=== PATIENT | male | born 1960 | race Caucasian/White ===

== ENCOUNTER → 2018-04-02 11:35 | Outpatient (CLI) | payer SELFPAY ==
[2018-04-02 14:20] LABS: Anion Gap 9 (5-15); BUN 16 mg/dL (7-18); BUN/Creat Ratio 14.3 RATIO (10-20); Calcium,Total 8.9 mg/dL (8.5-10.1); Chloride 105 mmol/L (98-107); Cholesterol 221 mg/dL (200); Creatinine, Serum 1.12 mg/dL (0.70-1.30); EST Glomerular Filtration Rate 71 mL/min (>60); Est Glom Filt Rate - Afr Amer 86 mL/min (>60); Glucose 76 mg/dL (74-106); High Density Lipoprotein 36 mg/dL; PSA,Total - Annual Screen 2.43 ng/mL (0.00-4.00); Potassium 3.9 mmol/L (3.5-5.1); Sodium Level 137 mmol/L (136-145); Thyroid Stim Hormone (TSH) 1.64 uIU/mL (0.358-3.74); Triglycerides 207 mg/dL; Very Low Density Lipoprotein 41 mg/dL (5-40)
[2018-04-03 09:14] LABS: Vitamin D,25 Hydroxy 16.9 ng/mL (29.95-100.01)
== END ==
PROVIDERS: Family Provider Family Medicine; PCP Family Medicine; Visit Provider Family Medicine
DX: Z00.00 Encounter for general adult medical examination without abnormal findings (principal)
CPT/HCPCS: 36415; 80048; 80061; 82306; 84153; 84443; G0103

== ENCOUNTER → 2018-04-23 06:07 | Outpatient (CLI) | payer BC, SELFPAY ==
--- NOTE | 2018-04-23 20:24 | STRESSREP ---
Stress Test Report Date: 04/23/2018 Procedure: Exercise tolerance test/imaging study Indications: Hyperlipidemia; family history of cardiovascular disease Consent: Per the patient Procedure: The patient exercised on a Fawad protocol for 4 minutes and 30 seconds completing Stage I and 1 minute and 30 seconds of Stage II achieving a peak heart rate of 151 bpm (93 % predicted maximal heart rate) with a peak blood pressure 184/76 mmHg and a peak MET capacity of 6 METs. The baseline ECG demonstrated normal sinus rhythm. The peak exercise ECG demonstrated no obvious ECG changes. There were no cardiac dysrhythmias pretest, during exercise, or recovery. The functional capacity was considered decreased. There was no complaint of chest discomfort during exercise or recovery. The examination was discontinued secondary to dyspnea. Impression: 1. Technically adequate (percent predicted maximal heart rate greater than 85%) exercise tolerance test 2. Peak exercise ECG demonstrated no obvious ECG change 3. There were no cardiac dysrhythmias pretest, during exercise, or recovery. 4. Nuclear images pending Myocardial perfusion imaging study: Technique: The patient was injected with 11.5 mCi of technetium 99m Cardiolite and subsequently rest SPECT Cardiolite nuclear imaging was obtained in the horizontal long, vertical long, and short axis views. The patient exercised on a Fawad protocol for 4 minutes and 30 seconds completing Stage 1 and 1 minute and 30 seconds of Stage II achieving a peak heart rate of 151 bpm (93 % predicted maximal heart rate) with a peak blood pressure 184/76 mmHg and a peak MET capacity of 6 METs. The patient was injected with 33.1 mCi of technetium 99m Cardiolite and subsequently stress SPECT Cardiolite nuclear imaging was obtained in the horizontal long, vertical long, and short axis views. A gated Cardiolite study at peak stress was obtained. Interpretation: Rest and stress SPECT Cardiolite nuclear imaging status post realignment, normalization, and attenuation correction, demonstrates the appearance of a small area of subtle diminished tracer uptake near the apical segments without significant change between rest and stress. There is end systolic thickening and brightening. The gated Cardiolite study demonstrates myocardial thickening and inward wall motion. The reported LVEF is 59 %. Impression: 1. Rest and stress SPECT Cardiolite nuclear imaging demonstrate myocardial perfusion changes appearing compatible with the effects of physiologic apical thinning with no myocardial perfusion changes considered diagnostic for associated stress-induced myocardial ischemia. 2. The gated Cardiolite study reports an LVEF of 59 %. This note was generated with [employer] software. It may contain incorrect words, spelling, and punctuation that were not noted in checking the note before signing.
--- NOTE | 2018-04-23 20:28 | STRESSREP_ITS ---
Stress Test Report Date: 04/23/2018 Procedure: Exercise tolerance test/imaging study Indications: Hyperlipidemia; family history of cardiovascular disease Consent: Per the patient Procedure: The patient exercised on a Fawad protocol for 4 minutes and 30 seconds completing Stage I and 1 minute and 30 seconds of Stage II achieving a peak heart rate of 151 bpm (93 % predicted maximal heart rate) with a peak blood pressure 184/76 mmHg and a peak MET capacity of 6 METs. The baseline ECG demonstrated normal sinus rhythm. The peak exercise ECG demonstrated no obvious ECG changes. There were no cardiac dysrhythmias pretest, during exercise, or recovery. The functional capacity was considered decreased. There was no complaint of chest discomfort during exercise or recovery. The examination was discontinued secondary to dyspnea. Impression: 1. Technically adequate (percent predicted maximal heart rate greater than 85% ) exercise tolerance test 2. Peak exercise ECG demonstrated no obvious ECG change 3. There were no cardiac dysrhythmias pretest, during exercise, or recovery. 4. Nuclear images pending Myocardial perfusion imaging study: Technique: The patient was injected with 11.5 mCi of technetium 99m Cardiolite and subsequently rest SPECT Cardiolite nuclear imaging was obtained in the horizontal long, vertical long, and short axis views. The patient exercised on a Fawad protocol for 4 minutes and 30 seconds completing Stage 1 and 1 minute and 30 seconds of Stage II achieving a peak heart rate of 151 bpm (93 % predicted maximal heart rate) with a peak blood pressure 184/76 mmHg and a peak MET capacity of 6 METs. The patient was injected with 33.1 mCi of technetium 99m Cardiolite and subsequently stress SPECT Cardiolite nuclear imaging was obtained in the horizontal long, vertical long, and short axis views. A gated Cardiolite study at peak stress was obtained. Interpretation: Rest and stress SPECT Cardiolite nuclear imaging status post realignment, normalization, and attenuation correction, demonstrates the appearance of a small area of subtle diminished tracer uptake near the apical segments without significant change between rest and stress. There is end systolic thickening and brightening. The gated Cardiolite study demonstrates myocardial thickening and inward wall motion. The reported LVEF is 59 %. Impression: 1. Rest and stress SPECT Cardiolite nuclear imaging demonstrate myocardial perfusion changes appearing compatible with the effects of physiologic apical thinning with no myocardial perfusion changes considered diagnostic for associated stress-induced myocardial ischemia. 2. The gated Cardiolite study reports an LVEF of 59 %. This note was generated with [employer] software. It may contain incorrect words, spelling, and punctuation that were not noted in checking the note before signing.
== END ==
PROVIDERS: Family Provider Family Medicine; PCP Family Medicine; Visit Provider Family Medicine
DX: Z82.49 Family history of ischemic heart disease and other diseases of the circulatory system (principal)
CPT/HCPCS: 78452; 93017; A9500; A4216

== ENCOUNTER 2019-10-27 23:43 | Emergency (ER) | payer BC, SELFPAY ==
[2019-10-27 23:44] VITALS: BP 143/86; PULSE 81; RESP 18; TEMP 36.7; O2SAT 99; BMI 29.6
--- NOTE | 2019-10-27 23:57 | EKG12_ITS ---
Test Reason : SOB Blood Pressure : / mmHG Vent. Rate : 072 BPM Atrial Rate : 072 BPM P-R Int : 150 ms QRS Dur : 090 ms QT Int : 364 ms P-R-T Axes : 068 004 041 degrees QTc Int : 398 ms Normal sinus rhythm Possible Inferior infarct , age undetermined Abnormal ECG Confirmed by GM FRANCO, SAMMIE ([id number]), field map editor CARLOS SMALL ([id number]) on 10/28/2019 1:41:48 PM Referred By: GEOFFREY Confirmed By:SAMMIE WORRELL MD
--- NOTE | 2019-10-27 23:58 | ED.VIS.GEN ---
History of Present Illness Chief Complaint: Shortness of Breath Informant: Patient Narrative: Presents with dry cough muscle aches sore throat since yesterday. Denies any fevers or chills. No coronavirus exposures. He did not get a flu shot. 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 For the last 3 days after he vomited once he has had some mild chest burning. Denies any cardiac history. Current severity is mild. Worsened by nothing. Relieved by nothing. Denies any medical problems. Also stated he has bilateral red eyes with clear drainage Past Medical History - Allergies and Home Meds Allergies/Adverse Reactions: Allergies No Known Allergies Allergy (Verified 10/27/19 23:47) Primary Care Physician: Saad Whiting MD [Primary Care Provider] - Prior records reviewed: Yes Past Medical History: - - Denies Surgical History: cholecystectomy Lives: With Family Smoking Status: Never smoker Alcohol: None Drugs: None Review of Systems General: Denies: Chills, Fever, Sweats Eyes: Denies: Visual changes - bilaterally, Diplopia ENT: Reports: Sore throat. Denies: Rhinorrhea Cardiovascular: Reports: Chest pain. Denies: Palpitations Respiratory: Reports: Cough. Denies: Dyspnea, Dyspnea on exertion Gastrointestinal: Reports: Vomiting. Denies: Abdominal pain, Nausea, Diarrhea, Melena, Hematochezia Genitourinary: Denies: Dysuria, Hematuria, Frequency Musculoskeletal: Reports: Myalgias. Denies: Back pain, Extremity Pain Skin: Denies: Rash, Wounds Neurological: Denies: Headache, Weakness, Numbness Hematologic: Denies: Easy bruising, Easy bleeding Physical Exam Vital Signs/Narrative: Vital Signs Temp Pulse Resp BP Pulse Ox 10/27/19 23:44 98.1 F 81 18 143/86 H 99 General: Well nourished, Well developed, No Acute Distress Head: Normocephalic, Atraumatic Eyes: Perrl, EOMI ENT: Moist mucous membranes, No rhinorrhea, - - Mild oropharyngeal erythema without any swelling to his tonsils. No exudate Neck: Supple, Nontender Cardiovascular: Regular rate, Regular rhythm, No murmurs Respiratory: No distress, CTA bilaterally, Chest nontender Abdomen: Soft, Nontender, Nondistended, Normal bowel sounds Back: Nontender, Normal Inspection Extremities: Nontender, No edema Skin: Normal color, No rash Neurological: Alert, Oriented x3, Cranial nerves II-XII grossly intact, Normal Strength, Normal Sensation Psychological: Normal affect, Normal Mood Diagnostic/Tx/Re-eval - Medical Decision Making KG shows sinus rhythm at a rate of 72 with no acute ischemia or arrhythmia unchanged from prior. Chest x-ray normal. Lab work normal including CBC BMP troponin and influenza. At this time I feel the patient has an influenza-like syndrome. He may have coronavirus. Patient was educated on this. He will go home and self quarantine for 14 days and return if he worsens. He has a normal pulse ox and temperature. He does have a lot of viral symptoms. This could just be however a flulike illness that is not coronavirus. Given an excuse for 2 weeks off of work. He will use Visine eyedrops for his eye redness. He does feel better after the GI cocktail which I suspect is heartburn from vomiting. We will follow-up as an outpatient and do symptomatic Tylenol ED Disposition - Plan for ED Patient: Disposition: Home or Assisted Living Diagnosis: Influenza-like illness Instructions: ED Viral Syndrome Referrals: Saad Whiting MD [Primary Care Provider] -
--- NOTE | 2019-10-28 | RAD_ITS ---
STUDY: X-RAY CHEST REASON FOR EXAM: Male, 59 years old. Chest pain, shortness breath, cough, sore throat. Leg edema. TECHNIQUE: PA and lateral chest. COMPARISON: None. FINDINGS: The lungs are clear and expanded. There is no demonstrated pleural abnormality. Normal size heart. Normal mediastinum and beatrice. Normal visualized pulmonary arteries. Normal visualized aortic arch and descending thoracic aorta. Normal visualized thoracic spine. Normal visualized ribs, clavicles, and shoulders. There is no demonstrated abnormality of the visualized soft tissue structures of the upper abdomen. RAD/Chest PA and Lateral IMPRESSION: No acute cardiopulmonary disease. Electronically Signed: Nino Street MD at 0:43 EDT , Service support ,
[2019-10-28 00:15] LABS: Absolute Lymphocyte Count 3.01 X10^3/uL (0.83-4.51); Absolute Neutrophil Count 4.5 X10^3/uL (2.0-7.7); Basophil# 0.07 X10^3/uL; Basophil% 0.8 % (0-1); Eosinophil# 0.24 X10^3/uL; Eosinophils% 2.8 % (0-5); Hematocrit 47.2 % (40-54); Hemoglobin 16.4 g/dL (13.0-16.5); Lymphocyte # 3.01 X10^3/ul (4.0); Lymphocyte % 35.2 % (19-41); Mean Corp Hgb Conc 34.7 g/dL (32-36); Mean Corpuscular Hgb 32.2 pg (27.0-32.0); Mean Corpuscular Volume 92.7 fL (80-94); Monocyte# 0.69 X10^3/uL; Monocyte% 8.1 % (0-10); NRBC Flagged by Analyzer 0 % (0-5); Neutrophil # 4.48 X10^3/uL (2.7-7.7); Neutrophil % 52.5 % (47-70); POSITIVE MORPHOLOGY YES; Platelet Count 201 K/mm3 (150-450); RBC Distribution Width CV 11.9 % (11.6-14.6); RBC Distribution Width SD 40.9 fl (35.1-43.9); Red Blood Count 5.09 M/mm3 (4.6-6.2); White Blood Count 8.5 K/mm3 (4.4-11.0)
[2019-10-28 00:16] LABS: Differential Indicated SCAN CRITERIA MET
[2019-10-28] MEDS: Mag Hydrox/Al Hydrox/Simeth 30 ML UDC PO (00:17)
[2019-10-28 00:20] VITALS: BP 144/88; PULSE 78; RESP 14; TEMP 36.7; O2SAT 99
[2019-10-28 00:29] LABS: Differential Comment SCANNED
[2019-10-28 00:31] LABS: Reactive Lymphocyte RARE
[2019-10-28 00:56] LABS: Anion Gap 9 (5-15); BUN 13 mg/dL (7-18); BUN/Creat Ratio 10.3 RATIO (10-20); Calcium,Total 8.7 mg/dL (8.5-10.1); Chloride 106 mmol/L (98-107); Creatinine, Serum 1.26 mg/dL (0.70-1.30); EST Glomerular Filtration Rate 62 mL/min (>60); Est Glom Filt Rate - Afr Amer 75 mL/min (>60); Estimated Creatinine Clearance 58.29 ml/min; Glucose 90 mg/dL (74-106); Potassium 4.1 mmol/L (3.5-5.1); Sodium Level 139 mmol/L (136-145)
[2019-10-28 01:18] VITALS: BP 144/84; PULSE 70; RESP 15; TEMP 36.7; O2SAT 99
== END 2019-10-28 01:26 | disposition home or self-care (01) ==
PROVIDERS: Emergency Provider Emergency Medicine; PCP Family Medicine
DX: J06.9 Acute upper respiratory infection, unspecified (principal)
CPT/HCPCS: 71046; 80048; 84484; 85025; 87804; 93005; 99285; A4216

== ENCOUNTER → 2020-09-25 10:44 | Outpatient (CLI) | payer BC, SELFPAY ==
[2020-09-25 13:35] LABS: Anion Gap 7 (5-15); BUN 14 mg/dL (7-18); BUN/Creat Ratio 12.7 RATIO (10-20); Calcium,Total 8.8 mg/dL (8.5-10.1); Chloride 105 mmol/L (98-107); Cholesterol 220 mg/dL (200); EST Glomerular Filtration Rate 72 mL/min (>60); Est Glom Filt Rate - Afr Amer 87 mL/min (>60); Glucose 77 mg/dL (74-106); High Density Lipoprotein 37 mg/dL; PSA,Total - Annual Screen 4.02 ng/mL (0.00-4.00); Potassium 3.8 mmol/L (3.5-5.1); Sodium Level 137 mmol/L (136-145); Triglycerides 197 mg/dL; Very Low Density Lipoprotein 39 mg/dL (5-40)
== END ==
PROVIDERS: PCP Family Medicine; Referring Provider Family Medicine; Visit Provider Family Medicine
DX: Z00.00 Encounter for general adult medical examination without abnormal findings (principal)
CPT/HCPCS: 36415; 80048; 80061; 84153; G0103

== ENCOUNTER → 2021-05-05 09:44 | Outpatient (CLI) | payer BC, SELFPAY ==
[2021-05-05 10:33] LABS: Anion Gap 5 (5-15); BUN 18 mg/dL (7-18); BUN/Creat Ratio 14.9 RATIO (10-20); Calcium,Total 8.8 mg/dL (8.5-10.1); Chloride 106 mmol/L (98-107); Cholesterol 157 mg/dL (200); Creatinine, Serum 1.21 mg/dL (0.70-1.30); EST Glomerular Filtration Rate 65 mL/min (>60); Est Glom Filt Rate - Afr Amer 78 mL/min (>60); Glucose 112 mg/dL (74-106); High Density Lipoprotein 36 mg/dL; Potassium 4.1 mmol/L (3.5-5.1); Sodium Level 138 mmol/L (136-145); Triglycerides 109 mg/dL; Very Low Density Lipoprotein 22 mg/dL (5-40)
== END ==
PROVIDERS: PCP Family Medicine; Referring Provider Family Medicine; Visit Provider Family Medicine
DX: Z00.00 Encounter for general adult medical examination without abnormal findings (principal); N40.0 Benign prostatic hyperplasia without lower urinary tract symptoms
CPT/HCPCS: 36415; 80048; 80061; 84153

== ENCOUNTER 2021-10-05 10:34 | Outpatient (CLI) | payer BC, SELFPAY ==
[2021-10-05 12:43] LABS: ALB/GLOB Ratio 0.8 RATIO (0.9-2.4); AST(SGOT) 41 U/L (15-37); Alanine Aminotransfer ALT/SGPT 54 U/L (16-61); Albumin, Serum 3.5 g/dL (3.2-5.0); Alkaline Phosphatase 86 U/L (45-117); Anion Gap 3 (5-15); BUN 11 mg/dL (7-18); Calcium,Total 9.3 mg/dL (8.5-10.1); Chloride 107 mmol/L (98-107); Cholesterol 158 mg/dL (200); Creatinine, Serum 1.22 mg/dL (0.70-1.30); EST Glomerular Filtration Rate 64 mL/min (>60); Est Glom Filt Rate - Afr Amer 77 mL/min (>60); Globulin 4.2 g/dL (2.2-4.2); Glucose 87 mg/dL (74-106); High Density Lipoprotein 42 mg/dL; Potassium 4.2 mmol/L (3.5-5.1); Protein, Total 7.7 g/dL (6.4-8.2); Sodium Level 136 mmol/L (136-145); Triglycerides 117 mg/dL; Very Low Density Lipoprotein 23 mg/dL (5-40)
== END 2021-10-05 23:59 | disposition home or self-care (01) ==
LOC: MFPLAB 10:38
PROVIDERS: PCP Family Medicine; Referring Provider Family Medicine; Visit Provider Family Medicine
DX: E78.5 Hyperlipidemia, unspecified (principal)
CPT/HCPCS: 36415; 80053; 80061

== ENCOUNTER → 2023-01-27 | Outpatient (CLI) | payer BC, SELFPAY ==
[2023-01-27 18:52] LABS: AST(SGOT) 41 U/L (15-37); Alanine Aminotransfer ALT/SGPT 62 U/L (16-61); Alkaline Phosphatase 67 U/L (45-117); Anion Gap 7 (5-15); BUN 17 mg/dL (7-18); BUN/Creat Ratio 14.4 RATIO (10-20); Calcium,Total 9.1 mg/dL (8.5-10.1); Chloride 106 mmol/L (98-107); Cholesterol 141 mg/dL (200); Creatinine, Serum 1.18 mg/dL (0.70-1.30); EST Glomerular Filtration Rate 66 mL/min (>60); Est Glom Filt Rate - Afr Amer 80 mL/min (>60); Globulin 3.9 g/dL (2.2-4.2); Glucose 84 mg/dL (74-106); High Density Lipoprotein 45 mg/dL; Potassium 3.9 mmol/L (3.5-5.1); Protein, Total 7.9 g/dL (6.4-8.2); Sodium Level 138 mmol/L (136-145); Triglycerides 156 mg/dL; Very Low Density Lipoprotein 31 mg/dL (5-40)
== END | disposition home or self-care (01) ==
LOC: MFPLAB 16:35
PROVIDERS: PCP Family Medicine; Visit Provider Family Medicine
DX: E78.5 Hyperlipidemia, unspecified (principal)
CPT/HCPCS: 36415; 80053; 80061

== ENCOUNTER → 2023-08-09 | Outpatient (CLI) | payer OTHER, SELFPAY ==
--- OUTSIDE RECORDS SUMMARY | 2023-08-09 10:34 | XMS RPT_ITS | CCD ---
Author Name Unknown Address [address] [place] [id number] Organization [facility] Care Team Providers Care Truck Despatcher Name Role Phone ROSINA QUACH PAUL ROBERT Primary Care Unavailable Problems Problem Classification Problem Date Documented Da te Episodic/Chronic Diseases of mouth; excluding dental (2 sources) Diseases of lips; Translations: [Diseases of lips] Onset: 01-25-2023 Episodic Other skin disorders (2 sources) Disorder of the skin and subcutaneous tissue, unspecified; Translations: [Disorder of the skin and subcutaneous tissue, unspecified] Onset: 01-25-2023 Episodic Encounters Encounter Date Encounter Type Care Provider Facility Start: 01-25-2023 End: 01-25-2023 Emergency department patient visit ROSINA JOSÉ ANTONIO QUACH [facility] Payers Date Payer Category Payer Unknown [id number] 1960 Unknown [id number] [id number]. [id number] Summary Purpose Family History No Family History Records Found Advance Directives No Advanced Directives Records Found Additional Source Comments (unrecognized sect ion and content) No Status Records Found INFORMATION SOURCE (unrecogn ized section and content) FOR RECORDS PERTAINING TO PATIENTS WHO ARE OR HAVE BEEN ENROLLED IN A CHEMICAL DEPENDENCY/SUBSTANCEABUSE PROGRAM, SOME INFORMATION MAY BE OMITTED. This clinical summary was aggregated from multiple sources. Caution should be exercised in using it in the provision of clinical care. This summary normalizes information from multiple sources, and as a consequence, information in this document may materially change the coding, format and clinical context of patient data. In addition, data may be omitted in some cases. CLINICAL DECISIONS SHOULD BE BASED ON THE PRIMARY CLINICAL RECORDS. [facility] [employer] provides no warranty or guarantee of the accuracy or completeness of information in this document.
[2023-08-09 11:49] LABS: ALB/GLOB Ratio 0.9 RATIO (0.9-2.4); AST(SGOT) 27 U/L (15-37); Alanine Aminotransfer ALT/SGPT 47 U/L (16-61); Albumin, Serum 3.7 g/dL (3.2-5.0); Alkaline Phosphatase 67 U/L (45-117); Anion Gap 4 (5-15); BUN 21 mg/dL (7-18); BUN/Creat Ratio 17.4 RATIO (10-20); Calcium,Total 9.2 mg/dL (8.5-10.1); Chloride 107 mmol/L (98-107); Cholesterol 165 mg/dL (200); Creatinine, Serum 1.21 mg/dL (0.70-1.30); EST Glomerular Filtration Rate 64 mL/min (>60); Est Glom Filt Rate - Afr Amer 78 mL/min (>60); Globulin 4.1 g/dL (2.2-4.2); Glucose 119 mg/dL (74-106); High Density Lipoprotein 48 mg/dL; Potassium 4.3 mmol/L (3.5-5.1); Protein, Total 7.8 g/dL (6.4-8.2); Sodium Level 138 mmol/L (136-145); Thyroid Stim Hormone (TSH) 1.84 uIU/mL (0.358-3.74); Triglycerides 103 mg/dL; Very Low Density Lipoprotein 21 mg/dL (5-40)
== END | disposition home or self-care (01) ==
PROVIDERS: PCP Family Medicine; Referring Provider Family Medicine; Visit Provider Family Medicine
DX: E78.5 Hyperlipidemia, unspecified (principal); Z86.59 Personal history of other mental and behavioral disorders
CPT/HCPCS: 36415; 80053; 80061; 84443

== ENCOUNTER → 2023-10-11 | Outpatient (CLI) | payer OTHER, SELFPAY ==
--- OUTSIDE RECORDS SUMMARY | 2023-10-11 10:23 | XMS RPT_ITS | CCD ---
Author Name Unknown Address [address] [place] [address] Organization [facility] Care Team Providers Care Web Site Project Manager Name Role Phone ROSINA QUACH PAUL ROBERT [...] department patient visit ROSINA JOSÉ ANTONIO QUACH [facility] Payers Date Payer Category Payer Unknown [id number] 1960 Unknown [id number] [id number]. [id number] Summary Purpose Family History No Family History [...] BE BASED ON THE PRIMARY CLINICAL RECORDS. [facility] [employer] provides no warranty or guarantee of the accuracy or completeness of information in this document.
[2023-10-11 12:08] LABS: Anion Gap 4 (5-15); BUN 24 mg/dL (7-18); BUN/Creat Ratio 20.9 RATIO (10-20); Calcium,Total 9.3 mg/dL (8.5-10.1); Chloride 108 mmol/L (98-107); Creatinine, Serum 1.15 mg/dL (0.70-1.30); EST Glomerular Filtration Rate 68 mL/min (>60); Est Glom Filt Rate - Afr Amer 82 mL/min (>60); Glucose 109 mg/dL (74-106); Sodium Level 140 mmol/L (136-145)
== END | disposition home or self-care (01) ==
LOC: LAB 10:21
PROVIDERS: PCP Family Medicine; Referring Provider Family Medicine; Visit Provider Family Medicine
DX: Z00.00 Encounter for general adult medical examination without abnormal findings (principal)
CPT/HCPCS: 36415; 80048; 84153; G0103

== ENCOUNTER → 2023-10-21 | Outpatient (CLI) | payer OTHER, SELFPAY ==
--- NOTE | 2023-10-21 17:22 | CT_ITS ---
STUDY: LOW DOSE CT LUNG CANCER SCREENING REASON FOR EXAM: Male, 63 years old. Smoker RADIATION DOSAGE (If Supplied By Facility): CTDIvol = ( 3.02 ) mGy, DLP = ( 108.72 ) mGycm TECHNIQUE: No contrast was administered. Low dose technique was utilized (average mAS-38 and kVp 120). 1.25 mm axial source images with a slice interval of 1.25-mm were reconstructed in lung windows. 2.5 mm axial source images with a slice interval of 2.5-mm were reconstructed in lung windows. 5.0 mm axial source images with a slice interval of 5.0-mm were reconstructed in soft tissue windows. COMPARISON: None. NODULES: No suspicious nodules are seen. Emphysema: Minimal increased markings in the anterior aspect of the left upper lobe suggestive of scarring. Minimal scarring is also seen in the posterior aspect of the lingular segment of the left upper lobe adjacent to the left major fissure. Endobronchial lesion: None Aorta: Atherosclerotic plaque formation of the aortic arch. CORONARY ARTERIES: Coronary artery calcification is seen. Heart: Unremarkable. Pulmonary artery: Unremarkable. Mediastinal nodes: Tiny mediastinal lymph nodes. Other chest and abdominal findings: CT/Low Dose CT Lung Screening IMPRESSION: Lung-RADS category 2 - Continue annual screening with LDCT in 12 months. IMPORTANT NOTES FOR USE: ACR Lung-RADS Version 1.1 Assessment Categories Release Date: 2018 Category: Coded 0-4 bases on nodule(s) with highest degree of suspicion. Negative screen is defined as categories 1 and 2; a positive screen is defined as categories 3 and 4. Category 3 and 4A nodules that are unchanged on interval CT should be coded as category 2, and individuals returned to screening in 12 months. Category 4X: Category 3 or 4 nodules with additional imaging findings that increase the suspicion of lung cancer, such as spiculation, GGN that doubles in size in 1 year, enlarged lymph notes, etc. Category Modifiers: S (significant finding unrelated to lung cancer) Electronically Signed: Garland Larios MD at 9:06 EDT ,
== END | disposition home or self-care (01) ==
LOC: CT 17:13
PROVIDERS: PCP Family Medicine; Referring Provider Family Medicine; Visit Provider Family Medicine
DX: Z00.00 Encounter for general adult medical examination without abnormal findings (principal); F17.200 Nicotine dependence, unspecified, uncomplicated
CPT/HCPCS: 71271

== ENCOUNTER 2023-12-01 12:41 | Day surgery (SDC) | payer OTHER, SELFPAY ==
[2023-12-01 13:08] VITALS: BP 136/79; PULSE 66; RESP 14; TEMP 36.6; O2SAT 97; BMI 29.2
[2023-12-01] MEDS: Lactated Ringers 1,000 ML 15 ML IV (13:13)
--- NOTE | 2023-12-01 13:45 | HP.PCM_ITS ---
History and Physical Date of Admission: 12/01/23 Intake Vital Signs 10/26/2022:44 11/09/2412:24 Height 5 ft 7 in 5 ft 7 in Weight: 195 lb BMI 30.5 BP 130/80 H Blood Pressure Location Rt brachial Position Sitting Respiration 17 Pulse 62 Pulse Source Monitor Pulse Oximetry (%) 98 Oxygen Delivery Method room air Intake Visit Reasons: COLONOSCOPY SCREENING, IBS Chief Complaint: colonoscopy screening Is patient in pain?: No Allergies No Known Allergies Allergy (Verified 11/10/23 13:26) Medications omeprazole 20 mg capsule,delayed release 20 mg PO DAILY 11/10/23 [History Confirmed 11/10/23] rosuvastatin 5 mg tablet (Crestor) 5 mg PO DAILY 11/10/23 [History Confirmed 11/10/23] tamsulosin 0.4 mg capsule (Flomax) 0.4 mg PO DAILY 11/10/23 [History Confirmed 11/10/23] PFSH Medical History (Updated 11/10/23 @ 13:[address] Javi Pérez MD) Acid reflux Surgical History (Updated 11/10/23 @ 13:24 by Candis Fletcher) History of cholecystectomy Family History (Updated 11/10/23 @ 13:24 by Candis Fletcher) Brother Heart disease CVA (cerebral vascular accident) Social History (Updated 11/10/23 @ 13:24 by Candis Fletcher) Smoking Status: Current every day smoker alcohol intake: never substance use type: does not use HPI HPI HPI: Patient is a 63-year-old male here to discuss his constipation and here for colonoscopy. Patient reports his bowels have become worse and he has tried MiraLAX and fiber and several other medications to no avail. He is having large bowel movements when they do happen. The patient does not have any blood in his stool. He reports his last colonoscopy was in 2016 and no polyps were removed. ROS General General: No weight change, appetite, fatigue, colon cancer, breast cancer or weakness HEENT HEENT: No difficulty swallowing, eye injury, eye surgery, swollen glands or hoarseness Endo Endocrine: No thyroid disease, diabetes mellitus, thyroid cancer, Hair loss, heat intolerance or cold intolerance Skin Skin: No rash or changing moles Musc Musculoskeletal: No back problems, arthritis, rheumatoid arthritis, gout or joint pain Cardio Cardiovascular: No murmur, pacemaker, heart disease, atrial fibrillation, high blood pressure, heart attack, heart stent, palpitations, shortness of breat with exertion or chest pain Psych Psychiatric: No depression, anxiety or hearing voices Resp Respiratory: No shortness of breath, No sleep apnea, No cough, No COPD, No asthma, No emphysema and No wheezing Gastro Gastrointestinal: No abdominal pain, No nausea or vomiting, Yes diarrhea, Yes constipation, No blood in stool, Yes acid reflux, No hemorrhoids, No ulcers, No gallbladder problem and No black,tarry stools Dago Hematologic: No blood thinners, No blood disorders, No bleeding, No anemia and No blood clots Neuro Neurologic: No system reviewed and no additional complaints, except as documented, No as per HPI, No abnormal gait, No abnormal hearing, No abnormal movements, No abnormal speech, No behavioral changes, No burning sensations, No confusion, No convulsions, No disequilibrium, No dizziness, No localized weakness, No frequent falls, No headache(s), No lack of coordination, No loss of vision, No memory loss, No numbness, No other visual disturbances, No radicular pain, No restless legs, No sensory deficit, No syncope, No tingling, No tremor(s), No weakness and No other Exam Const General: cooperative Orientation: alert and oriented x3 HENMT Head: normal to inspection Neck Neck: normal visual inspection and full ROM Chest Chest palpation & inspection: normal inspection of the chest Resp Effort & Inspection: normal respiratory effort Auscultation: clear to auscultation bilaterally Cardio Rate: regular rate Rhythm: regular rhythm GI Inspection: non-distended Palpation: soft and nontender Skin General: no rashes or lesions noted Neuro General: patient alert and patient oriented x3 Extrem General: full ROM Psych Appearance: grossly normal Mental Status: mental status grossly normal Assessment and Plan Assessment and Plan (1) Constipation: Status: Acute Qualifiers: Constipation type: unspecified constipation type Qualified Code(s): K59.00 - Constipation, unspecified Plan: I will perform colonoscopy form to evaluate why he is feeling so backed up and constipated to ensure there is no stricture or mass. His last colonoscopy was 8 years ago. I explained endoscopy in detail to the patient. I explained the risks including but not limited to stroke or heart attack with anesthesia, perforation of the GI tract, bleeding, infection. I explained that any of these could necessitate further emergency surgery. The patient understands and all questions were answered sufficiently. The patient wishes to proceed with procedure. Javi Pérez MD Pager: [facility] [address] [place] [address], [address] [place] [address] Office: I have examined the patient and the H&P has been reviewed. There are no clinical changes since date of exam.
[2023-12-01 14:14] VITALS: BP 125/85; BP 136/79; PULSE 70; RESP 16; TEMP 36.1; O2SAT 96
[2023-12-01 14:20] VITALS: BP 122/79; BP 136/79; PULSE 64; RESP 16; O2SAT 96
[2023-12-01 14:25] VITALS: BP 123/92; BP 136/79; PULSE 64; RESP 16; TEMP 36.5; O2SAT 97
--- NOTE | 2023-12-01 14:26 | OP.COLON_ITS ---
Patient Name: Narayan Almeida Procedure Date: 12/01/2023 1:53 PM Date of : 1960 Age: 63 Procedure: Colonoscopy Indications: Constipation Providers: Javi Pérez MD Referring MD: Saad Whiting MD Medicines: Propofol per Anesthesia Patient Profile: This is a 63 year old male. Refer to note in patient chart for documentation of history and physical. Last Colonoscopy: none. The patient's first colonoscopy is today. Complications: No immediate complications. Procedure: Pre-Anesthesia Assessment: - Prior to the procedure, a History and Physical was performed, and patient medications and allergies were reviewed. The patient's tolerance of previous anesthesia was also reviewed. The risks and benefits of the procedure and the sedation options and risks were discussed with the patient. All questions were answered, and informed consent was obtained. Prior Anticoagulants: The patient has taken no anticoagulant or antiplatelet agents. After reviewing the risks and benefits, the patient was deemed in satisfactory condition to undergo the procedure. After I obtained informed consent, the scope was passed under direct vision. Throughout the procedure, the patient's blood pressure, pulse, and oxygen saturations were monitored continuously. The Colonoscope was introduced through the anus and advanced to the cecum, identified by appendiceal orifice and ileocecal valve. The colonoscopy was performed without difficulty. The patient tolerated the procedure well. The quality of the bowel preparation was good. The ileocecal valve, appendiceal orifice, and rectum were photographed. Scope In: 2:01:56 PM Scope Withdrawal Time 0 hours 4 minutes 38 seconds Scope Out: 2:11:14 PM Total Procedure Duration Time 0 hours 9 minutes 18 seconds Findings: The entire examined colon appeared normal on direct and retroflexion views. Impression: - The entire examined colon is normal on direct and retroflexion views. - No specimens collected. Recommendation: - Discharge patient to home. - Resume previous diet. - Continue present medications. - Repeat colonoscopy in 10 years for screening purposes. Procedure Code(s): --- Professional --- 72045, Colonoscopy, flexible; diagnostic, including collection of specimen(s) by brushing or washing, when performed (separate procedure) Diagnosis Code(s): --- Professional --- K59.00, Constipation, unspecified CPT copyright 2021 [employer]. All rights reserved. The codes documented in this report are preliminary and upon lead vulcanizing operator review may be revised to meet current compliance requirements. Javi Pérez MD 12/01/2023 2:26:07 PM This report has been signed electronically. Number of Addenda: 0 Note Initiated On: 12/01/2023 1:53 PM
--- NOTE | 2023-12-01 14:26 | OP.CCLET_ITS ---
12/01/2023 Saad Whiitng MD [address] [place] [address] Re : Colonoscopy procedure for Narayan Almeida Dear Dr. Whiting This procedure was performed on Friday, December 01, 2023. My impressions and recommendations are as follows: Impressions : - The entire examined colon is normal on direct and retroflexion views. - No specimens collected. Recommendations : - Discharge patient to home. - Resume previous diet. - Continue present medications. - Repeat colonoscopy in 10 years for screening purposes. My findings are described in the full procedure note, which is enclosed. If I can be of further assistance, please feel free to contact me at Doctor phone number(s): , Work: . Sincerely, Javi éPrez MD 12/01/2023 2:26:07 PM This report has been signed electronically.
[2023-12-01 14:42] VITALS: BP 136/79
== END 2023-12-01 15:05 | disposition home or self-care (01) ==
LOC: EN 12:47 → AC 12:48
PROVIDERS: PCP Family Medicine; Referring Provider Family Medicine; Visit Provider Surgery
PROC: 0DJD8ZZ Inspection of Lower Intestinal Tract, Via Natural or Artificial Opening Endoscopic (ICD-10-PCS; CPT 45378; principal; 2023-12-01 13:55)
DX: K59.00 Constipation, unspecified (principal); F17.200 Nicotine dependence, unspecified, uncomplicated; Z90.49 Acquired absence of other specified parts of digestive tract; K21.9 Gastro-esophageal reflux disease without esophagitis
CPT/HCPCS: 45378; J7120

== ENCOUNTER → 2024-06-03 | Outpatient (CLI) | payer OTHER, SELFPAY ==
[2024-06-03 18:07] LABS: ALB/GLOB Ratio 1.1 RATIO (0.9-2.4); AST(SGOT) 38 U/L (15-37); Alanine Aminotransfer ALT/SGPT 51 U/L (16-61); Albumin, Serum 3.9 g/dL (3.2-5.0); Alkaline Phosphatase 66 U/L (45-117); Anion Gap 5 (5-15); BUN 25 mg/dL (7-18); BUN/Creat Ratio 18.7 RATIO (10-20); Calcium,Total 9.1 mg/dL (8.5-10.1); Chloride 106 mmol/L (98-107); Cholesterol 109 mg/dL (200); Creatinine, Serum 1.34 mg/dL (0.70-1.30); EST Glomerular Filtration Rate 57 mL/min (>60); Est Glom Filt Rate - Afr Amer 69 mL/min (>60); Globulin 3.7 g/dL (2.2-4.2); Glucose 94 mg/dL (74-106); High Density Lipoprotein 31 mg/dL; Potassium 4.3 mmol/L (3.5-5.1); Protein, Total 7.6 g/dL (6.4-8.2); Sodium Level 139 mmol/L (136-145); Triglycerides 111 mg/dL; Very Low Density Lipoprotein 22 mg/dL (5-40)
== END | disposition home or self-care (01) ==
LOC: MTLAB 16:36
PROVIDERS: PCP Family Medicine; Referring Provider Family Medicine; Visit Provider Family Medicine
DX: E78.5 Hyperlipidemia, unspecified (principal)
CPT/HCPCS: 36415; 80053; 80061

== ENCOUNTER → 2024-10-30 | Outpatient (CLI) | payer MEDICARE, SELFPAY ==
[2024-10-30 13:03] LABS: ALB/GLOB Ratio 1.3 RATIO (0.9-2.4); AST(SGOT) 33 U/L (<=37); Alanine Aminotransfer ALT/SGPT 51 U/L (<=46); Albumin, Serum 4.4 g/dL (3.4-4.8); Alkaline Phosphatase 70 U/L (40-129); Anion Gap 12 (5-15); BUN 16 mg/dL (4-19); BUN/Creat Ratio 11.8 RATIO (10-20); Calcium,Total 9.5 mg/dL (7.6-11.0); Carbon Dioxide 23.4 mmol/L (21.0-32.0); Chloride 102 mmol/L (98-108); Cholesterol 253 mg/dL (<=200); Creatinine, Serum 1.37 mg/dL (0.70-1.20); EST Glomerular Filtration Rate 57 (>60); Globulin 3.3 g/dL (2.2-4.2); Glucose 104 mg/dL (70-99); High Density Lipoprotein 46 mg/dL; Low Density Lipoprotein Calc. 169 mg/dL; Potassium 4.6 mmol/L (3.3-5.1); Protein, Total 7.6 g/dL (5.9-8.4); Sodium Level 138 mmol/L (133-145); Triglycerides 191 mg/dL; Very Low Density Lipoprotein 38 mg/dL (5-40); cholesterol:hdl ratio screen 5.54
== END | disposition home or self-care (01) ==
LOC: LAB 09:42
PROVIDERS: PCP Family Medicine; Referring Provider Family Medicine; Visit Provider Family Medicine
DX: E78.5 Hyperlipidemia, unspecified (principal)
CPT/HCPCS: 36415; 80053; 80061

== ENCOUNTER → 2025-01-01 | Outpatient (CLI) | payer MEDICARE, SELFPAY ==
[2025-01-01 11:02] LABS: ALB/GLOB Ratio 1.4 RATIO (0.9-2.4); AST(SGOT) 32 U/L (<=37); Alanine Aminotransfer ALT/SGPT 40 U/L (<=46); Albumin, Serum 4.3 g/dL (3.4-4.8); Alkaline Phosphatase 78 U/L (40-129); Anion Gap 11 (5-15); BUN 15 mg/dL (4-19); Calcium,Total 9.1 mg/dL (7.6-11.0); Chloride 103 mmol/L (98-108); Cholesterol 158 mg/dL (<=200); Creatinine, Serum 1.22 mg/dL (0.70-1.20); EST Glomerular Filtration Rate 66 (>60); Globulin 3.1 g/dL (2.2-4.2); Glucose 114 mg/dL (70-99); High Density Lipoprotein 42 mg/dL; Low Density Lipoprotein Calc. 83 mg/dL; PSA,Total- Diagnostic 4.45 ng/mL (0.00-4.00); Protein, Total 7.4 g/dL (5.9-8.4); Sodium Level 137 mmol/L (133-145); Total Bilirubin 0.67 mg/dL (0.00-1.30); Triglycerides 169 mg/dL; Very Low Density Lipoprotein 34 mg/dL (5-40); cholesterol:hdl ratio screen 3.79
== END | disposition home or self-care (01) ==
PROVIDERS: PCP Family Medicine; Referring Provider Family Medicine; Visit Provider Family Medicine
DX: E78.5 Hyperlipidemia, unspecified (principal); R97.20 Elevated prostate specific antigen [PSA]
CPT/HCPCS: 36415; 80053; 80061; 84153

== ENCOUNTER 2025-05-04 10:29 | Day surgery (SDC) | payer MEDICARE, SELFPAY ==
--- NOTE | 2025-04-25 13:06 | PAT.ANESEVAL ---
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 When Was Last Pacemaker Check QUESTION #4 FULL TEXT: You/Your Family Experience fever (hyperthermia) with Anesthesia Last Oral Intake Last Oral intake: Last Oral Intake NPO since Meds taken in AM with sips of water? 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 Female No 04/25/25 11:18 HX of Motion Sickness No 04/25/25 11:18 HX of N/V After Surgery No 04/25/25 11:18 Non-Smoker Yes 04/25/25 11:18 Duration of Surgery greater No 04/25/25 11:18 than 60 minutes Number of Risk Factors 1 04/25/25 11:18 PONV Score Low Risk 04/25/25 11:18 Height & Weight Height & Weight: Anesthesia: Height & Weight Height 5 ft 7 in 04/14/25 14:13 Respiratory Assessment Respiratory Assessment - cargo station worker: Respiratory Tract Infection Hx - cargo station worker Hx Respiratory Tract Infection No 04/25/25 11:18 STOP Sleep Apnea STOP Sleep Apnea - cargo station worker: STOP Sleep Apnea - cargo station worker Hx Hypertension No 04/25/25 11:18 Hx Sleep Apnea No 04/25/25 11:18 CPAP No 04/25/25 11:18 BIPAP Do you snore loudly (louder No 04/25/25 11:18 than talking or can be heard Do you often feel tired/ No 04/25/25 11:18 fatigued/ sleepy during daytime? Has anyone observed you stop No 04/25/25 11:18 breathing during sleep? STOP Results Negative 04/25/25 11:18 QUESTION #5 FULL TEXT : Do you snore loudly (louder than talking or can be heard through closed doors)? 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 Specify any problems Hx of Preganancy in last 3 N/A 04/25/25 11:18 Months Nurse Filling Out Transfusion VCHRISTIN 04/25/25 11:18 & Questions: Date: 04/25/25 04/25/25 11:18 Time: 11:19 04/25/25 11:18 Patient unable to answer at this time (ie. confused, unrespo /Reproduction History /Reproductive History - cargo station worker: /Reproductive Hx- cargo station worker Hx Now No 04/25/25 11:18 Gestational Age (in weeks): EDC: Hx Hx Para Hx Section SAB No 04/25/25 11:18 PFSH Medical History (Updated 04/25/25 @ 11:18 by Anat [place]) History of stress test Wears glasses Wears dentures History of IBS History of edema Former smoker Acid reflux Home Medications ?Medication ?Instructions ?Recorded ?Last Taken ?Type omeprazole 20 mg capsule,delayed 20 mg PO DAILY 11/10/23 11/30/23 History release tamsulosin 0.4 mg capsule (Flomax) 0.4 mg PO DAILY 11/10/23 11/30/23 History meloxicam 15 mg tablet 15 mg PO QDAY 04/14/25 Unknown History atorvastatin 20 mg tablet 20 mg PO DAILY 04/25/25 Unknown History Allergy/AdvReac Type Severity Reaction Status Date / Time No Known Allergies Allergy Verified 04/25/25 11:14 Family History Brother Heart disease CVA (cerebral vascular accident) Surgical History (Updated 04/25/25 @ 11:18 by Anat [place]) Hx of colonoscopy History of cardiac catheterization (~2004) History of wisdom tooth extraction History of cholecystectomy (~2013) Social History (Updated 04/14/25 @ 14:12 by Candis Fletcher) Smoking Status: Former smoker alcohol intake: former substance use type: does not use Audit: Pertinent Findings Pertinent Findings EKG Perinent findings: 10/27/2019. Normal sinus rhythm 72 bpm. Possible inferior infarct, age undetermined. Stress test pertinent findings: 05/01/2018. EF 59%. Negative. Recommendation Anesthesia Recommendation Anesthesia recommendation: OPTIMIZED for anesthesia
[2025-05-04] VITALS (9 sets, daily range): BP systolic 107–160; BP diastolic 66–98; PULSE 74–107; RESP 16–20; TEMP 36.2–37.2; O2SAT 92–98; BMI 31.1
[2025-05-04] MEDS: Lactated Ringers 1,000 ML 15 ML IV (11:02)
--- NOTE | 2025-05-04 11:10 | PRE.ANES_ITS ---
ASA Classification* ASA Classification ASA Classification: 2 Assessment & Plan Anesthesia* Anesthesia Assessment Anesthesia Assessment: Discussed sedation and/or anesthesia options, risks, benefits, and alternatives with patient/parents/legal guardian/POA. Questions invited. The patient/parents/legal guardian/POA seems to understand and agrees to proceed with anesthesia plan. Reviewed the physical assessment, medical history, allergy history and patient home medications list prior to surgery/procedure/anesthetic and documented any changes. Performed airway and anesthesia risk assessments. Anesthesia Type Anesthesia Type: General History Source History Obtained from:: Patient and Chart Anesthesia Focused Assessment* Temperature: 99.0 F Pulse Rate: 74 Blood Pressure: 107/66 Respiratory Rate: 16 Pulse Ox: 98 Oxygen Delivery Method: Room Air Airway Assessment Mouth opens: >3 cm Mallampati Score: III Teeth Condition: Dentures Neck Range of motion (ROM): Full ROM Labs Anesthesia Preop lab: CBC WBC, (4.4-11.0) 8.5 K/mm3 10/28/19, 00:10 RBC, (4.6-6.2) 5.09 M/mm3 10/28/19, 00:10 Hgb, (13.0-16.5) 16.4 g/dL 10/28/19, 00:10 Hct, (40-54) 47.2 % 10/28/19, 00:10 Plt Count, (150-450) 201 K/mm3 10/28/19, 00:10 CHEMISTRY Potassium, (3.3-5.1) 4.0 mmol/L 01/01/25, 08:41 Sodium, (133-145) 137 mmol/L 01/01/25, 08:41 BUN, (4-19) 15 mg/dL 01/01/25, 08:41 Creatinine, (0.70-1.20) 1.22 mg/dL H 01/01/25, 08:41 Glucose, (70-99) 114 mg/dL H 01/01/25, 08:41 TSH, (0.358-3.74) 1.84 uIU/mL 08/09/23, 10:49 COAG Pre-Assessment Diagnosis/Proposed Procedure Planned Operative Procedure(s): (R) Excision,Right lower back Lipoma Anesthesia History 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 When Was Last Pacemaker Check QUESTION #4 FULL TEXT: You/Your Family Experience fever (hyperthermia) with Anesthesia Last Oral Intake Last Oral intake: Last Oral Intake NPO since 23:00 05/04/25 10:54 Meds taken in AM with sips of No 05/04/25 10:54 water? 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: PONV - state historical society director Female No 04/25/25 11:18 HX of Motion Sickness No 04/25/25 11:18 HX of N/V After Surgery No 04/25/25 11:18 Non-Smoker Yes 04/25/25 11:18 Duration of Surgery greater No 04/25/25 11:18 than 60 minutes Number of Risk Factors 1 04/25/25 11:18 PONV Score Low Risk 04/25/25 11:18 Height & Weight Height & Weight: Anesthesia: Height & Weight Height 5 ft 7 in 05/04/25 10:54 Weight: 90 kg 05/04/25 10:54 Body Mass Index (BMI) 31.1 05/04/25 10:54 Respiratory Assessment Respiratory Assessment - state historical society director: Respiratory Tract Infection Hx - state historical society director Hx Respiratory Tract Infection No 04/25/25 11:18 STOP Sleep Apnea STOP Sleep Apnea - state historical society director: STOP Sleep Apnea - state historical society director Hx Hypertension No 04/25/25 11:18 Hx Sleep Apnea No 04/25/25 11:18 CPAP No 04/25/25 11:18 BIPAP Do you snore loudly (louder No 04/25/25 11:18 than talking or can be heard Do you often feel tired/ No 04/25/25 11:18 fatigued/ sleepy during daytime? Has anyone observed you stop No 04/25/25 11:18 breathing during sleep? STOP Results Negative 04/25/25 11:18 QUESTION #5 FULL TEXT : Do you snore loudly (louder than talking or can be heard through closed doors)? 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 Specify any problems Hx of Preganancy in last 3 N/A 04/25/25 11:18 Months Nurse Filling Out Transfusion VCHRISTIN 04/25/25 11:18 & Questions: Date: 04/25/25 04/25/25 11:18 Time: 11:19 04/25/25 11:18 Patient unable to answer at this time (ie. confused, unrespo /Reproduction History /Reproductive History - state historical society director: /Reproductive Hx- state historical society director Hx Now No 04/25/25 11:18 Gestational Age (in weeks): EDC: Hx Hx Para Hx Section SAB No 04/25/25 11:18 Active Medications Active Medications: Current Medications Generic Name Dose Route Start Last Admin Trade Name Freq PRN Reason Stop Dose Admin Cefazolin Sodium 2 gm/ Sodium 110 mls @ 200 mls/hr 05/04/25 12:15 Chloride IV 05/04/25 12:47 INTRAOP ONE Lactated Ringer's 1,000 mls @ 15 mls/hr 05/04/25 10:45 05/04/25 11:02 IV 15 mls/hr .Q48H DARLEEN Administration PFSH Medical History History of stress test Wears glasses Wears dentures History of IBS History of edema Former smoker Acid reflux Home Medications ?Medication ?Instructions ?Recorded ?Last Taken ?Type omeprazole 20 mg capsule,delayed 20 mg PO DAILY 11/30/23 History release tamsulosin 0.4 mg capsule (Flomax) 0.4 mg PO DAILY 03/2711/30/23 History meloxicam 15 mg tablet 15 mg PO QDAY 04/14/25 Unkno wn History atorvastatin 20 mg tablet 20 mg PO DAILY 04/25/25 Unkn own History Allergy/AdvReac Type Severity Reaction Status Date / Time No Known Allergies Allergy Verified 05/04/25 10:53 Family History Brother Heart disease CVA (cerebral vascular accident) Surgical History Hx of colonoscopy History of cardiac catheterization (~2004) History of wisdom tooth extraction History of cholecystectomy (~2013) Social History Smoking Status: Former smoker alcohol intake: former substance use type: does not use Addt'l Information Additional Findings: > 4 METS Review of Systems (Anesthesia) ROS Narrative System reviewed and no additional complaints, except as documented. Physical Exam Const alert, oriented x3 and average body habitus Resp normal respiratory effort and normal air movement Auscultation: clear to auscultation bilaterally Cardio regular rate and regular rhythm Back/Spine normal ROM Neuro oriented x3 and moves all extremities
--- NOTE | 2025-05-04 11:24 | HP.PCM_ITS ---
History and Physical Date of Admission: 05/04/25 Intake Vital Signs 11/30/2412:08 04/14/2514:13 Height 5 ft 7 in 5 ft 7 in Weight: 191 lb BMI 29.9 BP 133/81 H Blood Pressure Location Rt brachial Position Sitting Respiration 17 Pulse 68 Pulse Source Monitor Pulse Oximetry (%) 97 Oxygen Delivery Method room air Intake Visit Reasons: LIPOMA LOWER BACK Chief Complaint: lipoma lower back Is patient in pain?: Yes (sciatic nerve pain) Allergies No Known Allergies Allergy (Verified 04/14/25 14:15) Medications ?Medication ?Instructions ?Recorded ?Confirmed ?Type omeprazole 20 mg capsule,delayed 20 mg PO DAILY 11/10/23 04/14/25 History release rosuvastatin 5 mg tablet (Crestor) 5 mg PO DAILY 11/10/23 04/14/25 History tamsulosin 0.4 mg capsule (Flomax) 0.4 mg PO DAILY 11/10/23 04/14/25 Histor y meloxicam 15 mg tablet 15 mg PO QDAY 04/14/25 04/14/25 History Have you fallen in the past year?: No PFSH Medical History (Updated 04/14/25 @ 14:12 by Candis Fletcher) Wears glasses Wears dentures History of IBS History of edema Former smoker Acid reflux Surgical History History of cardiac catheterization (~2004) History of wisdom tooth extraction History of cholecystectomy (~2013) Family History Brother Heart disease CVA (cerebral vascular accident) Social History (Updated 04/14/25 @ 14:12 by Candis Fletcher) Smoking Status: Former smoker alcohol intake: former substance use type: does not use HPI HPI HPI: Patient is a 64-year-old male who is here for a lipoma in his right lower back. 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 He says it is very tender especially when bouncing. ROS General General: No weight change, appetite, fatigue, colon cancer, breast cancer or weakness HEENT HEENT: No difficulty swallowing, eye injury, eye surgery, swollen glands or hoarseness Endo Endocrine: No thyroid disease, diabetes mellitus, thyroid cancer, Hair loss, heat intolerance or cold intolerance Skin Skin: No rash or changing moles Musc Musculoskeletal: No back problems, arthritis, rheumatoid arthritis, gout or joint pain Cardio Cardiovascular: No murmur, pacemaker, heart disease, atrial fibrillation, high blood pressure, heart attack, heart stent, palpitations, shortness of breath with exertion or chest pain Psych Psychiatric: No depression, anxiety or hearing voices Resp Respiratory: No shortness of breath, No sleep apnea, No cough, No COPD, No asthma, No emphysema and No wheezing Gastro Gastrointestinal: No abdominal pain, No nausea or vomiting, Yes diarrhea, Yes constipation, No blood in stool, Yes acid reflux, No hemorrhoids, No ulcers, No gallbladder problem and No black,tarry stools Dago Hematologic: No blood thinners, No blood disorders, No bleeding, No anemia and No blood clots Neuro Neurologic: No system reviewed and no additional complaints, except as documented, No as per HPI, No abnormal gait, No abnormal hearing, No abnormal movements, No abnormal speech, No behavioral changes, No burning sensations, No confusion, No convulsions, No disequilibrium, No dizziness, No localized weakness, No frequent falls, No headache(s), No lack of coordination, No loss of vision, No memory loss, No numbness, No other visual disturbances, No radicular pain, No restless legs, No sensory deficit, No syncope, No tingling, No tremor(s), No weakness and No other Exam Const General: cooperative Orientation: alert and oriented x3 HENMT Head: normal to inspection Neck Neck: normal visual inspection and full ROM Chest Chest palpation & inspection: normal inspection of the chest Resp Effort & Inspection: normal respiratory effort Auscultation: clear to auscultation bilaterally Cardio Rate: regular rate Rhythm: regular rhythm GI Inspection: non-distended Palpation: soft and nontender Musc Other: Soft mobile mass in the right lower back just above the belt line Skin General: no rashes or lesions noted Neuro General: patient alert and patient oriented x3 Extrem General: full ROM Psych Appearance: grossly normal Mental Status: mental status grossly normal Assessment and Plan Assessment and Plan (1) Lipoma of back: Status: Acute Plan: The patient has what feels to be a lipoma in the lower right back. He would like this removed as his doctor believes this could be causing his sciatica. I informed him that he might just have sciatica and it might not have anything to do with a lipoma but I could remove this for him. He understands that he may still have pain after the removal. I discussed excising the lipoma in detail with the patient. It is quite deep so I would do it in the operating room. I discussed excision of lipoma as well as the risks of the procedure such as bleeding, infection, and nerve injury. Patient understands the risks and is willing to proceed. Javi Pérez MD Pager: [facility] [address] [place] [address] [address] [place] [address] Office: I have examined the patient and the H&P has been reviewed. There are no clinical changes since date of exam.
[2025-05-04] MEDS: Lactated Ringers 500 ML IV (11:30)
[2025-05-04] MEDS: Lidocaine 1% (5 ml sdv) 5 ML Vial 10 ML IV (11:37)
[2025-05-04] MEDS: Cefazolin 1 GM/5 ML Vial 2 GM IV (11:40)
[2025-05-04] MEDS: fentaNYL 100 MCG/2 ML Ampul IV (11:43)
[2025-05-04] MEDS: Lidocaine 1% /Epi 1:100 (50ml) 50 ML VIAL (12:06)
--- NOTE | 2025-05-04 12:15 | LIP_PTH ---
PATIENT: YANN OHARA LOC: [facility] U#:[id number] AGE/SX: 64/M ROOM: RE05/04/[address]: Dr. Javi Pérez MD : 1960 BED: DIS: 05/04/2025 SPEC #: [id number] RECD: 05/04/25 13:21 STATUS: JOHNNY RETrini #: [id number] MAICO: 05/04/25 12:[address]: Javi Pérez DEPT: SURGICAL PATHOLOGY RECD BY: Jarek King ENTERED: 05/04/25 15:08 SP TYPE: LIPOMA OTHR DR: Dr. Saad Whiting MD Tissues: A - Soft tissues, NOS Procedures: Surgery Specimen Level III HEADER OPERATION: Excision right lower back lipoma PRE-OP DIAGNOSIS: Right lower back lipoma TISSUE SUBMITTED: A- Right lower back lipoma MICROSCOPIC DIAGNOSIS A. Soft tissue, right lower back, lipoma, excision: * Mature adipose consistent with lipoma. MICROSCOPIC DESCRIPTION Slides are reviewed. GROSS DESCRIPTION A. Received in formalin labeled with the patient's name and date of . Designated as right lower back lipoma is a acevedo-yellow, lobulated, shaggy and disrupted soft tissue mass, collectively measuring 7.8 x 6.7 x 2.8 cm in aggregate. Sectioning reveals focally erythematous but otherwise homogenous cut surfaces with areas of threadlike fibrosis. Dry Starch Operator sections are submitted in 4 cassettes. MD 05/04/2025PT:[id number]
--- NOTE | 2025-05-04 12:16 | OP.PCM_ITS ---
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: Yes Etl Manager: Amy Ryan Tasks completed by registered medical assistant: Retracting Type of Anesthesia: General/Regional RN Documented Start/Stop Times: Operation Date: 05/04/25 12:15 Case Time Into Pre-Op 05/04/25 10:37 Out of Pre-Op 05/04/25 11:30 Anesthesia Start 05/04/25 11:34 Into Room 05/04/25 11:34 Procedure Start 05/04/25 11:54 Procedure End 05/04/25 12:07 Anesthesia End 05/04/25 12:15 Out of Room 05/04/25 12:15 Procedure Start Time: 11:54 Procedure Stop Time: 12:15 Select all DRAINS/GRAFTS/IMPLANTS that apply: None Estimated Blood Loss: 5 Specimen collected: Yes Description of specimen(s) removed: Right lower back lipoma Description of surgery: Patient was brought to the operating room and general anesthesia was induced. The patient was placed in prone jackknife position. The area in the right lower back was ultrasounded and the area was circled. The back was prepped and draped in usual sterile fashion. An incision was marked and made with a scalpel. It was deepened to the subcutaneous tissue. Electrocautery was used to maintain hemostasis. The lipoma was evident and it was dissected free bluntly and with electrocautery until it was removed. The cavity was irrigated and suctioned dry. The skin was then closed with interrupted 3-0 Vicryl sutures and Dermabond. Patient tolerated the procedure well. The specimen was approximately 10 cm in diameter and it was deep Surgical Findings: Right lower back lipoma Complications Complications: No
--- NOTE | 2025-05-04 12:19 | DCINST_ITS ---
Discharge Instructions Diet Discharge Diet: Light diet - advance as tolerated Activity Discharge Activity: May Drive (when off narcotics) and May Shower Dressing / Incision Call your doctor if your incision/area has: Continuous Slow Oozing, Sudden Increased Bleeding, Increased Pain/ Swelling, Increased Redness, Foul Smelling Discharge and Swelling at the incision site Call your doctor if you observe: Fever of 101 or Higher Cleanse incision/area with: Soap & Water Follow Up Care Please Follow Up With: Javi Pérez MD When: Please call to schedule 2 week follow up appointment. [phone] Test Results: Test results from this visit will be discussed in further detail at your follow- up appointment, if applicable. Discharge Plan Admission Attending Provider: Javi Pérez Primary Care Provider: Saad Whiting Instructions Print Language: Polish Discharge Orders/Prescriptions Prescriptions: New oxycodone 5 mg Tablet 5 - 10 mg PO Q4H PRN PRN (Reason: Pain Score 4-10) 5 Days Qty: 10 0RF No Action tamsulosin [Flomax] 0.4 mg capsule 0.4 mg PO DAILY omeprazole 20 mg capsule,delayed release(DR/EC) 20 mg PO DAILY meloxicam 15 mg tablet 15 mg PO QDAY atorvastatin 20 mg tablet 20 mg PO DAILY Referrals / Follow Up: Saad Whiting MD [Primary Care Provider, Family Practice] Disposition Disposition (needs filled in before D/C Order can be placed): Home, Self Care
--- NOTE | 2025-05-04 12:20 | PCM.POST.ANE ---
Anesthesia: Postop Eval I Current Vital Signs Temperature: 97.1 F Pulse Rate: 104 Blood Pressure: 160/84 Respiratory Rate: 20 Pulse Ox: 93 Assessment Airway patent: Yes Spontaneous unlabored respirations: Yes nausea: No Vomiting: No Anesthesia Complication: No Fluid Hydration Crystalloid volume administer (ml): 1,000 Total IV fluid infused: 1,000 Progress Note Anesthesia document: Postop Eval 1 completed: Yes
--- NOTE | 2025-05-04 14:26 | POSTOPAN2_ITS ---
Anesthesia Postop Eval I Sum Postop Eval Completion status Anesthesia document: Postop Eval 1 completed: Yes Anesthesia Postop Eval I Summary Anesthesia Postop Eval I Summary: Anesthesia Postop Eval I: Assessment Summary Airway patent Yes 05/04/25 12:20 [employer]ORER.CSIR Spontaneous unlabored Yes 05/04/25 12:20 [employer] AND G[employer]TER LABORER.CSIR respirations Mental status nausea No 05/04/25 12:20 [employer] AND G[employer]TER LABORER.CSIR Vomiting No 05/04/25 12:20 [employer] AND GUTTER LABORER.CSIR Anesthesia Postop Eval I: Fluid Summary Crystalloid volume administer 1,000 05/04/25 12:20 [employer]B AND GUTTER LABORER.CSIR (ml) Colloids volume administered ( ml) Blood Product volume administered (ml) Total IV fluid infused 1,000 05/04/25 12:20 [employer] AND GUTTER LABORER.CSIR Anesthesia Postop Eval I: Summary Notes Anesthesia Complication No 05/04/25 12:20 [employer] AND GUTTER LABORER.CSIR Anesthesia Complication Comment: Post-operative progress note Anesthesia: Postop Eval II Evaluation Mental status: Awake and Calm Pain Level: 1 nausea: No Vomiting: No Complications Anesthesia Complication: No
--- NOTE | 2025-05-04 14:26 | PCM.POSTANE2 ---
Anesthesia Postop Eval I Sum Postop Eval Completion status Anesthesia document: Postop Eval 1 completed: Yes Anesthesia Postop Eval I Summary Anesthesia Postop Eval I Summary: Anesthesia Postop Eval I: Assessment Summary Airway patent Yes 05/04/25 12:20 JUDO INSTRUCTOR.CSIR Spontaneous unlabored Yes 05/04/25 12:20 JUDO INSTRUCTOR.CSIR respirations Mental status nausea No 05/04/25 12:20 JUDO INSTRUCTOR.CSIR Vomiting No 05/04/25 12:20 JUDO INSTRUCTOR.CSIR Anesthesia Postop Eval I: Fluid Summary Crystalloid volume administer 1,000 05/04/25 12:20 JUDO INSTRUCTOR.CSIR (ml) Colloids volume administered ( ml) Blood Product volume administered (ml) Total IV fluid infused 1,000 05/04/25 12:20 JUDO INSTRUCTOR.CSIR Anesthesia Postop Eval I: Summary Notes Anesthesia Complication No 05/04/25 12:20 JUDO INSTRUCTOR.CSIR Anesthesia Complication Comment: Post-operative progress note Anesthesia: Postop Eval II Evaluation Mental status: Awake and Calm Pain Level: 1 nausea: No Vomiting: No Complications Anesthesia Complication: No
== END 2025-05-04 13:47 | disposition home or self-care (01) ==
LOC: SDC 10:30 → AC 10:31
PROVIDERS: PCP Family Medicine; Referring Provider Surgery; Visit Provider Surgery
PROC: (CPT 21933; principal; 2025-05-04 12:00)
DX: D17.1 Benign lipomatous neoplasm of skin and subcutaneous tissue of trunk (principal); Z87.891 Personal history of nicotine dependence; Z79.899 Other long term (current) drug therapy; K21.9 Gastro-esophageal reflux disease without esophagitis
CPT/HCPCS: 21933; 00300; 88304; J2405

== ENCOUNTER → 2025-05-09 | Outpatient (CLI) | payer MEDICARE, SELFPAY ==
[2025-05-09 13:05] LABS: Mucous, Urine 0 SEEN /hpf (<or=2+); Squamous Epithelial Cells - UA 0 SEEN /hpf (0-5)
[2025-05-09 13:43] LABS: Color, Urine Yellow (Yellow); Glucose, Dipstick Normal (Normal); Ketone-Dipstick Negative (Negative); Leukocyte Esterase-Dipstick Negative /ul (Negative); Nitrite-Dipstick Negative (Negative); Occult Blood-Urine 150 /ul (Negative); Protein-Dipstick 15 mg/dl (Negative); Specific Gravity, Urine 1.015 (1.002-1.030); Urine Bilirubin Dipstick Negative (Negative)
[2025-05-09 13:53] LABS: Red Blood Cells-Urine 0-5 SEEN /hpf (0-5)
== END | disposition home or self-care (01) ==
LOC: LABSPEC 12:13
PROVIDERS: PCP Family Medicine; Referring Provider Physician Assistant; Visit Provider Physician Assistant
DX: R33.9 Retention of urine, unspecified (principal)
CPT/HCPCS: 81001

== ENCOUNTER → 2025-07-09 | Outpatient (CLI) | payer MEDICARE, SELFPAY ==
--- OUTSIDE RECORDS SUMMARY | 2025-07-09 10:04 | XMS RPT_ITS | CCD ---
Author Organization [facility] Care Team Providers Care Hall Porter Name Role Phone ROSINA QUACH Attending Unavail able SAAD DONALDSON Primary Care Unavailable Dr. Saad Donaldson Primary Care Provider Dr. Saad Donaldson Referring Provider Dr. Javi Pérez Attending Provider [phone] Dr. Javi Pérez Other Provider Henok FRANCO, Dr. Nash Primary Care Provider Henok FRANCO, Dr. Nash Attending Provider Henok FRANCO, Dr. Nash Referring Provider Henok FRANCO, Dr. Nash Primary Care Provider Henok FRANCO, Dr. Nash Attending Provider Henok FRANCO, Dr. Nash Referring Provider Elisa FRANCO, Dr. Caldwell Attending Provider Henok FRANCO, Dr. Nash Primary Care Physician Henok FRANCO, Dr. Nash Referring Provider Elisa FRANCO, Dr. Caldwell Attending Physician Elisa FRANCO, Dr. Caldwell Referring Provider Elisa FRANCO, Dr. Caldwell Nurse Practitioner Ayala Jasso PA-C Attending Physician Ayala aJsso PA-C Referring Provider Saad Donaldson Referring Unavailable Saad Donaldson Primary Care Unavailable Ayala Obrien Attending Unavailable Saad Donaldson Primary Care Unavailable Javi Pérez Attending Unavailable Calabretta, Javi Referring Unavailable Donaldson, Saad Attending Unavailable Donaldson, Saad Referring Unavailable Donaldson, Saad Primary Care Unavailable Donaldson, Saad Attending Unavailable Donaldson, Saad Referring Unavailable Donaldson, Saad Primary Care Unavailable Donaldson, Saad Primary Care Unavailable Louisa PA, Ayala Attending Unavailable Jasso PA, Ayala Referring Unavailable Donaldson, Saad Attending Unavailable Donaldson, Saad Referring Unavailable Donaldson, Saad Primary Care Unavailable Donaldson, Saad Attending Unavailable Donaldson, Saad Referring Unavailable Donaldson, Saad Primary Care Unavailable Donaldson, Saad Referring Unavailable Donaldson, Saad Primary Care Unavailable Calabretta, Javi Attending Unavailable Calabretta, Javi Consulting Unavailable Donaldson, Saad Primary Care Unavailable Calabrmatthew, Javi Attending Unavailable Elisa, Javi Referring Unavailable Donaldson, Saad Referring Unavailable Donaldson, Saad Primary Care Unavailable Calabretta, Javi Attending Unavailable Donaldson, Saad Referring Unavailable Donaldson, Saad Primary Care Unavailable Calabretta, Javi Attending Unavailable Medications Current Medications Medication Drug Class(es) Dates Sig (Normalized) Sig (Original) atorvastatin 20 mg oral tablet (4 sources) HMG-CoA Reductase Inhibitor Start: 04-25-2025 take 1 tablet by mouth once daily Atorvastatin 20 mg tablet Active 20 mg PO DAILY April 25, 2025 12:00am Complies with drug therapy meloxicam 15 mg oral tablet (5 sources) Nonsteroidal Anti-inflammatory Drug Start: 04-14-2025 take 1 tablet by mouth once daily Meloxicam 15 mg tablet Active 15 mg PO daily April 14, 2025 12:00am Complies with drug therapy omeprazole 20 mg delayed release oral capsule (8 sources) Proton Pump Inhibitor Start: 11-10-2023 take 1 capsule by mouth once daily Omeprazole 20 mg capsule,delayed release(DR/EC) Active 20 mg PO DAILY November 10, 2023 12:00am Complies with drug therapy tamsulosin hydrochloride 0.4 mg oral capsule (8 sources) alpha-Adrenergic Donavon Start: 11-10-2023 take 1 capsule by mouth once daily Tamsulosin (Flomax) 0.4 mg capsule Active 0.4 mg PO DAILY November 10, 2023 12:00am Complies with drug therapy Completed/Discontinued Medications Medication Drug Class(es) Dates Sig (Normalized) Sig (Original) oxyCODONE hydrochloride 5 mg oral tablet (4 sources) Opioid Agonist Start: 05-04-2025 End: 05-12-2025 take 5-10 mg by mouth every four hours as needed for pain Oxycodone 5 mg Tablet Discontinued 5 - 10 mg PO EVERY 4 HOURS NEEDED as needed for Pain Score 4-10 10 5 0 May 04, 2025 May 12, 2025 3:24pm Lipoma of back Benign lipomatous neoplasm of skin and subcutaneous tissue of trunk rosuvastatin calcium 5 mg oral tablet (8 sources) HMG-CoA Reductase Inhibitor Start: 11-10-2023 End: 04-25-2025 take 1 tablet by mouth once daily Rosuvastatin (Crestor) 5 mg tablet Discontinued 5 mg PO DAILY November 10, 2023 12:00am April 25, 2025 11:15am Problems Active Problems Problem Classification Problem Date Documented Da te Episodic/Chronic Diseases of mouth; excluding dental (2 sources) Diseases of lips; Translations: [Diseases of lips] Onset: 01-25-2023 Episodic Disorders of lipid metabolism (1 source) Hyperlipidemia, unspecified; Translations: [Hyperlipidemia, unspecified] Onset: 01-06-2025 Chronic Genitourinary symptoms and ill-defined conditions (8 sources) Retention of urine; Translations: [Retention of urine, unspecified] Onset: 06-01-2025 05-09-2025 Episodic Influenza (12 sources) Influenza-like illness; Translations: [Influenza due to unidentified influenza virus with other respiratory manifestations] 10-29-2019 Episodic Other and unspecified benign neoplasm (11 sources) Lipoma of back; Translations: [Benign lipomatous neoplasm of skin and subcutaneous tissue of trunk] 04-14-2025 Episodic Other and unspecified benign neoplasm (1 source) Benign lipomatous neoplasm of skin and subcutaneous tissue of trunk; Translations: [Benign lipomatous neoplasm of skin and subcutaneous tissue of trunk] Onset: 05-04-2025 Episodic Other gastrointestinal disorders (8 sources) Constipation; Translations: [Constipation, unspecified] 11-10-2023 Episodic Other gastrointestinal disorders (1 source) Constipation, unspecified; Translations: [Constipation, unspecified] 11-10-2023 Episodic Other screening for suspected conditions (not mental disorders or infectious disease) (8 sources) Patient encounter status; Translations: [Encounter for screening for malignant neoplasm of colon] 11-10-2023 Episodic Other skin disorders (2 sources) Disorder of the skin and subcutaneous tissue, unspecified; Translations: [Disorder of the skin and subcutaneous tissue, unspecified] Onset: 01-25-2023 Episodic Past or Other Problems Problem Classification Problem Date Documented Da te Episodic/Chronic Nonspecific chest pain (1 source) Chest pain, unspecified; Translations: [Chest pain, unspecified] Onset: 06-28-2024 Episodic Results Test Name Value Interpretation Reference Range Facility Surgery Visit Reporton 05-18 Surgery Visit Report [facility] [address] [place] [address] OFFICE VISIT Date of Service: 05/18/25 MR#: [id number] Acct: [id number] Name: NARAYAN OHARA Rep #: [id number] : 1960 Provider: NICOLETTE heart Age/Sex: 64/M Location: [facility] Status: Signed Intake Vital Signs 05/04/25 10:54 Height 5 ft 7 in Intake Visit Reasons: S/P EXCISION OF LIPOMA 05-04 Chief Complaint: excision of lipoma from right lower back Baby Formula Mixer Required: No Is patient in pain?: No Allergies No Known Allergies Allergy (Verified 05/18/25 12:43) Medications ???Medication ???Instructions ???Recorded ???Confirmed ???Type omeprazole 20 mg capsule,delayed 20 mg PO DAILY 11/10/23 05/18/25 H istory release tamsulosin 0.4 mg capsule (Flomax) 0.4 mg PO DAILY 11/10/23 5 History meloxicam 15 mg tablet 15 mg PO QDAY 04/14/25 05/18/25 Hi story atorvastatin 20 mg tablet 20 mg PO DAILY 04/25/25 05/18/25 H istory Have you fallen in the past year?: No Subjective Details: Patient is a 64 y/o M I am following s/p excision of subcutaneous mass right lower back by Dr. Pérez on 05/04/25. Patient tolerated the procedure well. Patient has followed up with our office multiple times due to post-procedure urinary retention. Patient has had 2 Rosario catheters placed. He currently has a Rosario catheter in and is scheduled to see Dr. Kwan tomorrow for evaluation. Patient denies any concerns with the right lower back incision. He denies any drainage or erythema. Pathology demonstrated: MICROSCOPIC DIAGNOSIS A. Soft tissue, right lower back, ???lipoma???, excision: - Mature adipose consistent with lipoma. Objective Details: Lower back, right- incision c/d/i. No erythema or infection noted. Coding Level of Care Code Global Post Op Diagnoses Lipoma of back D17.1 Urinary retention R33.9 [facility] Medical History (Updated 05/12/25 @ 14:28 by Candis Fletcher) History of stress test Wears glasses Wears dentures History of IBS History of edema Former smoker Acid reflux Surgical History (Updated 05/18/25 @ 12:44 by Nina Turner) S/P excision of lipoma Hx of colonoscopy History of cardiac catheterization ( 2004) History of wisdom tooth extraction History of cholecystectomy ( 2013) Family History Brother Heart disease CVA (cerebral vascular accident) Social History Smoking Status: Former smoker alcohol intake: former substance use type: does not use Assessment and Plan (No Qualifiers) Assessment and Plan (1) Lipoma of back: Status: Acute Plan: No restrictions at this time Incision has completely healed (2) Urinary retention: Status: Acute Plan: Follow-up with Dr. Kwan tomorrow for possible Rosario removal 05/18/25 1359 Date Ayala Santa Signature: Date (if applicable) CC: Dr. Saad Donaldson MD [facility] Office Visit Reporton 2024 Office Visit Report [facility] [address] [place] [address] OFFICE VISIT Date of Service: 05/12/25 MR#: [id number] Acct: [id number] Patient: NARAYAN OHARA Rep #: [id number] : 1960 Provider: Dr. Javi thacker MD Age/Sex: 64/M Location: [facility] Status: Signed Intake Vital Signs 05/04/25 10:54 Height 5 ft 7 in Intake Visit Reasons: urine retention/rosario Chief Complaint: urinary retention Is patient in pain?: No Allergies No Known Allergies Allergy (Verified 05/12/25 15:24) Medications ???Medication ???Instructions ???Recorded ???Confirmed ???Type omeprazole 20 mg capsule,delayed 20 mg PO DAILY 11/10/23 05/12/25 H istory release tamsulosin 0.4 mg capsule (Flomax) 0.4 mg PO DAILY 11/10/23 5 History meloxicam 15 mg tablet 15 mg PO QDAY 04/14/25 05/12/25 Hi story atorvastatin 20 mg tablet 20 mg PO DAILY 04/25/25 05/12/25 H istory Have you fallen in the past year?: No Nursing Note Patient arrived to have rosario catheter placed. He said he has only voided small amounts since removal of catheter. No c/o pain or fullness. Patient prepped and 16fr 10cc rosario catheter inserted. Clear yellow urine returned. Catheter bag had 600cc of urine in it when procedure completed. Patient tolerated procedure well. Said he had some burning after catheter placed. Told patient to leave rosario in place. To ask Dr Kwan's office when he makes his appointment if he should leave in until seen by Dr Kwan. Education reviewed on how to take care of rosario. Clinical Quality Measures Falls Risk Screening/Assistive Devices Have you fallen in the past year?: No 05/16/25 0738 Date Javi Pérez MD Cosigner Signature: Date (if applicable) CC: Normal [facility] Bilirubin Test strip Ql (U)O rdered By: Ayala Jasso on 05-09-2025 Bilirubin Ql (U) Negative Negative [facility] Ketones Test strip Ql (U)Ord ered By: Ayala Jasso on 05-09-2025 Ketones Ql (U) Negative Negative [facility] Microscopic analysis of urin e for red blood cells (RBC)Ordered By: Ayala Jasso on 05-09-2025 Microscopic analysis of urine for red blood cells (RBC) 0-5 SEEN /hpf 0-5 [facility] Mucus LM Ql (Urine sed)Order ed By: Ayala Jasso on 05-09-2025 Mucus Ql (Urine sed) 0 SEEN /hpf [facility] Nitrite Test strip Ql (U)Ord ered By: Ayala Jasso on 05-09-2025 Nitrite Ql (U) Negative Negative [facility] Office Visit Reporton 2024 Office Visit Report [facility] [address] [place] [address] OFFICE VISIT Date of Service: 05/09/25 MR#: [id number] Acct: [id number] Patient: NARAYAN OHARA Rep #: [id number] : 1960 Provider: Dr. Javi thacker MD Age/Sex: 64/M Location: [facility] Status: Signed Intake Vital Signs 05/04/25 10:54 Height 5 ft 7 in Intake Visit Reasons: Urinary retention Chief Complaint: urinary retention Is patient in pain?: Yes (lower abdomen area) Pain scale (1-10): 9 Allergies No Known Allergies Allergy (Verified 05/09/25 11:50) Medications ???Medication ???Instructions ???Recorded ???Confirmed ???Type omeprazole 20 mg capsule,delayed 20 mg PO DAILY 11/10/23 05/09/25 H istory release tamsulosin 0.4 mg capsule (Flomax) 0.4 mg PO DAILY 11/10/23 5 History meloxicam 15 mg tablet 15 mg PO QDAY 04/14/25 05/09/25 Hi story atorvastatin 20 mg tablet 20 mg PO DAILY 04/25/25 05/09/25 H istory oxycodone 5 mg tablet 5 - 10 mg (1 - 2 x 5 mg) PO Q4H 05/09/25 Rx PRN PRN Pain Score 4-10 5 days #10 tabs Have you fallen in the past year?: No Nursing Note Patient here to be straight cathed since barely voiding since surgery and c/o abdominal pain. Patient prepped with betadine and 16 turkmen catheter inserted until urine flow. Patient encouraged to breath slowly and not to tense up during this time. 1,000 cc of dark rosio urine obtained. Patient said he felt better and hospice liaison applied catheter bag per Dr Pérez's instructions if more than 600 cc to leave catheter in for 2 days. Patient c/o being hot and cool cloth applied to forehead. Patient c/o still having some crampy pain in abdomen and noted to continue to have urine draining into bag and noted it was draining red colored drainage. CHENCHO Cai came into check on patient. Patient informed it may be red colored d/t being cathed and so much urine draining. Urine collected for a UA. Patient and mother educated on how to empty and how to change to leg bag if desired. Also educated to how to remove the catheter on Wed am and to call office by 2pm if he has not voided. Both stated understanding. Assessment and Plan Assessment and Plan (1) Urine retention: Orders: Orders Urinalysis, Complete 05/09/25 R33.9 - Retention of urine, unspecified Clinical Quality Measures Falls Risk Screening/Assistive Devices Have you fallen in the past year?: No 05/12/25 0700 Date Javi Jc Signature: Date (if applicable) CC: Normal [facility] Protein Test strip Ql (U)Ord ered By: Ayala Jasso on 05-09-2025 Protein Ql (U) 15 mg/dl High Negative [facility] Squamous epithelial cells de tection in urine sediment by light microscopyOrdered By: Ayala Jasso on 05-09-2025 Epithelial cells.squamous LM Ql (Urine sed) 0 SEEN /hpf 0-5 [facility] Urinalysis, Completeon 05-09 RBC 0-5 SEEN Normal 0-5 [facility] Comment on above: Order Comment: GIOVANI TER SPECIMEN Performed By: #### L 500.4100, L500.4050 #### [facility] [address] [place], [address] BACTERIA 0 SEEN Normal None Seen [facility] Comment on above: Order Comment: GIOVANI TER SPECIMEN Performed By: #### L 500.4100, L500.4050 #### [facility] [address] [place], [address] EPI,SQUAMOUS 0 SEEN Normal 0-5 [facility] Comment on above: Order Comment: GIOVANI TER SPECIMEN Performed By: #### L 500.4100, L500.4050 #### [facility] [address] [place], [address] Mucus Ql (Urine sed) 0 SEEN Normal [facility] Comment on above: Order Comment: GIOVANI TER SPECIMEN Performed By: #### L 500.4100, L500.4050 #### [facility] [address] [place], [address] WBC 0 SEEN Normal 0-5 [facility] Comment on above: Order Comment: GIOVANI TER SPECIMEN Performed By: #### L 500.4100, L500.4050 #### [facility] [address] [place], [address] Urine clarityOrdered By: Laina Jasso on 05-09-2025 Clarity (U) Clear Clear [facility] Urine color determinationOrd ered By: Ayala Jasso on 05-09-2025 Color (U) Yellow Yellow [facility] Urine glucose detectionOrder ed By: Ayala Jasso on 10-06-2025 Glucose Ql (U) Normal mg/dl Normal [facility] Urine leukocyte esterase det ection by dipstickOrdered By: Ayala Jasso on 05-09-2025 Leukocyte esterase Test strip Ql (U) Negative Negative [facility] Urine pHOrdered By: Ayala angel on 05-09-2025 pH (U) 6.0 [pH] 5.0 - 8.0 [facility] Urine sediment bacteria coun t by microscopy (number/high power field)Ordered By: Ayala Jasso on 05-09-2025 Bacteria LM.HPF (Urine sed) [#/Area] 0 /[HPF] None Seen [facility] Urine specific gravity measu rementOrdered By: Ayala Jasso on 05-09-2025 Specific gravity (U) [Rel density] 1.015 1.002-1.030 [facility] Urine urobilinogen measureme ntOrdered By: Ayala Jasso on 05-09-2025 Urobilinogen Ql (U) 1 mg/dl High Normal [facility] White blood cell countOrdere d By: Ayala Jasso on 05-09-2025 White blood cell count 0 SEEN /hpf 0-5 [facility] Discharge Instructionon Discharge Instruction [facility] Medical Records Department [address] [place] [address] Instructions for Home/Discharge Instructions 05/04/25 1219 MR#: [id number] Acct: [id number] Name: NARAYAN OHARA Rep #: [id number] : 1960 64 From: Javi Pérez MD PCP: Dr. Saad Donaldson MD Status:REG [facility] Discharge Instructions Diet Discharge Diet: Light diet - advance as tolerated Activity Discharge Activity: May Drive (when off narcotics) and May Shower Dressing / Incision Call your doctor if your incision/area has: Continuous Slow Oozing, Sudden Increased Bleeding, Increased Pain/ Swelling, Increased Redness, Foul Smelling Discharge and Swelling at the incision site Call your doctor if you observe: Fever of 101 or Higher Cleanse incision/area with: Soap Water Follow Up Care Please Follow Up With: Javi Pérez MD When: Please call to schedule 2 week follow up appointment. [phone] Test Results: Test results from this visit will be discussed in further detail at your follow-up appointment, if applicable. Discharge Plan Admission Attending Provider: Javi Pérez Primary Care Provider: Saad Donaldson Instructions Print Language: Guamanian Discharge Orders/Prescription s Prescriptions: New oxycodone 5 mg Tablet 5 - 10 mg PO Q4H PRN PRN (Reason: Pain Score 4-10) 5 Days Qty: 10 0RF No Action tamsulosin [Flomax] 0.4 mg capsule 0.4 mg PO DAILY omeprazole 20 mg capsule,delayed release(DR/EC) 20 mg PO DAILY meloxicam 15 mg tablet 15 mg PO QDAY atorvastatin 20 mg tablet 20 mg PO DAILY Referrals / Follow Up: Saad Donaldson MD [Primary Care Provider, Family Practice] Disposition Disposition (needs filled in before D/C Order can be placed): Home, Self Care 05/04/25 1224 Javi Pérez MD CC: Dr. Saad Donaldson MD Signed [facility] MR/POSTOP.[facility] 05-04-2025 MR/POSTOP.[facility] Medical Records Department [address] [place] [address] Anesthesia Postop Eval I 05/04/25 1220 MR#: [id number] Acct: [id number] Name: NARAYAN OHARA Rep #: [id number] : 1960 64 From: Nilda Rdz CRNA PCP: Dr. Saad Donaldson MD Status:REG [facility] Y Race: C Location: [place] [address] Anesthesia: Postop Eval I Current Vital Signs Temperature: 97.1 F Pulse Rate: 104 Blood Pressure: 160/84 Respiratory Rate: 20 Pulse Ox: 93 Assessment Airway patent: Yes Spontaneous unlabored respirations: Yes nausea: No Vomiting: No Anesthesia Complication: No Fluid Hydration Crystalloid volume administer (ml): 1,000 Total IV fluid infused: 1,000 Progress Note Anesthesia document: Postop Eval 1 completed: Yes 05/04/25 1221 Date Nilda Rdz VETERANS' COORDINATOR Cosigner Signature: Date CC: Signed Normal [facility] MR/[id number] 05-04-2025 MR[facility] Medical Records Department [address] [place] [address] Anesthesia Postop Eval II 05/04/25 1426 MR#: [id number] Acct: [id number] Name: NARAYAN OHARA Rep #: [id number] : 1960 64 From: Narayan Johnson MD PCP: Dr. Saad Donaldson MD Status:[facility] Y Race: C Location: [facility] Anesthesia Postop Eval I Sum Postop Eval Completion status Anesthesia document: Postop Eval 1 completed: Yes Anesthesia Postop Eval I Summary Anesthesia Postop Eval I Summary: Anesthesia Postop Eval I: Assessment Summary Airway patent Yes 05/04/25 12:20 VETERANS' COORDINATOR.CSIR Spontaneous unlabored Yes 05/04/25 12:20 VETERANS' COORDINATOR.CSIR respirations Mental status nausea No 05/04/25 12:20 VETERANS' COORDINATOR.CSIR Vomiting No 05/04/25 12:20 VETERANS' COORDINATOR.CSIR Anesthesia Postop Eval I: Fluid Summary Crystalloid volume administer 1,000 05/04/25 12:20 VETERANS' COORDINATOR.CSIR (ml) Colloids volume administered ( ml) Blood Product volume administered (ml) Total IV fluid infused 1,000 05/04/25 12:20 VETERANS' COORDINATOR.CSIR Anesthesia Postop Eval I: Summary Notes Anesthesia Complication No 05/04/25 12:20 VETERANS' COORDINATOR.CSIR Anesthesia Complication Comment: Post-operative progress note Anesthesia: Postop Eval II Evaluation Mental status: Awake and Calm Pain Level: 1 nausea: No Vomiting: No Complications Anesthesia Complication: No 05/04/25 142 Date Narayan Johnson MD Cosigner Signature: Date CC: Signed Normal [facility] Operative Reporton 5 Operative Report [facility] Medical Records Department [address] [place] [address] Operative Report 05/04/25 1216 MR#: [id number] Acct: [id number] Name: NARAYAN OHARA Rep #: [id number] : 1960 64 From: Javi Pérez MD PCP: Dr. Saad Donaldson MD Status:[facility] Location: [place] [address] Operative Report (Standard) Operative Information Date of Procedure: 05/04/25 Pre-Operative Diagnosis: Right lower back lipoma Post-Operative Diagnosis: Right lower back lipoma Surgery/Procedure Performed: Right lower back lipoma excision compliance attorney: Yes Dialysis Social Worker: Amy Ryan Tasks completed by medical administrative assistant: Retracting Type of Anesthesia: General/Regional RN Documented Start/Stop Times: Operation Date: 05/04/25 12:15 Case Time Into Pre-Op 05/04/25 10:37 Out of Pre-Op 05/04/25 11:30 Anesthesia Start 05/04/25 11:34 Into Room 05/04/25 11:34 Procedure Start 05/04/25 11:54 Procedure End 05/04/25 12:07 Anesthesia End 05/04/25 12:15 Out of Room 05/04/25 12:15 Procedure Start Time: 11:54 Procedure Stop Time: 12:15 Select all DRAINS/GRAFTS/IMPLA NTS that apply: None Estimated Blood Loss: 5 Specimen collected: Yes Description of specimen(s) removed: Right lower back lipoma Description of surgery: Patient was brought to the operating room and general anesthesia was induced. The patient was placed in prone jackknife position. The area in the right lower back was ultrasounded and the area was circled. The back was prepped and draped in usual sterile fashion. An incision was marked and made with a scalpel. It was deepened to the subcutaneous tissue. Electrocautery was used to maintain hemostasis. The lipoma was evident and it was dissected free bluntly and with electrocautery until it was removed. The cavity was irrigated and suctioned dry. The skin was then closed with interrupted 3-0 Vicryl sutures and Dermabond. Patient tolerated the procedure well. The specimen was approximately 10 cm in diameter and it was deep Surgical Findings: Right lower back lipoma Complications Complications: No 05/04/25 1218 Cosigner Signature (if applicable): CC: Dr. Javi Pérez MD; Dr. Saad Donaldson MD Signed Normal [facility] Surgery Specimen Level IIIon 05-04-2025 Surgery Specimen Level III Patient Age/Sex Location Account Attending Physician NARAYAN OHARA 64/M [facility] [id number] Dr. Javi Pérez MD Specimen: [id number] Received: 05/04/25 Status: JOHNNY Sruthi Num: [id number] Spec Type: LIPOMA Subm Dr: Dr. Javi Pérez MD HEADER OPERATION: Excision right lower back lipoma PRE-OP DIAGNOSIS: Right lower back lipoma TISSUE SUBMITTED: A- Right lower back lipoma MICROSCOPIC DIAGNOSIS A. Soft tissue, right lower back, lipoma, excision: * Mature adipose consistent with lipoma. MICROSCOPIC DESCRIPTION Slides are reviewed. GROSS DESCRIPTION A. Received in formalin labeled with the patient's name and date of . Designated as right lower back lipoma is a acevedo-yellow, lobulated, shaggy and disrupted soft tissue mass, collectively measuring 7.8 x 6.7 x 2.8 cm in aggregate. Sectioning reveals focally erythematous but otherwise homogenous cut surfaces with areas of threadlike fibrosis. Third Officer sections are submitted in 4 cassettes. IA 05/04/2025PT:07591 Patient Age/Sex Location Account Attending Physician NARAYAN OHARA 64/M [facility] [place] [id number] Dr. Javi Pérez MD Signed (signatur e on file) Dr. Kaity Brasher MD 05/11/25 1458 Normal [facility] Comment on above: Performed By: #### P SUIII #### [facility] Laboratory [address] [place], [address] MR/PATDeepthi 04-25-2025 MR/PAT.[facility] Medical Records Department [address] [place] [address] PAT - Anesthesia 04/25/25 1306 MR#: [id number] Acct: [id number] Name: NARAYAN OHARA Rep #: [id number] : 1960 64 From: Arslan Schafer MD PCP: Dr. Saad Donaldson MD Status:PRE [facility] [place] Y Race: C Location: [facility] [place] Pre-Assessment Diagnosis/Proposed Procedure Planned Operative Procedure(s): (R) Excision,Right lower back Lipoma Anesthesia History Anesthesia History - edge brusher: Anesthesia History - edge brusher Hx Hospitalization No 04/25/25 11:18 Any Problems With Anesthesia No 04/25/25 11:18 Cholinesterase deficiency No 04/25/25 11:18 You/Your Family Experience No 04/25/25 11:18 fever (hyperthermia) with Relationship Recent Exposure to Contagious No 12/01/23 13:08 Disease Does patient have nerve No 04/25/25 11:18 stimulator Patient instructed to have device shut off --Does patient have Pacemaker or ICD? When Was Last Pacemaker Check QUESTION #4 FULL TEXT: You/Your Family Experience fever (hyperthermia) with Anesthesia Last Oral Intake Last Oral intake: Last Oral Intake NPO since Meds taken in AM with sips of water? Meds patient instructed to take am of surgery PONV PONV - edge brusher: PONV - edge brusher Female No 04/25/25 11:18 HX of Motion Sickness No 04/25/25 11:18 HX of N/V After Surgery No 04/25/25 11:18 Non-Smoker Yes 04/25/25 11:18 Duration of Surgery greater No 04/25/25 11:18 than 60 minutes Number of Risk Factors 1 04/25/25 11:18 PONV Score Low Risk 04/25/25 11:18 Height Weight Height Weight: Anesthesia: Height Weight Height 5 ft 7 in 04/14/25 14:13 Respiratory Assessment Respiratory Assessment - edge brusher: Respiratory Tract Infection Hx - edge brusher Hx Respiratory Tract Infection No 04/25/25 11:18 STOP Sleep Apnea STOP Sleep Apnea - edge brusher: STOP Sleep Apnea - edge brusher Hx Hypertension No 04/25/25 11:18 Hx Sleep Apnea No 04/25/25 11:18 CPAP No 04/25/25 11:18 BIPAP Do you snore loudly (louder No 04/25/25 11:18 than talking or can be heard Do you often feel tired/ No 04/25/25 11:18 fatigued/ sleepy during daytime? Has anyone observed you stop No 04/25/25 11:18 breathing during sleep? STOP Results Negative 04/25/25 11:18 QUESTION #5 FULL TEXT : Do you snore loudly (louder than talking or can be heard through closed doors)? 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 Specify any problems Hx of Preganancy in last 3 N/A 04/25/25 11:18 Months Nurse Filling Out Transfusion VCHRISTIN 04/25/25 11:18 Questions: Date: 04/25/25 04/25/25 11:18 Time: 11:19 04/25/25 11:18 Patient unable to answer at this time (ie. confused, unrespo /Reproduct ion History /Reproduct abram History - edge brusher: /Reproduct abram Hx- edge brusher Hx Now No 04/25/25 11:18 Gestational Age (in weeks): EDC: Hx Hx Para Hx Section SAB No 04/25/25 11:18 [facility] Medical History (Updated 04/25/25 @ 11:18 by Anat [place]) History of stress test Wears glasses Wears dentures History of IBS History of edema Former smoker Acid reflux Home Medications ???Medication ???Instructions ???Recorded ???Last Taken ???Type omeprazole 20 mg capsule,delayed 20 mg PO DAILY 11/10/23 11/30/23 H istory release tamsulosin 0.4 mg capsule (Flomax) 0.4 mg PO DAILY 11/10/23 4 History meloxicam 15 mg tablet 15 mg PO QDAY 04/14/25 Unknown His tory atorvastatin 20 mg tablet 20 mg PO DAILY 04/25/25 Unknown Hi story Allergy/AdvReac Type Severity Reaction Status Date / Time No Known Allergies Allergy Verified 04/25/25 11:14 Family History Brother Heart disease CVA (cerebral vascular accident) Surgical History (Updated 04/25/25 @ (more content not included)... Normal [facility] Surgery Visit Reporton 04-14 Surgery Visit Report [facility] [address] [place] [address] OFFICE VISIT Date of Service: 04/14/25 MR#: [id number] Acct: [id number] Name: NARAYAN OHARA Rep #: [id number] : 1960 Provider: Dr. Javi thacker MD Age/Sex: 64/M Location: [facility] Status: Signed Intake Vital Signs 12/01/23 13:08 04/14/25 14:13 Height 5 ft 7 in 5 ft 7 in Weight: 191 lb BMI 29.9 BP 133/81 H Blood Pressure Location Rt brachial Position Sitting Respiration 17 Pulse 68 Pulse Source Monitor Pulse Oximetry (%) 97 Oxygen Delivery Method room air Intake Visit Reasons: LIPOMA LOWER BACK Chief Complaint: lipoma lower back Is patient in pain?: Yes (sciatic nerve pain) Allergies No Known Allergies Allergy (Verified 04/14/25 14:15) Medications ???Medication ???Instructions ???Recorded ???Confirmed ???Type omeprazole 20 mg capsule,delayed 20 mg PO DAILY 11/10/23 04/14/25 H istory release rosuvastatin 5 mg tablet (Crestor) 5 mg PO DAILY 11/10/23 04/14/25 History tamsulosin 0.4 mg capsule (Flomax) 0.4 mg PO DAILY 11/10/23 5 History meloxicam 15 mg tablet 15 mg PO QDAY 04/14/25 04/14/25 Hi story Have you fallen in the past year?: No PFSH Medical History (Updated 04/14/25 @ 14:12 by Candis Fletcher) Wears glasses Wears dentures History of IBS History of edema Former smoker Acid reflux Surgical History History of cardiac catheterization ( 2004) History of wisdom tooth extraction History of cholecystectomy ( 2013) Family History Brother Heart disease CVA (cerebral vascular accident) Social History (Updated 04/14/25 @ 14:12 by Candis Fletcher) Smoking Status: Former smoker alcohol intake: former substance use type: does not use HPI HPI HPI: Patient is a 64-year-old male who is here for a lipoma in his right lower back. 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 He says it is very tender especially when bouncing. ROS General General: No weight change, appetite, fatigue, colon cancer, breast cancer or weakness HEENT HEENT: No difficulty swallowing, eye injury, eye surgery, swollen glands or hoarseness Endo Endocrine: No thyroid disease, diabetes mellitus, thyroid cancer, Hair loss, heat intolerance or cold intolerance Skin Skin: No rash or changing moles Musc Musculoskeletal: No back problems, arthritis, rheumatoid arthritis, gout or joint pain Cardio Cardiovascular: No murmur, pacemaker, heart disease, atrial fibrillation, high blood pressure, heart attack, heart stent, palpitations, shortness of breath with exertion or chest pain Psych Psychiatric: No depression, anxiety or hearing voices Resp Respiratory: No shortness of breath, No sleep apnea, No cough, No COPD, No asthma, No emphysema and No wheezing Gastro Gastrointestinal: No abdominal pain, No nausea or vomiting, Yes diarrhea, Yes constipation, No blood in stool, Yes acid reflux, No hemorrhoids, No ulcers, No gallbladder problem and No black,tarry stools Dago Hematologic: No blood thinners, No blood disorders, No bleeding, No anemia and No blood clots Neuro Neurologic: No system reviewed and no additional complaints, except as documented, No as per HPI, No abnormal gait, No abnormal hearing, No abnormal movements, No abnormal speech, No behavioral changes, No burning sensations, No confusion, No convulsions, No disequilibrium, No dizziness, No localized weakness, No frequent falls, No headache(s), No lack of coordination, No loss of vision, No memory loss, No numbness, No other visual disturbances, No radicular pain, No restless legs, No sensory deficit, No syncope, No tingling, No tremor(s), No weakness and No other Exam Const General: cooperative Orientation: alert and oriented x3 HENMT Head: normal to inspection Neck Neck: normal visual inspection and full ROM Chest Chest palpation inspection: normal inspection of the chest Resp Effort Inspection: normal respiratory effort Auscultation: clear to auscultation bilaterally Cardio Rate: regular rate Rhythm: regular rhythm GI Inspection: non-distended Palpation: soft and nontender Musc Other: Soft mobile mass in the right lower back just above the belt line Skin General: no rashes or lesions noted Neuro General: patient alert and patient oriented x3 Extrem General: full ROM Psych Appearance: grossly normal Mental Status: mental status grossly normal Assessment and Plan Assessment and Plan (1) Lipoma of back: Status: Acute Plan: The patient has what feels to be a lipoma in the lower right back. He would like this removed as hi (more content not included)... Normal [facility] Anion gap in Serum or Plasma Ordered By: Saad Donaldson on 01-01-2025 Anion gap [Moles/Vol] 11 mmol/L 5-15 [facility] BUN/creatinine ratioOrdered By: Saad Donaldson on 01-01-2025 Urea nitrogen/Creatinine [Mass ratio] 12.0 mg/mg 10-20 [facility] Bilirubin, totalOrdered By: Saad Donaldson on 01-01-2025 Bilirubin [Mass/Vol] 0.67 mg/dL 0.00-1.30 [facility] Calculated very low density lipoprotein (VLDL) cholesterol measurementOrdered By: Saad Donaldson on 01-01-2025 Calculated very low density lipoprotein (VLDL) cholesterol measurement 34 mg/dL 5-40 [facility] Carbon dioxide, total [Moles /volume] in Central venous bloodOrdered By: Saad Donaldson on 01-01-2025 CO2 [Moles/Vol] 23.0 mmol/L 21.0-32.0 [facility] Chloride assayOrdered By: Chencho Donaldson on 01-01-2025 Chloride [Moles/Vol] 103 mmol/L 98-108 [facility] Comprehensive Metabolic Prof ilon 01-01-2025 Albumin [Mass/Vol] 4.3 g/dL Normal 3.4-4.8 [facility] Comment on above: Performed By: #### L 501.9940, L500.4050, L500.4100 #### [facility] [address] [place], [address] Albumin/Globulin [Mass ratio] 1.4 {ratio} Normal 0.9-2.4 [facility] Comment on above: Performed By: #### L 501.9940, L500.4050, L500.4100 #### [facility] [address] [place], [address] ALK PHOS 78 U/L Normal 40-129 [facility] Comment on above: Performed By: #### L [id number], L500.4050, L500.4100 #### [facility] [address] [place], [address] ALT [Catalytic activity/Vol] 40 U/L Normal <=46 [facility] Comment on above: Performed By: #### L [id number], L500.4050, L500.4100 #### [facility] [address] [place], [address] AST [Catalytic activity/Vol] 32 U/L Normal <=37 [facility] Comment on above: Performed By: #### L 501.9940, L500.4050, L500.4100 #### [facility] [address] [place], [address] Bilirubin [Mass/Vol] 0.67 mg/dL Normal 0.00-1.30 [facility] Comment on above: Performed By: #### L 501.9940, L500.4050, L500.4100 #### [facility] [address] [place], [address] BUN/CRE 12.0 RATIO Normal 10-20 [facility] Comment on above: Performed By: #### L [id number], [id number], L500.4100 #### [facility] [address] [place], [address] Calcium [Mass/Vol] 9.1 mg/dL Normal 7.6-11.0 [facility] Comment on above: Performed By: #### L [id number], L500.4050, L500.4100 #### [facility] [address] [place], [address] Chloride [Moles/Vol] 103 mmol/L Normal 98-108 [facility] Comment on above: Performed By: #### L [id number], L500.4050, L500.4100 #### [facility] [address] [place], [address] CO2 [Moles/Vol] 23.0 mmol/L Normal 21.0-32.0 [facility] Comment on above: Performed By: #### L 501.9940, L500.4050, L500.4100 #### [facility] [address] [place], [address] Creatinine [Mass/Vol] 1.22 mg/dL High 0.70-1.20 [facility] Comment on above: Performed By: #### L 501.9940, L500.4050, L500.4100 #### [facility] [address] [place], [address] GAP 11 Normal 5-15 [facility] Comment on above: Performed By: #### L [id number], L500.4050, L500.4100 #### [facility] [address] [place], [address] GFR/1.73 sq M.predicted among non-blacks MDRD (S/P/Bld) [Vol rate/Area] 66 mL/min/{1.73_m2} Normal >60 [facility] Comment on above: Result Comment: mL/m in/1.73m2 CKD-EPI Creatinine Equation (2020) Performed By: #### L 501.9940, L500.4050, L500.4100 #### [facility] [address] [place], [address] Globulin (S) [Mass/Vol] 3.1 g/dL Normal 2.2-4.2 [facility] Comment on above: Performed By: #### L 501.9940, L500.4050, L500.4100 #### [facility] [address] [place], [address] Glucose [Mass/Vol] 114 mg/dL High 70-99 [facility] Comment on above: Performed By: #### L 501.9940, L500.4050, L500.4100 #### [facility] [address] [place], [address] Potassium [Moles/Vol] 4.0 mmol/L Normal 3.3-5.1 [facility] Comment on above: Performed By: #### L 501.9940, L500.4050, L500.4100 #### [facility] [address] [place], [address] Sodium [Moles/Vol] 137 mmol/L Normal 133-145 [facility] Comment on above: Performed By: #### L 501.9940, L500.4050, L500.4100 #### [facility] [address] [place], [address] T PROT 7.4 g/dL Normal 5.9-8.4 [facility] Comment on above: Performed By: #### L 501.9940, L500.4050, L500.4100 #### [facility] [address] [place], [address] Urea nitrogen [Mass/Vol] 15 mg/dL Normal 4-19 [facility] Comment on above: Performed By: #### L 501.9940, L500.4050, L500.4100 #### [facility] [address] [place], [address] Glomerular filtration rate ( GFR) estimation/1.73 sq m using serum, plasma, or whole bOrdered By: Saad Donaldson on 01-01-2025 GFR/1.73 sq M.predicted among non-blacks MDRD (S/P/Bld) [Vol rate/Area] 66 mL/min/{1.73_m2} >60 [facility] Comment on above: mL/min/1.73m2 CKD-EP I Creatinine Equation (2020) LDL calc ser/plasOrdered By: Saad Donaldson on 01-01-2025 Cholesterol in LDL [Mass/Vol] 83 mg/dL [facility] Comment on above: Vbjkexxnhv=639-645 m g/dL & Higher Mycw=409 mg/dL or greater Laboratory - Chemistry and C hemistry - challengeOrdered By: Saad Donaldson on 01-01-2025 AST [Catalytic activity/Vol] 32 U/L <38 [facility] Lipid Profileon 01-01-2025 CHOL:HDL 3.79 Normal [facility] Comment on above: Performed By: #### L 501.9940, L500.4050, L500.4100 #### [facility] [address] [place], [address] Cholesterol [Mass/Vol] 158 mg/dL Normal <=200 [facility] Comment on above: Result Comment: Chol esterol level, Desirable <200 mg/dL Borderline high cholesterol 200-239 mg/dL High cholesterol >=240 mg/dL Recommendations of the NCEP Adult Treatment Panel for the following risk-cutoff thresholds for the [place] population. Performed By: #### L 501.9940, L500.4050, L500.4100 #### [facility] [address] [place], [address] Cholesterol in HDL [Mass/Vol] 42 mg/dL Normal [facility] Comment on above: Result Comment: Larissa onal Cholesterol Education Program (NCEP) guidelines: <40 mg/dL: Low HDL-cholesterol (major risk factor for CHD) >= 60 mg/dL: High HDL-cholesterol (negative risk factor for CHD) HDL-cholesterol is affected by a number of factors, e.g. smoking, exercise, hormones, sex and age. Performed By: #### L 501.9940, L500.4050, L500.4100 #### [facility] [address] [place], [address] Cholesterol in LDL [Mass/Vol] 83 mg/dL Normal [facility] Comment on above: Result Comment: Bord ipqusq=874-617 mg/dL Higher Dltm=953 mg/dL or greater Performed By: #### L 501.9940, L500.4050, L500.4100 #### [facility] [address] [place], [address] Cholesterol in VLDL [Mass/Vol] 34 mg/dL Normal 5-40 [facility] Comment on above: Performed By: #### L 501.9940, L500.4050, L500.4100 #### [facility] [address] [place], [address] Triglyceride [Mass/Vol] 169 mg/dL Normal [facility] Comment on above: Result Comment: The drugs N-Acetylcysteine and Metamizole may falsely depress this assay. Normal range: <150 mg/dL Borderline High: 150-199 mg/dL High: 200-499 mg/dL Very High: >500 mg/dL Performed By: #### L 501.9940, L500.4050, L500.4100 #### [facility] [address] [place], [address] PSA,Total- Diagnosticon 12-04 PSA, DIAGNOSTIC 4.45 ng/mL High 0.00-4.00 [facility] Comment on above: Result Comment: This test was performed using the [employer] tPSA method. Measured values of a patient??sample can vary depending on the testing procedure used. PSA values determined on patient samples by different testing procedures cannot be used interchangeably. If there is a change in PSA assays while monitoring therapy, sequential testing should be performed to confirm baseline values. Performed By: #### L 501.9940, L500.4050, L500.4100 #### [facility] [address] [place], [address] Potassium measurement (mass/ volume)Ordered By: Saad Donaldson on 01-01-2025 Potassium (Unsp spec) [Mass/Vol] 4.0 mmol/L 3.3-5.1 [facility] Screening total cholesterol/ high density lipoprotein (HDL) cholesterol ratioOrdered By: Saad Donaldson on 01-01-2025 Cholesterol.total/Cholest celso in HDL [Mass ratio] 3.79 {ratio} [facility] Serum creatinine measurement (mass/volume)Ordered By: Saad Donaldson on 01-01-2025 Creatinine [Mass/Vol] 1.22 mg/dL High 0.70-1.20 [facility] Serum globulin measurementOr dered By: Saad Donaldson on 01-01-2025 Globulin (S) [Mass/Vol] 3.1 g/dL 2.2-4.2 [facility] Serum glucose measurement (m ass/volume)Ordered By: Saad Donaldson on 01-01-2025 Glucose [Mass/Vol] 114 mg/dL High 70-99 [facility] Serum or plasma alanine burciaga otransferase (ALT) measurementOrdered By: Saad Donaldson on 01-01-2025 ALT [Catalytic activity/Vol] 40 U/L <47 [facility] Serum or plasma albumin arianna urement (mass/volume)Ordered By: Saad Donaldson on 01-01-2025 Albumin [Mass/Vol] 4.3 g/dL 3.4-4.8 [facility] Serum or plasma albumin/glob ulin mass ratioOrdered By: Saad Donaldson on 01-01-2025 Albumin/Globulin [Mass ratio] 1.4 {ratio} 0.9-2.4 [facility] Serum or plasma alkaline angelica sphatase measurementOrdered By: Saad Donaldson on 01-01-2025 ALP [Catalytic activity/Vol] 78 U/L 40-129 [facility] Serum or plasma calcium arianna urement (mass/volume)Ordered By: Saad Donaldson on 01-01-2025 Calcium [Mass/Vol] 9.1 mg/dL 7.6-11.0 [facility] Serum or plasma cholesterol in HDL measurement (mass/volume)Ordered By: Saad Donaldson on 01-01-2025 Cholesterol in HDL [Mass/Vol] 42 mg/dL >40 [facility] Comment on above: National Cholesterol Education Program (NCEP) guidelines:<40 mg/dL: Low HDL-cholesterol (major risk factor for CHD)>= 60 mg/dL: High HDL-cholesterol (negative risk factor for CHD)HDL-cholesterol is affected by a number of factors, e.g. smoking, exercise, hormones, sex and age. Serum or plasma cholesterol measurement (mass/volume)Ordered By: Saad Donaldson on 01-01-2025 Cholesterol [Mass/Vol] 158 mg/dL <201 [facility] Comment on above: Cholesterol level, D esirable <200 mg/dLBorderline high cholesterol 200-239 mg/dLHigh cholesterol >=240 mg/dLRecommendations of the NCEP Adult Treatment Panel for the following risk-cutoff thresholds for the [place] population. Serum or plasma urea nitroge n measurement (mass/volume)Ordered By: Saad Donaldson on 01-01-2025 Urea nitrogen [Mass/Vol] 15 mg/dL 4-19 [facility] Sodium levelOrdered By: Saad Donaldson on 01-01-2025 Sodium [Moles/Vol] 137 mmol/L 133-145 [facility] Total proteinOrdered By: Rebecca Donaldson on 01-01-2025 Protein [Mass/Vol] 7.4 g/dL 5.9-8.4 [facility] Triglycerides measurementOrd ered By: Saad Donaldson on 01-01-2025 Triglyceride [Mass/Vol] 169 mg/dL <199 [facility] Comment on above: The drugs N-Acetylcy steine and Metamizole may falsely depress this assay. Normal range: <150 mg/dLBorderline High: 150-199 mg/dLHigh: 200-499 mg/dLVery High: >500 mg/dL Anion gap in Serum or Plasma Ordered By: Saad Donaldson on 10-30-2024 Anion gap [Moles/Vol] 12 mmol/L 5-15 [facility] BUN/creatinine ratioOrdered By: Saad Donaldson on 10-30-2024 Urea nitrogen/Creatinine [Mass ratio] 11.8 mg/mg 10-20 [facility] Bilirubin, totalOrdered By: Saad Donaldson on 10-30-2024 Bilirubin [Mass/Vol] 1.10 mg/dL 0.00-1.30 [facility] Calculated very low density lipoprotein (VLDL) cholesterol measurementOrdered By: Saad Donaldson on 10-30-2024 Calculated very low density lipoprotein (VLDL) cholesterol measurement 38 mg/dL 5-40 [facility] VLDL Cholesterol 38 mg/dL 5-40 [facility] Carbon dioxide, total [Moles /volume] in Central venous bloodOrdered By: Saad Donaldson on 10-30-2024 CO2 [Moles/Vol] 23.4 mmol/L 21.0-32.0 [facility] Chloride assayOrdered By: Chencho Donaldson on 10-30-2024 Chloride [Moles/Vol] 102 mmol/L 98-108 [facility] Comprehensive Metabolic Prof ilon 10-30-2024 Albumin [Mass/Vol] 4.4 g/dL Normal 3.4-4.8 [facility] Comment on above: Performed By: #### L 500.4100, L500.4050 #### [facility] [address] [place], [address] Albumin/Globulin [Mass ratio] 1.3 {ratio} Normal 0.9-2.4 [facility] Comment on above: Performed By: #### L 500.4100, L500.4050 #### [facility] [address] [place], [address] ALK PHOS 70 U/L Normal 40-129 [facility] Comment on above: Performed By: #### L 500.4100, L500.4050 #### [facility] [address] [place], [address] ALT [Catalytic activity/Vol] 51 U/L High <=46 [facility] Comment on above: Performed By: #### L 500.4100, L500.4050 #### [facility] [address] [place], [address] AST [Catalytic activity/Vol] 33 U/L Normal <=37 [facility] Comment on above: Performed By: #### L 500.4100, L500.4050 #### [facility] [address] [place], [address] Bilirubin [Mass/Vol] 1.10 mg/dL Normal 0.00-1.30 [facility] Comment on above: Performed By: #### L 500.4100, L500.4050 #### [facility] [address] [place], [address] BUN/CRE 11.8 RATIO Normal 10-20 [facility] Comment on above: Performed By: #### L 500.4100, L500.4050 #### [facility] [address] [place], [address] Calcium [Mass/Vol] 9.5 mg/dL Normal 7.6-11.0 [facility] Comment on above: Performed By: #### L 500.4100, L500.4050 #### [facility] [address] [place], [address] Chloride [Moles/Vol] 102 mmol/L Normal 98-108 [facility] Comment on above: Performed By: #### L 500.4100, L500.4050 #### [facility] [address] [place], [address] CO2 [Moles/Vol] 23.4 mmol/L Normal 21.0-32.0 [facility] Comment on above: Performed By: #### L 500.4100, L500.4050 #### [facility] [address] [place], [address] Creatinine [Mass/Vol] 1.37 mg/dL High 0.70-1.20 [facility] Comment on above: Performed By: #### L 500.4100, L500.4050 #### [facility] [address] [place], [address] GAP 12 Normal 5-15 [facility] Comment on above: Performed By: #### L 500.4100, L500.4050 #### [facility] [address] [place], [address] GFR/1.73 sq M.predicted among non-blacks MDRD (S/P/Bld) [Vol rate/Area] 57 mL/min/{1.73_m2} Low >60 [facility] Comment on above: Result Comment: mL/m in/1.73m2 CKD-EPI Creatinine Equation (2020) Performed By: #### L 500.4100, L500.4050 #### [facility] [address] [place], [address] Globulin (S) [Mass/Vol] 3.3 g/dL Normal 2.2-4.2 [facility] Comment on above: Performed By: #### L 500.4100, L500.4050 #### [facility] [address] [place], [address] Glucose [Mass/Vol] 104 mg/dL High 70-99 [facility] Comment on above: Performed By: #### L 500.4100, L500.4050 #### [facility] [address] [place], [address] Potassium [Moles/Vol] 4.6 mmol/L Normal 3.3-5.1 [facility] Comment on above: Performed By: #### L 500.4100, L500.4050 #### [facility] [address] [place], [address] Sodium [Moles/Vol] 138 mmol/L Normal 133-145 [facility] Comment on above: Performed By: #### L 500.4100, L500.4050 #### [facility] [address] [place], [address] T PROT 7.6 g/dL Normal 5.9-8.4 [facility] Comment on above: Performed By: #### L 500.4100, L500.4050 #### [facility] [address] [place], [address] Urea nitrogen [Mass/Vol] 16 mg/dL Normal 4-19 [facility] Comment on above: Performed By: #### L 500.4100, L500.4050 #### [facility] [address] [place], [address] GFR/1.73 sq M.predicted jenifer g non-blacks MDRD (S/P/Bld) [Vol rate/Area]Ordered By: Saad Donaldson on 10-30-2024 Estimated GFR (MDRD) Non-Af Amer 57 Low >60 [facility] Comment on above: mL/min/1.73m2 CKD-EP I Creatinine Equation (2020) Glomerular filtration rate ( GFR) estimation/1.73 sq m using serum, plasma, or whole bOrdered By: Saad Donaldson on 10-30-2024 GFR/1.73 sq M.predicted among non-blacks MDRD (S/P/Bld) [Vol rate/Area] 57 mL/min/{1.73_m2} Low >60 [facility] Comment on above: mL/min/1.73m2 CKD-EP I Creatinine Equation (2020) LDL calc ser/plasOrdered By: Saad Donaldson on 10-30-2024 Cholesterol in LDL [Mass/Vol] 169 mg/dL [facility] Comment on above: Delnhxwrpn=953-814 m g/dL & Higher Msdk=991 mg/dL or greater LDL Cholesterol, Calculated 169 mg/dL [facility] Comment on above: Svjjxtjckc=241-443 m g/dL & Higher Hcud=245 mg/dL or greater Laboratory - Chemistry and C hemistry - challengeOrdered By: Saad Donaldson on 10-30-2024 AST [Catalytic activity/Vol] 33 U/L <38 [facility] Lipid Profileon 10-30-2024 CHOL:HDL 5.54 Normal [facility] Comment on above: Performed By: #### L 500.4100, L500.4050 #### [facility] [address] [place], [place], [address] Cholesterol [Mass/Vol] 253 mg/dL High <=200 [facility] Comment on above: Result Comment: Chol esterol level, Desirable <200 mg/dL Borderline high cholesterol 200-239 mg/dL High cholesterol >=240 mg/dL Recommendations of the NCEP Adult Treatment Panel for the following risk-cutoff thresholds for the [place] population. Performed By: #### L 500.4100, L500.4050 #### [facility] [address] [place], [address] Cholesterol in HDL [Mass/Vol] 46 mg/dL Normal [facility] Comment on above: Result Comment: Larissa onal Cholesterol Education Program (NCEP) guidelines: <40 mg/dL: Low HDL-cholesterol (major risk factor for CHD) >= 60 mg/dL: High HDL-cholesterol (negative risk factor for CHD) HDL-cholesterol is affected by a number of factors, e.g. smoking, exercise, hormones, sex and age. Performed By: #### L 500.4100, L500.4050 #### [facility] [address] [place], [address] Cholesterol in LDL [Mass/Vol] 169 mg/dL Normal [facility] Comment on above: Result Comment: Bord sdtwym=878-971 mg/dL Higher Mmqu=191 mg/dL or greater Performed By: #### L 500.4100, L500.4050 #### [facility] [address] [place], [address] Cholesterol in VLDL [Mass/Vol] 38 mg/dL Normal 5-40 [facility] Comment on above: Performed By: #### L 500.4100, L500.4050 #### [facility] [address] [place], [address] Triglyceride [Mass/Vol] 191 mg/dL Normal [facility] Comment on above: Result Comment: The drugs N-Acetylcysteine and Metamizole may falsely depress this assay. Normal range: <150 mg/dL Borderline High: 150-199 mg/dL High: 200-499 mg/dL Very High: >500 mg/dL Performed By: #### L 500.4100, L500.4050 #### [facility] [address] [place], [address] Potassium (Unsp spec) [Mass/ Vol]Ordered By: Saad Donaldson on 10-30-2024 Potassium [Moles/Vol] 4.6 mmol/L 3.3-5.1 [facility] Potassium measurement (mass/ volume)Ordered By: Saad Donaldson on 10-30-2024 Potassium (Unsp spec) [Mass/Vol] 4.6 mmol/L 3.3-5.1 [facility] Screening total cholesterol/ high density lipoprotein (HDL) cholesterol ratioOrdered By: Saad Donaldson on 10-30-2024 Cholesterol.total/Cholest celso in HDL [Mass ratio] 5.54 {ratio} [facility] Serum creatinine measurement (mass/volume)Ordered By: Saad Donaldson on 10-30-2024 Creatinine [Mass/Vol] 1.37 mg/dL High 0.70-1.20 [facility] Serum globulin measurementOr dered By: Saad Donaldson on 10-30-2024 Globulin (S) [Mass/Vol] 3.3 g/dL 2.2-4.2 [facility] Serum glucose measurement (m ass/volume)Ordered By: Saad Donaldson on 10-30-2024 Glucose [Mass/Vol] 104 mg/dL High 70-99 [facility] Serum or plasma alanine burciaga otransferase (ALT) measurementOrdered By: Saad Donaldson on 10-30-2024 ALT [Catalytic activity/Vol] 51 U/L High <47 [facility] Serum or plasma albumin arianna urement (mass/volume)Ordered By: Saad Donaldson on 10-30-2024 Albumin [Mass/Vol] 4.4 g/dL 3.4-4.8 [facility] Serum or plasma albumin/glob ulin mass ratioOrdered By: Saad Donaldson on 10-30-2024 Albumin/Globulin [Mass ratio] 1.3 {ratio} 0.9-2.4 [facility] Serum or plasma alkaline angelica sphatase measurementOrdered By: Saad Donaldson on 10-30-2024 ALP [Catalytic activity/Vol] 70 U/L 40-129 [facility] Serum or plasma calcium arianna urement (mass/volume)Ordered By: Saad Donaldson on 10-30-2024 Calcium [Mass/Vol] 9.5 mg/dL 7.6-11.0 [facility] Serum or plasma cholesterol in HDL measurement (mass/volume)Ordered By: Saad Donaldson on 10-30-2024 Cholesterol in HDL [Mass/Vol] 46 mg/dL >40 [facility] Comment on above: National Cholesterol Education Program (NCEP) guidelines:<40 mg/dL: Low HDL-cholesterol (major risk factor for CHD)>= 60 mg/dL: High HDL-cholesterol (negative risk factor for CHD)HDL-cholesterol is affected by a number of factors, e.g. smoking, exercise, hormones, sex and age. Serum or plasma cholesterol measurement (mass/volume)Ordered By: Saad Donaldson on 10-30-2024 Cholesterol [Mass/Vol] 253 mg/dL High <201 [facility] Comment on above: Cholesterol level, D esirable <200 mg/dLBorderline high cholesterol 200-239 mg/dLHigh cholesterol >=240 mg/dLRecommendations of the NCEP Adult Treatment Panel for the following risk-cutoff thresholds for the [place] population. Serum or plasma urea nitroge n measurement (mass/volume)Ordered By: Saad Donaldson on 10-30-2024 Urea nitrogen [Mass/Vol] 16 mg/dL 4-19 [facility] Sodium levelOrdered By: Saad Donaldson on 10-30-2024 Sodium [Moles/Vol] 138 mmol/L 133-145 [facility] Total proteinOrdered By: Rebecca Donaldson on 10-30-2024 Protein [Mass/Vol] 7.6 g/dL 5.9-8.4 [facility] Triglycerides measurementOrd ered By: Saad Donaldson on 10-30-2024 Triglyceride [Mass/Vol] 191 mg/dL <199 [facility] Comment on above: The drugs N-Acetylcy steine and Metamizole may falsely depress this assay. Normal range: <150 mg/dLBorderline High: 150-199 mg/dLHigh: 200-499 mg/dLVery High: >500 mg/dL Comprehensive Metabolic Prof ilon 06-03-2024 Albumin [Mass/Vol] 3.9 g/dL Normal 3.2-5.0 [facility] Comment on above: Performed By: #### L 500.4054, L500.4100 #### [facility] [place], [address] Albumin/Globulin [Mass ratio] 1.1 {ratio} Normal 0.9-2.4 [facility] Comment on above: Performed By: #### L 500.4050, L500.4100 #### [facility] [address] [place], [address] ALK P 66 U/L Normal 45-117 [facility] Comment on above: Performed By: #### L 500.4050, L500.4100 #### [facility] [address] [place], [address] ALT [Catalytic activity/Vol] 51 U/L Normal 16-61 [facility] Comment on above: Performed By: #### L 500.4050, L500.4100 #### [facility] [address] [place], [address] AST [Catalytic activity/Vol] 38 U/L High 15-37 [facility] Comment on above: Performed By: #### L 500.4050, L500.4100 #### [facility] [address] [place], [address] Bilirubin [Mass/Vol] 1.30 mg/dL High 0.20-1.00 [facility] Comment on above: Result Comment: For patients on eltrombopag therapy, use of Dimension [place] TBIL is not recommended. Performed By: #### L 500.4050, L500.4100 #### [facility] [address] [place], [address] BUN/CRE 18.7 RATIO Normal 10-20 [facility] Comment on above: Performed By: #### L 500.4050, L500.4100 #### [facility] [address] [place], [address] CA,Total 9.1 mg/dL Normal 8.5-10.1 [facility] Comment on above: Performed By: #### L 500.4050, L500.4100 #### [facility] [address] [place], [address] Chloride [Moles/Vol] 106 mmol/L Normal 98-107 [facility] Comment on above: Performed By: #### L 500.4050, L500.4100 #### [facility] [address] [place], [address] CO2 [Moles/Vol] 28.0 mmol/L Normal 21.0-32.0 [facility] Comment on above: Performed By: #### L 500.4050, L500.4100 #### [facility] [address] [place], [address] Creatinine [Mass/Vol] 1.34 mg/dL High 0.70-1.30 [facility] Comment on above: Result Comment: The validity of the calculated GFR GFRAA in patients over 70 years has not been determined. Clinical correlation is essential. Performed By: #### L 500.4050, L500.4100 #### [facility] [address] [place], [address] EST GFR - AA 69 mL/min Normal >60 [facility] Comment on above: Result Comment: Afri can [place] GFR Calc Performed By: #### L 500.4050, L500.4100 #### [facility] [address] [place], [address] GAP 5 Normal 5-15 [facility] Comment on above: Performed By: #### L 500.4050, L500.4100 #### [facility] [address] [place], [address] GFR/1.73 sq M.predicted among non-blacks MDRD (S/P/Bld) [Vol rate/Area] 57 mL/min/{1.73_m2} Low >60 [facility] Comment on above: Result Comment: Non- GFR Calc Performed By: #### L 500.4050, L500.4100 #### [facility] [address] [place], [address] Globulin (S) [Mass/Vol] 3.7 g/dL Normal 2.2-4.2 [facility] Comment on above: Performed By: #### L 500.4050, L500.4100 #### [facility] [address] [place], [address] Glucose [Mass/Vol] 94 mg/dL Normal 74-106 [facility] Comment on above: Performed By: #### L 500.4050, L500.4100 #### [facility] [address] [place], [address] Potassium [Moles/Vol] 4.3 mmol/L Normal 3.5-5.1 [facility] Comment on above: Performed By: #### L 500.4050, L500.4100 #### [facility] [address] [place], [address] Sodium [Moles/Vol] 139 mmol/L Normal 136-145 [facility] Comment on above: Performed By: #### L 500.4050, L500.4100 #### [facility] [address] [place], [address] T PROT 7.6 g/dL Normal 6.4-8.2 [facility] Comment on above: Performed By: #### L 500.4050, L500.4100 #### [facility] [address] [place], [address] Urea nitrogen [Mass/Vol] 25 mg/dL High 7-18 [facility] Comment on above: Performed By: #### L 500.4050, L500.4100 #### [facility] [address] [place], [address] Lipid Profileon 06-03-2024 Cholesterol [Mass/Vol] 109 mg/dL Normal 200 [facility] Comment on above: Result Comment: <200 mg/dL Desirable 200-240 mg/dL Borderline >240 mg/dL High Risk Performed By: #### L 500.4050, L500.4100 #### [facility] [address] [place], [address] Cholesterol in HDL [Mass/Vol] 31 mg/dL Low [facility] Comment on above: Result Comment: The drugs N-Acetylcysteine and Metamizole may falsely depress this assay. Reference Range HDL <40 mg/dL Low HDL Cholesterol HDL >or= 60 mg/dL High HDL Cholesterol Performed By: #### L 500.4050, L500.4100 #### [facility] [address] [place], [address] Cholesterol in LDL [Mass/Vol] 56 mg/dL Normal 0-130 [facility] Comment on above: Performed By: #### L 500.4050, L500.4100 #### [facility] [address] [place], [address] Cholesterol in VLDL [Mass/Vol] 22 mg/dL Normal 5-40 [facility] Comment on above: Performed By: #### L 500.4050, L500.4100 #### [facility] [address] [place], [address] Triglyceride [Mass/Vol] 111 mg/dL Normal [facility] Comment on above: Result Comment: The drugs N-Acetylcysteine and Metamizole may falsely depress this assay. Serum Triglycerides Reference Interval Normal <150 mg/dL Borderline high 150 - 199 mg/dL High 200 - 499 mg/dL Very High > or = 500 mg/dL Performed By: #### L 500.4050, L500.4100 #### [facility] [address] [place], [address] Basophil percentageOrdered B y: Saad Donaldson on 10-11-2023 Chloride [Moles/Vol] 108 mmol/L 98-107 [facility] Glucose [Mass/Vol] 109 mg/dL 74-106 [facility] Comment on above: Fasting Glucose resu lt from 100 to 125 mg/dL suggests IMPAIRED HOMEOSTASIS per A.D.A. criteria. Potassium [Moles/Vol] 4.0 mmol/L 3.5-5.1 [facility] Sodium [Moles/Vol] 140 mmol/L 136-145 [facility] - Chemistry and C hemistry - challengeOrdered By: Saad Donaldson on 10-11-2023 CO2 [Moles/Vol] 28.0 mmol/L 21.0-32.0 [facility] Urea nitrogen/Creatinine [Mass ratio] 20.9 mg/mg 10-20 [facility] No Panel InformationOrdered By: Saad Donaldson on 10-11-2023 Estimated GFR (MDRD) Amer 82 mL/min >60 [facility] Comment on above: GFR Calc Estimated GFR (MDRD) Non-Af Amer 68 mL/min >60 [facility] Comment on above: Non- GFR Calc Prostate Specific Antigen Screen 4.20 ng/mL 0.00-4.00 [facility] Comment on above: This test was perfor med using the TPSA assay method for the[employer] chemistry system. Values obtained with differentassay methods cannot be used interchangably.When changing PSA assays in the course of monitoring apatient, additional sequential testing should be carriedout to confirm baseline values. Serum or plasma calcium arianna urement (mass/volume)Ordered By: Saad Donaldson on 10-11-2023 Calcium [Mass/Vol] 9.3 mg/dL 8.5-10.1 [facility] Serum or plasma creatinine m easurement (mass/volume)Ordered By: Saad Donaldson on 10-11-2023 Creatinine [Mass/Vol] 1.15 mg/dL 0.70-1.30 [facility] Comment on above: The validity of the calculated GFR & GFRAA in patients over 70 years has not been determined. Clinical correlation is essential. Serum or plasma urea nitroge n measurement (mass/volume)Ordered By: Saad Donaldson on 10-11-2023 Urea nitrogen [Mass/Vol] 24 mg/dL 7-18 [facility] Thin prep Papanicolaou smear with manual screeningOrdered By: Saad Donaldson on 10-11-2023 Thin prep Papanicolaou smear with manual screening 4 5-15 [facility] Basophil percentageOrdered B y: Saad Donaldson on 08-09-2023 Bilirubin [Mass/Vol] 0.90 mg/dL 0.20-1.00 [facility] Comment on above: For patients on eltr ombopag therapy, use of Dimension [place] TBIL is not recommended. Chloride [Moles/Vol] 107 mmol/L 98-107 [facility] Cholesterol [Mass/Vol] 165 mg/dL <200 [facility] Comment on above: <200 mg/dL Desirable 200-240 mg/dL Borderline >240 mg/dL High Risk Glucose [Mass/Vol] 119 mg/dL 74-106 [facility] Comment on above: Fasting Glucose resu lt from 100 to 125 mg/dL suggests IMPAIRED HOMEOSTASIS per A.D.A. criteria. Potassium [Moles/Vol] 4.3 mmol/L 3.5-5.1 [facility] Protein [Mass/Vol] 7.8 g/dL 6.4-8.2 [facility] Sodium [Moles/Vol] 138 mmol/L 136-145 [facility] Triglyceride [Mass/Vol] 103 mg/dL <199 [facility] Comment on above: The drugs N-Acetylcy steine and Metamizole may falsely depress this assay.Serum Triglycerides Reference Interval Normal <150 mg/dL Borderline high 150 - 199 mg/dL High 200 - 499 mg/dL Very High > or = 500 mg/dL Laboratory - Chemistry and C hemistry - challengeOrdered By: Saad Donaldson on 08-09-2023 ALP [Catalytic activity/Vol] 67 U/L 45-117 [facility] ALT [Catalytic activity/Vol] 47 U/L 16-61 [facility] CO2 [Moles/Vol] 27.0 mmol/L 21.0-32.0 [facility] Globulin (S) [Mass/Vol] 4.1 g/dL 2.2-4.2 [facility] Urea nitrogen/Creatinine [Mass ratio] 17.4 mg/mg 10-20 [facility] No Panel InformationOrdered By: Saad Donaldson on 08-09-2023 Estimated GFR (MDRD) Amer 78 mL/min >60 [facility] Comment on above: GFR Calc Estimated GFR (MDRD) Non-Af Amer 64 mL/min >60 [facility] Comment on above: Non- GFR Calc Thyroid Stimulating Hormone (TSH) 1.84 uIU/mL 0.358-3.74 [facility] Serum or plasma albumin arianna urement (mass/volume)Ordered By: Saad Donaldson on 08-09-2023 Albumin [Mass/Vol] 3.7 g/dL 3.2-5.0 [facility] Serum or plasma albumin/glob ulin mass ratioOrdered By: Saad Donaldson on 08-09-2023 Albumin/Globulin [Mass ratio] 0.9 {ratio} 0.9-2.4 [facility] Serum or plasma calcium arianna urement (mass/volume)Ordered By: Saad Donaldson on 08-09-2023 Calcium [Mass/Vol] 9.2 mg/dL 8.5-10.1 [facility] Serum or plasma cholesterol in HDL measurement (mass/volume)Ordered By: Saad Donaldson on 08-09-2023 Cholesterol in HDL [Mass/Vol] 48 mg/dL >40 [facility] Comment on above: The drugs N-Acetylcy steine and Metamizole may falsely depress this assay. Reference Range HDL <40 mg/dL Low HDL Cholesterol HDL >or= 60 mg/dL High HDL Cholesterol Serum or plasma cholesterol in VLDL measurement (mass/volume)Ordered By: Saad Donaldson on 08-09-2023 Cholesterol in VLDL [Mass/Vol] 21 mg/dL 5-40 [facility] Serum or plasma creatinine m easurement (mass/volume)Ordered By: Saad Donaldson on 08-09-2023 Creatinine [Mass/Vol] 1.21 mg/dL 0.70-1.30 [facility] Comment on above: The validity of the calculated GFR & GFRAA in patients over 70 years has not been determined. Clinical correlation is essential. Serum or plasma low density lipoprotein (LDL) cholesterol measurement (mass/volume)Ordered By: Saad Donaldson on 08-09-2023 Cholesterol in LDL [Mass/Vol] 96 mg/dL 0-130 [facility] Serum or plasma urea nitroge n measurement (mass/volume)Ordered By: Saad Donaldson on 08-09-2023 Urea nitrogen [Mass/Vol] 21 mg/dL 7-18 [facility] Thin prep Papanicolaou smear with manual screeningOrdered By: Saad Donaldson on 08-09-2023 Thin prep Papanicolaou smear with manual screening 27 U/L 15-37 [facility] Thin prep Papanicolaou smear with manual screening 4 5-15 [facility] Basophil percentageOrdered B y: Saad Donaldson on 01-27-2023 Bilirubin [Mass/Vol] 1.00 mg/dL 0.20-1.00 [facility] Comment on above: For patients on eltr ombopag therapy, use of Dimension [place] TBIL is not recommended. Chloride [Moles/Vol] 106 mmol/L 98-107 [facility] Cholesterol [Mass/Vol] 141 mg/dL <200 [facility] Comment on above: <200 mg/dL Desirable 200-240 mg/dL Borderline >240 mg/dL High Risk Glucose [Mass/Vol] 84 mg/dL 74-106 [facility] Potassium [Moles/Vol] 3.9 mmol/L 3.5-5.1 [facility] Protein [Mass/Vol] 7.9 g/dL 6.4-8.2 [facility] Sodium [Moles/Vol] 138 mmol/L 136-145 [facility] Triglyceride [Mass/Vol] 156 mg/dL <199 [address] [facility] Comment on above: The drugs N-Acetylcy steine and Metamizole may falsely depress this assay.Serum Triglycerides Reference Interval Normal <150 mg/dL Borderline high 150 - 199 mg/dL High 200 - 499 mg/dL Very High > or = 500 mg/dL Laboratory - Chemistry and C hemistry - challengeOrdered By: Saad Donaldson on 01-27-2023 ALP [Catalytic activity/Vol] 67 U/L 45-117 [facility] ALT [Catalytic activity/Vol] 62 U/L 16-61 [facility] CO2 [Moles/Vol] 25.0 mmol/L 21.0-32.0 [facility] Globulin (S) [Mass/Vol] 3.9 g/dL 2.2-4.2 [facility] Urea nitrogen/Creatinine [Mass ratio] 14.4 mg/mg 10-20 [facility] No Panel InformationOrdered By: Saad Donaldson on 01-27-2023 Estimated GFR (MDRD) Amer 80 mL/min >60 [facility] Comment on above: GFR Calc Estimated GFR (MDRD) Non-Af Amer 66 mL/min >60 [facility] Comment on above: Non- GFR Calc Serum or plasma albumin arianna urement (mass/volume)Ordered By: Saad Donaldson on 01-27-2023 Albumin [Mass/Vol] 4.0 g/dL 3.2-5.0 [facility] Serum or plasma albumin/glob ulin mass ratioOrdered By: Saad Donaldson on 01-27-2023 Albumin/Globulin [Mass ratio] 1.0 {ratio} 0.9-2.4 [facility] Serum or plasma calcium arianna urement (mass/volume)Ordered By: Saad Donaldson on 01-27-2023 Calcium [Mass/Vol] 9.1 mg/dL 8.5-10.1 [facility] Serum or plasma cholesterol in HDL measurement (mass/volume)Ordered By: Saad Donaldson on 01-27-2023 Cholesterol in HDL [Mass/Vol] 45 mg/dL >40 [facility] Comment on above: The drugs N-Acetylcy steine and Metamizole may falsely depress this assay. Reference Range HDL <40 mg/dL Low HDL Cholesterol HDL >or= 60 mg/dL High HDL Cholesterol Serum or plasma cholesterol in VLDL measurement (mass/volume)Ordered By: Saad Donaldson on 01-27-2023 Cholesterol in VLDL [Mass/Vol] 31 mg/dL 5-40 [facility] Serum or plasma creatinine m easurement (mass/volume)Ordered By: Saad Donaldson on 01-27-2023 Creatinine [Mass/Vol] 1.18 mg/dL 0.70-1.30 [facility] Comment on above: The validity of the calculated GFR & GFRAA in patients over 70 years has not been determined. Clinical correlation is essential. Serum or plasma low density lipoprotein (LDL) cholesterol measurement (mass/volume)Ordered By: Saad Donaldson on 01-27-2023 Cholesterol in LDL [Mass/Vol] 65 mg/dL 0-130 [facility] Serum or plasma urea nitroge n measurement (mass/volume)Ordered By: Saad Donaldson on 01-27-2023 Urea nitrogen [Mass/Vol] 17 mg/dL 7-18 [facility] Thin prep Papanicolaou smear with manual screeningOrdered By: Saad Donaldson on 01-27-2023 Thin prep Papanicolaou smear with manual screening 41 U/L 15-37 [facility] Thin prep Papanicolaou smear with manual screening 7 5-15 [facility] Vital Signs Date Time Vital Sign Value Performing Clinician Faci lity 05-04-2025 12:40-0400 Body temperature 98.2 [degF] Dr. Saad Donaldson MD Work Phone: 4(010)[phone] [place] [address] 05-04-2025 12:40-0400 Diastolic blood pressure 87 mm[Hg] Dr. Saad Donaldson MD Work Phone: 8(890)944-486110 [place] [address] 05-04-2025 12:40-0400 Heart rate 89 /min Dr. Saad Donaldson MD Work Phone: 1(554)059-023110 [place] [address] 05-04-2025 12:40-0400 Respiratory rate 16 /min Dr. Saad Donaldson MD Work Phone: 9(143)551-836040 [address] 05-04-2025 12:40-0400 SaO2% (BldA) [Mass fraction] 97 % Dr. Saad Donaldson MD Work Phone: 3(694)418-204440 [address] 05-04-2025 12:40-0400 Systolic blood pressure 122 mm[Hg] Dr. Saad Donaldson MD Work Phone: 1(080)[phone] [place] [address] 05-04-2025 10:54-0400 Body height 170.[address] Saad Donaldson MD Work Phone: [facility] 05-04-2025 10:54-0400 Body mass index (BMI) [Ratio] 31.1 kg/m2 Dr. Saad Donaldson MD Work Phone: 5(898)[phone] [place] [address] 05-04-2025 10:54-0400 Body weight [address] Saad Donaldson MD Work Phone: 1(082)[phone] [address] 04-14-2025 14:13-0400 Body height 170.[address] Saad Donaldson MD Work Phone: [facility] 04-14-2025 14:13-0400 Body mass index (BMI) [Ratio] 29.9 kg/m2 Dr. Saad Donaldson MD Work Phone: [facility] 04-14-2025 14:13-0400 Body weight 86.[address] Saad Donaldson MD Work Phone: [facility] 04-14-2025 14:13-0400 Diastolic blood pressure 81 mm[Hg] Dr. Saad Donaldson MD Work Phone: [facility] 04-14-2025 14:13-0400 Heart rate 68 /min Dr. Saad Donaldson MD Work Phone: [facility] 04-14-2025 14:13-0400 Respiratory rate 17 /min Dr. Saad Donaldson MD Work Phone: [facility] 04-14-2025 14:13-0400 SaO2% (BldA) [Mass fraction] 97 % Dr. Saad Donaldson MD Work Phone: [facility] 04-14-2025 14:13-0400 Systolic blood pressure 133 mm[Hg] Dr. Saad Donaldson MD Work Phone: [facility] 12-01-2023 14:25-0400 Body temperature 97.7 [degF] Dr. Saad Donaldson Work Phone: [facility] 12-01-2023 14:25-0400 Diastolic blood pressure 92 mm[Hg] Dr. Saad Donaldson Work Phone: [facility] 12-01-2023 14:25-0400 Heart rate 64 /min Dr. Saad Donaldson Work Phone: [facility] 12-01-2023 14:25-0400 Respiratory rate 16 /min Dr. Saad Donaldson Work Phone: [facility] 12-01-2023 14:25-0400 SaO2% (BldA) [Mass fraction] 97 % Dr. Saad Donaldson Work Phone: [facility] 12-01-2023 14:25-0400 Systolic blood pressure 123 mm[Hg] Dr. Saad Donaldson Work Phone: [facility] 12-01-2023 13:08-0400 Body height 170.[address] Saad Donaldson Work Phone: [facility] 12-01-2023 13:08-0400 Body mass index (BMI) [Ratio] 29.2 kg/m2 Dr. Saad Donaldson Work Phone: [facility] 12-01-2023 13:08-0400 Body weight 84.[address] Saad Donaldson Work Phone: [facility] 11-10-2023 13:24-0400 Body mass index (BMI) [Ratio] 30.5 kg/m2 Dr. Saad Donaldson Work Phone: [facility] 11-10-2023 13:24-0400 Body weight 88.[address] Saad Donaldson Work Phone: [facility] 11-10-2023 13:24-0400 Diastolic blood pressure 80 mm[Hg] Dr. Saad Donaldson Work Phone: [facility] 11-10-2023 13:24-0400 Heart rate 62 /min Dr. Saad Donaldson Work Phone: [facility] 11-10-2023 13:24-0400 Respiratory rate 17 /min Dr. Saad Donaldson Work Phone: [facility] 11-10-2023 13:24-0400 SaO2% (BldA) [Mass fraction] 98 % Dr. Saad Donaldson Work Phone: [facility] 11-10-2023 13:24-0400 Systolic blood pressure 130 mm[Hg] Dr. Saad Donaldson Work Phone: [facility] Encounters Encounter Date Encounter Type Care Provider Facility Start: 05-18-2025 End: 05-18-2025 Patient encounter procedure Ayala Jasso PA-C -[facility] Work Phone: Start: 05-18-2025 End: 05-18-[address] Saad Donaldson MD Work Phone: -[facility] Start: 05-12-2025 End: 05-12-[address] Javi Pérez MD -[facility] Work Phone: Start: 05-12-2025 End: 05-12-[address] Saad Donaldson MD Work Phone: -[facility] Start: 05-09-2025 Patient encounter procedure Ayala Louisa WILL -Laboratory Specimen Work Phone: Start: 05-09-2025 End: 05-09-[address] Javi Pérez MD -[facility] Work Phone: Start: 05-09-2025 End: 05-09-[address] Saad Donaldson MD Work Phone: -[facility] Start: 05-09-2025 End: 05-09-2025 ambulatory Saad Donaldson Facility:[facility] Start: 05-04-2025 Non-patient / Non-visit Dr. Javi Pérez MD -[facility] Start: 05-04-2025 End: 05-04-2025 Admission to same day surgery center Dr. Javi Pérez MD [facility] Start: 05-04-2025 End: 05-04-[address] Saad Donaldson MD Work Phone: [facility] Start: 04-14-2025 End: 04-14-[address] Javi Pérez MD -[facility] Work Phone: Start: 04-14-2025 End: 04-14-[address] Saad Donaldson MD Work Phone: -[facility] Start: 01-01-2025 End: 01-01-[address] Saad Donaldson MD Work Phone: [facility] Work Phone: Start: 01-01-2025 End: 01-01-[address] Saad Donaldson MD -Laboratory Work Phone: Start: 01-01-2025 End: 01-01-2025 ambulatory Saad Donaldson Facility:[facility] Start: 10-30-2024 End: 10-30-[address] Saad Donaldson MD Work Phone: [facility] Work Phone: Start: 10-30-2024 End: 10-30-[address] Saad Donaldson MD -Laboratory Work Phone: Start: 10-30-2024 End: 10-30-2024 ambulatory Saad Donaldson Facility:[facility] Start: 06-29-2024 ambulatory Saad Donaldson Facility:[facility] Start: 06-03-2024 End: 06-03-2024 ambulatory Saad Donaldson Facility:[facility] Start: 12-01-2023 Non-patient / Non-visit Dr. Saad Donaldson Work Phone: [facility] Start: 12-01-2023 End: 12-01-2023 Admission to same day surgery center Dr. Saad Donaldson Work Phone: [facility]-Endoscopy Work Phone: Start: 12-01-2023 End: 12-01-[address] Saad Donaldson Work Phone: [facility] Work Phone: Start: 11-10-2023 End: 11-10-[address] Saad Donaldson Work Phone: [facility] Work Phone: Start: 10-21-2023 End: 10-21-2023 ambulatory [facility] Work Phone: Start: 10-21-2023 End: 10-21-2023 Patient encounter procedure [facility]-Cat Scan, [facility] Work Phone: Start: 10-11-2023 End: 10-11-2023 ambulatory [facility] Work Phone: Start: 10-11-2023 End: 10-11-2023 Patient encounter procedure [facility]-Laboratory Work Phone: Start: 08-09-2023 End: 08-09-2023 ambulatory [facility] Work Phone: Start: 08-09-2023 End: 08-09-2023 Patient encounter procedure [facility] Work Phone: Start: 01-27-2023 End: 01-27-2023 ambulatory [facility] Work Phone: Start: 01-27-2023 End: 01-27-2023 Patient encounter procedure [facility]-Laboratory, Florencia Horton Start: 01-25-2023 End: 01-25-2023 Emergency department patient visit [facility] Procedures Date Procedure Procedure Detail Performing Clinician Start: 05-09-2025 Urnls dip stick/tabl et reagent auto microscopy Dr. Saad Donaldson MD Work Phone: Start: 05-04-[address] Chencho Donaldson MD Work Phone: Start: 01-01-2025 Assay of prostate sp ecific antigen total Dr. Saad Donaldson MD Work Phone: Comment on above: This test was perfor med using the [employer] tPSA method. Measured values of a patient sample can vary depending on the testing procedure used. PSA values determined on patient samples by different testing procedures cannot be used interchangeably. If there is a change in PSA assays while monitoring therapy, sequential testing should be performed to confirm baseline values. Start: 12-01-[address] Saad casas Work Phone: Start: 10-21-2023 CT of chest Plan of Treatment Date Care Activity Detail Author Start: 05-18-2025 End: 05-18-2025 Patient encounter procedure Lipoma of back -[facility] Work Phone: Start: 05-04-2025 Anes integ musc & nr v head neck&posterior trunk ANESTH HEAD/NECK/PTRUNK [facility] Start: 05-04-2025 Exc tumor soft tiss back/flank subfascial 5 cm/> EXC BACK LANA DEEP 5 CM/> [facility] Start: 05-04-2025 Patient discharge [facility] Start: 12-01-2023 Patient discharge [facility] Colonoscopy [facility] Patient referral [facility] Work Phone: Payers Date Payer Category Payer Medicare [id number] 2024 Self-pay [id number] 2024 Unknown [id number] 2022 Unknown [id number] 1960 Unknown [id number] 2.16. [id number] Medicare [id number] Unknown [id number] 2.16.8 [id number] Unknown [id number] 2.16.8 [id number] Unknown [id number] 2.16.8 [id number] Unknown [id number] 2.16.8 [id number] Unknown [id number] 2.16.8 [id number] Unknown [id number] 2.16.8 [id number] Unknown [id number] 2.16.8 [id number] Unknown [id number] 2.16.8 [id number] Unknown [id number] 2.16.8 [id number] Unknown [id number] 2.16.8 [id number] Unknown [id number] 2.16.8 [id number] Social History Date Type Detail Facility Start: 10-28-2019 End: 11-27-2023 Tobacco smoking status HIIS Unknown if ever smoked [facility] Start: 10-28-2019 None [facility] Start: 10-28-2019 With Family [facility] Start: 1960 Sex Assigned At Male [facility] Start: 11-27-2023 End: 04-25-2025 Tobacco smoking status NHIS Ex-smoker (finding) [facility] Start: 11-03-2024 Sex Male (finding) [facility] Sex Male [facility] Goals Date Patient Goal Desired Activity /State Mental Status Date Assessment Result Facility 05-04-2025 Cognitive function Level Of Consciousness Awake [facility] Work Phone: 05-04-2025 Cognitive function Voice/Name [facility] Work Phone: 12-01-2023 Cognitive function Awake;Alert;Appropriat [facility] Work Phone: 12-01-2023 Cognitive function Arousable To Voice/Nam [facility] Work Phone: Clinical Notes 12-01-2023 to 05-18-2025 Note Date & Type Note Facility 05-18-2025 Progress note [facility] 05-12-2025 Progress note [facility] 05-12-2025 Progress note Note Date/Time May 12, 2025 3:40pm [facility] [address] Prasad [address] OFFICE VISIT Date of Service: 05/12/25 MR#: [id number] Acct: [id number] Patient: NARAYAN OHARA Rep #: [id number] : 1960 Provider: Dr. Bandar Pérez MD Age/Sex: 64/M Location: [facility] Status: Signed Intake Vital Signs 05/04/25 10:54 Height 5 ft 7 in Intake Visit Reasons: urine retention/rosario Chief Complaint: urinary retention Is patient in pain?: No Allergies No Known Allergies Allergy (Verified 05/12/25 15:24) Medications ?Medication ?Instructions ?Recorded ?Confirmed ?Type omeprazole 20 mg capsule,delayed 20 mg PO DAILY 05/12/25 History release tamsulosin 0.4 mg capsule (Flomax) 0.4 mg PO DAILY 03/2705/12/25 History meloxicam 15 mg tablet 15 mg PO QDAY 04/14/2505/12 History atorvastatin 20 mg tablet 20 mg PO DAILY 04/25/2504/28 History Have you fallen in the past year?: No Nursing Note Patient arrived to have rosario catheter placed. He said he has only voided small amounts since removal of catheter. No c/o pain or fullness. Patient prepped and 16fr 10cc rosario catheter inserted. Clear yellow urine returned. Catheter bag [id number] of urine in it when procedure completed. Patient tolerated procedure well.Said he had some burning after catheter placed. Told patient to leave rosario inplace. To ask Dr Kwan's office when he makes his appointment if he should leave in until seen by Dr Kwan. Education reviewed on how to take care of rosario. Clinical Quality Measures Falls Risk Screening/Assistive Devices Have you fallen in the past year?: No 05/16/25 0738 <Electronically signed by Javi velez MD> Date _ Javi Pérez MD Cosigner Signature: Date (if applicable) CC: ~ [facility] Work Phone: 1(863) 148-814910-01-2025 History and physical note [facility] Medical Records Department [address] [place] [address] History & Physical Exam 05/04/25 1124 MR#: [id number] Acct: [id number] Name: NARAYAN OHARA Rep #:[id number] : 1960 64 From: Javi borges MD PCP: Dr. Saad Donaldson MD Status:REG S DC Location: [place] [address] History and Physical Date of Admission: 05/04/25 Intake Vital Signs 11/30/2412:08 04/14/2514:13 Height 5 ft 7 in 5 ft 7 in Weight: 191 lb BMI 29.9 BP 133/81 H Blood Pressure Location Rt brachial Position Sitting Respiration 17 Pulse 68 Pulse Source Monitor Pulse Oximetry (%) 97 Oxygen Delivery Method room air Intake Visit Reasons: LIPOMA LOWER BACK Chief Complaint: lipoma lower back Is patient in pain?: Yes (sciatic nerve pain) Allergies No Known Allergies Allergy (Verified 04/14/25 14:15) Medications ?Medication ?Instructions ?Recorded ?Confirmed ?Type omeprazole 20 mg capsule,delayed 20 mg PO DAILY 11/10/23 04/14/25 History release rosuvastatin 5 mg tablet (Crestor) 5 mg PO DAILY 11/10/23 04/14/25 History tamsulosin 0.4 mg capsule (Flomax) 0.4 mg PO DAILY 11/10/23 04/14/25 Histor y meloxicam 15 mg tablet 15 mg PO QDAY 04/14/25 04/14/25 History Have you fallen in the past year?: No PFSH Medical History (Updated 04/14/25 @ 14:12 by Candis Fletcher) Wears glasses Wears dentures History of IBS History of edema Former smoker Acid reflux Surgical History History of cardiac catheterization (~2004) History of wisdom tooth extraction History of cholecystectomy (~2013) Family History Brother Heart disease CVA (cerebral vascular accident) Social History (Updated 04/14/25 @ 14:12 by Candis Fletcher) Smoking Status: Former smoker alcohol intake: former substance use type: does not use HPI HPI HPI: Patient is a 64-year-old male who is here for a lipoma in his right lower back. 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 He says it is verytender especially when bouncing. ROS General General: No weight change, appetite, fatigue, colon cancer, breast cancer or weakness HEENT HEENT: No difficulty swallowing, eye injury, eye surgery, swollen glands or hoarseness Endo Endocrine: No thyroid disease, diabetes mellitus, thyroid cancer, Hair loss, heat intolerance or cold intolerance Skin Skin: No rash or changing moles Musc Musculoskeletal: No back problems, arthritis, rheumatoid arthritis, gout or joint pain Cardio Cardiovascular: No murmur, pacemaker, heart disease, atrial fibrillation, high blood pressure, heart attack, heart stent, palpitations, shortness of breath with exertion or chest pain Psych Psychiatric: No depression, anxiety or hearing voices Resp Respiratory: No shortness of breath, No sleep apnea, No cough, No COPD, No asthma, No emphysema andNo wheezing Gastro Gastrointestinal: No abdominal pain, No nausea or vomiting, Yes diarrhea, Yes constipation, No blood in stool, Yes acid reflux, No hemorrhoids, No ulcers, No gallbladder problem and No black,tarry stools Dago Hematologic: No blood thinners, No blood disorders, No bleeding, No anemia and No blood clots Neuro Neurologic: No system reviewed and no additional complaints, except as documented, No as per HPI, No abnormal gait, No abnormal hearing, No abnormal movements, No abnormal speech, No behavioral changes, No burning sensations, No confusion, No convulsions, No disequilibrium, No dizziness, No localized weakness, No frequent falls, No headache(s), No lack of coordination, No loss ofvision, No memoryloss, No numbness, No other visual disturbances, No radicular pain, No restless legs, No sensory deficit, No syncope, No tingling, No tremor(s), No weakness and No other Exam Const General: cooperative Orientation: alert and oriented x3 HENMT Head: normal to inspection Neck Neck: normal visual inspection and full ROM Chest Chest palpation & inspection: normal inspection of the chest Resp Effort & Inspection: normal respiratory effort Auscultation: clear to auscultation bilaterally Cardio Rate: regular rate Rhythm: regular rhythm GI Inspection: non-distended Palpation: soft and nontender Musc Other: Soft mobile mass in the right lower back just above the belt line Skin General: no rashes or lesions noted Neuro General: patient alert and patient oriented x3 Extrem General: full ROM Psych Appearance: grossly normal Mental Status: mental status grossly normal Assessment and Plan Assessment and Plan (1) Lipoma of back: Status: Acute Plan: The patient has what feels to be a lipoma in the lower right back. He would like this removed as his doctor believes this could be causing his sciatica. I informed him that he might just have sciatica and it might not have anything to do with a lipoma but I could remove this for him. He understandsthat he may still have pain after the removal. I discussed excising the lipoma in detail with the patient. It is quite deep so I would do it in the operating room. I discussed excision of lipoma as well as the risks of the procedure such as bleeding, infection, and nerve injury. Patient understandsthe risks and is willing to proceed. Javi Pérez MD Pager: [facility] [address] [place] [address] [address] [place] [address] Office: I have examined the patient and the H&P has been reviewed. There are no clinicalchanges since date of exam. 05/04/251123 Cosigner Signature (if applicable): CC: Dr. Javi Pérez MD; Dr. Saad Donaldson MD~ Signed [facility]10-01-2025 History and physical note Author Javi Pérez [facility] Note Date/Time May 04, 2025 1: 47pm [facility] Medical Records Department [address] [id number] History & Physical Exam 05/04/251123 MR#: [id number] Acct: [id number] Name: NARAYAN OHARA Rep #:[id number] : 1960 64 From: Javi borges MD PCP: Dr. Saad Donaldson MD Status:REG S CO Location: [place] [address] History and Physical Date of Admission: 05/04/25 Intake Vital Signs 11/30/2412:08 04/14/2514:13 Height 5 ft 7 in 5 ft 7 in Weight: 191 lb BMI 29.9 BP 133/81 H Blood Pressure Location Rt brachial Position Sitting Respiration 17 Pulse 68 Pulse Source Monitor Pulse Oximetry (%) 97 Oxygen Delivery Method room air Intake Visit Reasons: LIPOMA LOWER BACK Chief Complaint: lipoma lower back Is patient in pain?: Yes (sciatic nerve pain) Allergies No Known Allergies Allergy (Verified 04/14/25 14:15) Medications ?Medication ?Instructions ?Recorded ?Confirmed ?Type omeprazole 20 mg capsule,delayed 20 mg PO DAILY 11/10/23 04/14/25 History release rosuvastatin 5 mg tablet (Crestor) 5 mg PO DAILY 11/10/23 04/14/25 History tamsulosin 0.4 mg capsule (Flomax) 0.4 mg PO DAILY 11/10/23 04/14/25 Histor y meloxicam 15 mg tablet 15 mg PO QDAY 04/14/25 04/14/25 History Have you fallen in the past year?: No PFSH Medical History (Updated 04/14/25 @ 14:12 by Candis Fletcher) Wears glasses Wears dentures History of IBS History of edema Former smoker Acid reflux Surgical History History of cardiac catheterization (~2004) History of wisdom tooth extraction History of cholecystectomy (~2013) Family History Brother Heart disease CVA (cerebral vascular accident) Social History (Updated 04/14/25 @ 14:12 by Candis Fletcher) Smoking Status: Former smoker alcohol intake: former substance use type: does not use HPI HPI HPI: Patient is a 64-year-old male who is here for a lipoma in his right lower back. 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 He says it is very tender especially when bouncing. ROS General General: No weight change, appetite, fatigue, colon cancer, breast cancer or weakness HEENT HEENT: No difficulty swallowing, eye injury, eye surgery, swollen glands or hoarseness Endo Endocrine: No thyroid disease, diabetes mellitus, thyroid cancer, Hair loss, heat intolerance or cold intolerance Skin Skin: No rash or changing moles Musc Musculoskeletal: No back problems, arthritis, rheumatoid arthritis, gout or joint pain Cardio Cardiovascular: No murmur, pacemaker, heart disease, atrial fibrillation, high blood pressure, heart attack, heart stent, palpitations, shortness of breath with exertion or chest pain Psych Psychiatric: No depression, anxiety or hearing voices Resp Respiratory: No shortness of breath, No sleep apnea, No cough, No COPD, No asthma, No emphysema and No wheezing Gastro Gastrointestinal: No abdominal pain, No nausea or vomiting, Yes diarrhea, Yes constipation, No blood in stool, Yes acid reflux, No hemorrhoids, No ulcers, No gallbladder problem and No black,tarry stools Dago Hematologic: No blood thinners, No blood disorders, No bleeding, No anemia and No blood clots Neuro Neurologic: No system reviewed and no additional complaints, except as documented, No as per HPI, No abnormal gait, No abnormal hearing, No abnormal movements, No abnormal speech, No behavioral changes, No burning sensations, No confusion, No convulsions, No disequilibrium, No dizziness, No localized weakness, No frequent falls, No headache(s), No lack of coordination, No loss ofvision, No memory loss, No numbness, No other visual disturbances, No radicular pain, No restless legs, No sensory deficit, No syncope, No tingling, No tremor(s), No weakness and No other Exam Const General: cooperative Orientation: alert and oriented x3 HENMT Head: normal to inspection Neck Neck: normal visual inspection and full ROM Chest Chest palpation & inspection: normal inspection of the chest Resp Effort & Inspection: normal respiratory effort Auscultation: clear to auscultation bilaterally Cardio Rate: regular rate Rhythm: regular rhythm GI Inspection: non-distended Palpation: soft and nontender Musc Other: Soft mobile mass in the right lower back just above the belt line Skin General: no rashes or lesions noted Neuro General: patient alert and patient oriented x3 Extrem General: full ROM Psych Appearance: grossly normal Mental Status: mental status grossly normal Assessment and Plan Assessment and Plan (1) Lipoma of back: Status: Acute Plan: The patient has what feels to be a lipoma in the lower right back. He would like this removed as his doctor believes this could be causing his sciatica. I informed him that he might just have sciatica and it might not have anything to do with a lipoma but I could remove this for him. He understands that he may still have pain after the removal. I discussed excising the lipoma in detail with the patient. It is quite deep so I would do it in the operating room. I discussed excision of lipoma as well as the risks of the procedure such as bleeding, infection, and nerve injury. Patient understands the risks and is willing to proceed. Javi Pérez MD Pager: [facility] [address] [place] [address], [address] [place] [address] Office: I have examined the patient and the H&P has been reviewed. There are no clinicalchanges since date of exam. 05/04/25 1124 <Electronically signed by Javi Pérez MD> Cosigner Signature (if applicable): CC: Dr. Javi Pérez MD; Dr. Saad Donaldson MD~ Signed [facility] Work Phone: 1(993) 547-602610-01-2025 Consult note Author Narayan Johnson [facility] Note Date/Time May 04, 2025 11 :15am [facility] Medical Records Department [address] [place] [id number] Pre-Anesthesia Evaluation 05/04/25 1110 MR#: [id number] Acct: [id number] Name: NARAYAN OHARA Rep #:[id number] : 1960 64 From: Narayan Kaufman PCP: Dr. Saad Donaldson MD Status:REG S DC Y Race: C Location: [place] [address] ASA Classification* ASA Classification ASA Classification: 2 Assessment & Plan Anesthesia* Anesthesia Assessment Anesthesia Assessment: Discussed sedation and/or anesthesia options, risks, benefits, and alternatives with patient/parents/legal guardian/POA. Questions invited. The patient/parents/legal guardian/POA seems to understand and agrees to proceedwith anesthesia plan. Reviewed the physical assessment, medical history, allergy history and patient home medications list prior to surgery/procedure/anesthetic and documented any changes. Performed airway and anesthesia risk assessments. Anesthesia Type Anesthesia Type: General History Source History Obtained from:: Patient and Chart Anesthesia Focused Assessment* Temperature: 99.0 F Pulse Rate: 74 Blood Pressure: 107/66 Respiratory Rate: 16 Pulse Ox: 98 Oxygen Delivery Method: Room Air Airway Assessment Mouth opens: >3 cm Mallampati Score: III Teeth Condition: Dentures Neck Range of motion (ROM): Full ROM Labs Anesthesia Preop lab: CBC WBC, (4.4-11.0) 8.5 K/mm3 10/28/19, 00:10 RBC, (4.6-6.2) 5.09 M/mm3 10/28/19, 00:10 Hgb, (13.0-16.5) 16.4 g/dL 10/28/19, 00:10 Hct, (40-54) 47.2 % 10/28/19, 00:10 Plt Count, (150-450) 201 K/mm3 10/28/19, 00:10 CHEMISTRY Potassium, (3.3-5.1) 4.0 mmol/L 01/01/25, 08:41 Sodium, (133-145) 137 mmol/L 01/01/25, 08:41 BUN, (4-19) 15 mg/dL 01/01/25, 08:41 Creatinine, (0.70-1.20) 1.22 mg/dL H 01/01/25, 08:41 Glucose, (70-99) 114 mg/dL H 01/01/25, 08:41 TSH, (0.358-3.74) 1.84 uIU/mL 08/09/23, 10:49 COAG Pre-Assessment Diagnosis/Proposed Procedure Planned Operative Procedure(s): (R) Excision,Right lower back Lipoma Anesthesia History 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 When Was Last Pacemaker Check QUESTION #4 FULL TEXT: You/Your Family Experience fever (hyperthermia) with Anesthesia Last Oral Intake Last Oral intake: Last Oral Intake NPO since 23:00 05/04/25 10:54 Meds taken in AM with sips of No 05/04/25 10:54 water? Meds patient instructed to take am of surgery PONV PONV - edge brusher: PONV - edge brusher Female No 04/25/25 11:18 HX of Motion Sickness No 04/25/25 11:18 HX of N/V After Surgery No 04/25/25 11:18 Non-Smoker Yes 04/25/25 11:18 Duration of Surgery greater No 04/25/25 11:18 than 60 minutes Number of Risk Factors 1 04/25/25 11:18 PONV Score Low Risk 04/25/25 11:18 Height & Weight Height & Weight: Anesthesia: Height & Weight Height 5 ft 7 in 05/04/25 10:54 Weight: 90 kg 05/04/25 10:54 Body Mass Index (BMI) 31.1 05/04/25 10:54 Respiratory Assessment Respiratory Assessment - edge brusher: Respiratory Tract Infection Hx - edge brusher Hx Respiratory Tract Infection No 04/25/25 11:18 STOP Sleep Apnea STOP Sleep Apnea - edge brusher: STOP Sleep Apnea - edge brusher Hx Hypertension No 04/25/25 11:18 Hx Sleep Apnea No 04/25/25 11:18 CPAP No 04/25/25 11:18 BIPAP Do you snore loudly (louder No 04/25/25 11:18 than talking or can be heard Do you often feel tired/ No 04/25/25 11:18 fatigued/ sleepy during daytime? Has anyone observed you stop No 04/25/25 11:18 breathing during sleep? STOP Results Negative 04/25/25 11:18 QUESTION #5 FULL TEXT : Do you snore loudly (louder than talking or can be heard through closed doors)? 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 Specify any problems Hx of Preganancy in last 3 N/A 04/25/25 11:18 Months Nurse Filling Out Transfusion VCHRISTIN 04/25/25 11:18 & Questions: Date: 04/25/25 04/25/25 11:18 Time: 11:19 04/25/25 11:18 Patient unable to answer at this time (ie. confused, unrespo /Reproduction History /Reproductive History - edge brusher: /Reproductive Hx- edge brusher Hx Now No 04/25/25 11:18 Gestational Age (in weeks): EDC: Hx Hx Para Hx Section SAB No 04/25/25 11:18 Active Medications Active Medications: Current Medications Generic Name Dose Route Start Last Admin Trade Name Freq PRN Reason Stop Dose Admin Cefazolin Sodium 2 gm/ Sodium 110 mls @ 200 mls/hr 05/04/25 12:15 Chloride IV 05/04/25 12:47 INTRAOP ONE Lactated Ringer's 1,000 mls @ 15 mls/hr 05/04/25 10:45 05/04/25 11:02 IV 15 mls/hr .Q48H DARLEEN Administration PFSH Medical History History of stress test Wears glasses Wears dentures History of IBS History of edema Former smoker Acid reflux Home Medications ?Medication ?Instructions ?Recorded ?Last Taken ?Type omeprazole 20 mg capsule,delayed 20 mg PO DAILY 11/30/23 History release tamsulosin 0.4 mg capsule (Flomax) 0.4 mg PO DAILY 03/2711/30/23 History meloxicam 15 mg tablet 15 mg PO QDAY 04/14/25 Unkno wn History atorvastatin 20 mg tablet 20 mg PO DAILY 04/25/25 Unkn own History Allergy/AdvReac Type Severity Reaction Status Date / Time No Known Allergies Allergy Verified 05/04/25 10:53 Family History Brother Heart disease CVA (cerebral vascular accident) Surgical History Hx of colonoscopy History of cardiac catheterization (~2004) History of wisdom tooth extraction History of cholecystectomy (~2013) Social History Smoking Status: Former smoker alcohol intake: former substance use type: does not use Addt'l Information Additional Findings: > 4 METS Review of Systems (Anesthesia) ROS Narrative System reviewed and no additional complaints, except as documented. Physical Exam Const alert, oriented x3 and average body habitus Resp normal respiratory effort and normal air movement Auscultation: clear to auscultation bilaterally Cardio regular rate and regular rhythm Back/Spine normal ROM Neuro oriented x3 and moves all extremities 05/04/25 1115 <Electronically signed by Narayan Johnson MD> Date _ Narayan Johnson MD Cosigner Signature: Date CC: ~ Signed [facility] Work Phone: 1(391) 311-832810-01-2025 Discharge summary [facility] Medical Records Department [address] [place] [address] Instructions for Home/Discharge Instructions 05/04/25 1219 MR#: [id number] Acct: [id number] Name: NARAYAN OHARA FRANCISCO Rep #:[id number] : 1960 64 From: Javi borges MD PCP: Dr. Saad Donaldson MD Status:REG S DC Discharge Instructions Diet Discharge Diet: Light diet - advance as tolerated Activity Discharge Activity: May Drive (when off narcotics) and May Shower Dressing / Incision Call your doctor if your incision/area has: Continuous Slow Oozing, Sudden Increased Bleeding, Increased Pain/ Swelling, Increased Redness, Foul Smelling Discharge and Swelling at the incision site Call your doctor if you observe: Fever of 101 or Higher Cleanse incision/area with: Soap & Water Follow Up Care Please Follow Up With: Javi Pérez MD When: Please call to schedule 2 week follow up appointment. [phone] Test Results: Test results from this visit will be discussed in further detail at your follow- up appointment, if applicable. Discharge Plan Admission Attending Provider: Javi Pérez Primary Care Provider: Saad Donaldson Instructions Print Language: Guamanian Discharge Orders/Prescriptions Prescriptions: New oxycodone 5 mg Tablet 5 - 10 mg PO Q4H PRN PRN (Reason: Pain Score 4-10) 5 Days Qty: 10 0RF No Action tamsulosin [Flomax] 0.4 mg capsule 0.4 mg PO DAILY omeprazole 20 mg capsule,delayed release(DR/EC) 20 mg PO DAILY meloxicam 15 mg tablet 15 mg PO QDAY atorvastatin 20 mg tablet 20 mg PO DAILY Referrals / Follow Up: Saad Donaldson MD [Primary Care Provider, Family Practice] Disposition Disposition (needs filled in before D/C Order can be placed): Home, Self Care 05/04/25 1224Anthoms Elisa FRANCO CC: Dr. Saad Donaldson MD ~ Signed [facility]10-01-2025 Consult note [facility] Medical Records Department [address] [place] [address] Anesthesia Postop Eval I 05/04/25 1220 MR#: [id number] Acct: [id number] Name: NARAYNA OHARA Rep #:[id number] : 1960 64 From: Nilda Rdz CRNA PCP: Dr. Saad Donaldson MD Status:REG S DC Y Race: C Location: [place] [address] Anesthesia: Postop Eval I Current Vital Signs Temperature: 97.1 F Pulse Rate: 104 Blood Pressure: 160/84 Respiratory Rate: 20 Pulse Ox: 93 Assessment Airway patent: Yes Spontaneous unlabored respirations: Yes nausea: No Vomiting: No Anesthesia Complication: No Fluid Hydration Crystalloid volume administer (ml): 1,000 Total IV fluid infused: 1,000 Progress Note Anesthesia document: Postop Eval 1 completed: Yes 05/04/25 1221 a [employer]ETER[employer] COORDINATOR> Date _ Nilda Rdz VETERANS' COORDINATOR Cosigner Signature: Date CC: ~ Signed [facility]10-01-2025 Procedure note [facility] Medical Records Department [address] [place] [address] Operative Report 05/04/25 1216 MR#: [id number] Acct: [id number] Name: NARAYAN OHARA Rep #:[id number] : 1960 64 From: Javi borges MD PCP: Dr. Saad Donaldson MD Status:REG S CO Location: [place] [address] Operative Report (Standard) Operative Information Date of Procedure: 05/04/25 Pre-Operative Diagnosis: Right lower back lipoma Post-Operative Diagnosis: Right lower back lipoma Surgery/Procedure Performed: Right lower back lipoma excision compliance attorney: Yes Dialysis Social Worker: Amy Ryan Tasks completed by medical administrative assistant: Retracting Type of Anesthesia: General/Regional RN Documented Start/Stop Times: Operation Date: 05/04/25 12:15 Case Time Into Pre-Op 05/04/25 10:37 Out of Pre-Op 05/04/25 11:30 Anesthesia Start 05/04/25 11:34 Into Room 05/04/25 11:34 Procedure Start 05/04/25 11:54 Procedure End 05/04/25 12:07 Anesthesia End 05/04/25 12:15 Out of Room 05/04/25 12:15 Procedure Start Time: 11:54 Procedure Stop Time: 12:15 Select all DRAINS/GRAFTS/IMPLANTS that apply: None Estimated Blood Loss: 5 Specimen collected: Yes Description of specimen(s) removed: Right lower back lipoma Description of surgery: Patient was brought to the operating room and general anesthesia was induced. The patient was placed in prone jackknife position. The area in the right lowerback was ultrasounded and the area was circled. The back was prepped and drapedin usual sterile fashion. An incision was marked and made with a scalpel. It was deepened to the subcutaneous tissue. Electrocautery was used to maintain hemostasis. The lipoma was evident and it was dissected free bluntly and with electrocautery until it was removed. The cavity was irrigated and suctioned dry. The skin was then closed with interrupted 3-0 Vicryl sutures and Dermabond. Patient tolerated the procedure well. The specimen was approximately 10 cmin diameter and it was deep Surgical Findings: Right lower back lipoma Complications Complications: No 05/04/25 1218 Cosigner Signature (if applicable): CC: Dr. Javi Pérez MD; Dr. Saad Donaldson MD~ Signed [facility]10-01-2025 [facility] Medical Records Department [address] [place] [address] History Physical Exam 05/04/25 1124 MR#: [id number] Acct: [id number] Name: NARAYAN OHARA Rep #: [id number] : 1960 64 From: Javi Pérez MD PCP: Dr. Saad Donaldson MD Status:[facility] Location: [place] [address] History and Physical Date of Admission: 05/04/25 Intake Vital Signs 11/30/2412:08 04/14/2514:13 Height 5 ft 7 in 5 ft 7 in Weight: 191 lb BMI 29.9 BP 133/81 H Blood Pressure Location Rt brachial Position Sitting Respiration 17 Pulse 68 Pulse Source Monitor Pulse Oximetry (%) 97 Oxygen Delivery Method room air Intake Visit Reasons: LIPOMA LOWER BACK Chief Complaint: lipoma lower back Is patient in pain?: Yes (sciatic nerve pain) Allergies No Known Allergies Allergy (Verified 04/14/25 14:15) Medications ???Medication ???Instructions ???Recorded ???Confirmed ???Type omeprazole 20 mg capsule,delayed 20 mg PO DAILY 11/10/23 04/14/25 History release rosuvastatin 5 mg tablet (Crestor) 5 mg PO DAILY 11/10/23 04/14/25 History tamsulosin 0.4 mg capsule (Flomax) 0.4 mg PO DAILY 11/10/23 04/14/25 History meloxicam 15 mg tablet 15 mg PO QDAY 04/14/25 04/14/25 History Have you fallen in the past year?: No PFSH Medical History (Updated 04/14/25 @ 14:12 by Candis Fletcher) Wears glasses Wears dentures History of IBS History of edema Former smoker Acid reflux Surgical History History of cardiac catheterization ( 2004) History of wisdom tooth extraction History of cholecystectomy ( 2013) Family History Brother Heart disease CVA (cerebral vascular accident) Social History (Updated 04/14/25 @ 14:12 by Candis Fletcher) Smoking Status: Former smoker alcohol intake: former substance use type: does not use HPI HPI HPI: Patient is a 64-year-old male who is here for a lipoma in his right lower back. 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 He says it is very tender especially when bouncing. ROS General General: No weight change, appetite, fatigue, colon cancer, breast cancer or weakness HEENT HEENT: No difficulty swallowing, eye injury, eye surgery, swollen glands or hoarseness Endo Endocrine: No thyroid disease, diabetes mellitus, thyroid cancer, Hair loss, heat intolerance or cold intolerance Skin Skin: No rash or changing moles Musc Musculoskeletal: No back problems, arthritis, rheumatoid arthritis, gout or joint pain Cardio Cardiovascular: No murmur, pacemaker, heart disease, atrial fibrillation, high blood pressure, heart attack, heart stent, palpitations, shortness of breath with exertion or chest pain Psych Psychiatric: No depression, anxiety or hearing voices Resp Respiratory: No shortness of breath, No sleep apnea, No cough, No COPD, No asthma, No emphysema and No wheezing Gastro Gastrointestinal: No abdominal pain, No nausea or vomiting, Yes diarrhea, Yes constipation, No blood in stool, Yes acid reflux, No hemorrhoids, No ulcers, No gallbladder problem and No black,tarry stools Dago Hematologic: No blood thinners, No blood disorders, No bleeding, No anemia and No blood clots Neuro Neurologic: No system reviewed and no additional complaints, except as documented, No as per HPI, No abnormal gait, No abnormal hearing, No abnormal movements, No abnormal speech, No behavioral changes, No burning sensations, No confusion, No convulsions, No disequilibrium, No dizziness, No localized weakness, No frequent falls, No headache(s), No lack of coordination, No loss of vision, No memory loss, No numbness, No other visual disturbances, No radicular pain, No restless legs, No sensory deficit, No syncope, No tingling, No tremor(s), No weakness and No other Exam Const General: cooperative Orientation: alert and oriented x3 HENMT Head: normal to inspection Neck Neck: normal visual inspection and full ROM Chest Chest palpation inspection: normal inspection of the chest Resp Effort Inspection: normal respiratory effort Auscultation: clear to auscultation bilaterally Cardio Rate: regular rate Rhythm: regular rhythm GI Inspection: non-distended Palpation: soft and nontender Musc Other: Soft mobile mass in the right lower back just above the belt line Skin General: no rashes or lesions noted Neuro General: patient alert and patient oriented x3 Extrem General: full ROM Psych Appearance: grossly normal Mental Status: mental status grossly normal Assessment and Plan Assessment and Plan (1) Lipoma of back: Status: Acute Plan: The patient has what feels to be a lipoma in the lower right back. He would lik (more content not included)...[facility]10-01-2025 Consult note [facility] Medical Records Department [address] [place] [address] Pre-Anesthesia Evaluation 05/04/25 1110 MR#: [id number] Acct: [id number] Name: NARAYAN OHARA Rep #:[id number] : 1960 64 From: Narayan Kaufman PCP: Dr. Saad Donaldson MD Status:REG S DC Y Race: C Location: [place] [address] ASA Classification* ASA Classification ASA Classification: 2 Assessment & Plan Anesthesia* Anesthesia Assessment Anesthesia Assessment: Discussed sedation and/or anesthesia options, risks, benefits, and alternatives with patient/parents/legal guardian/POA. Questions invited. The patient/parents/legal guardian/POA seems to understand and agrees to proceedwith anesthesia plan. Reviewed the physical assessment, medical history, allergy history and patient home medications list prior to surgery/procedure/anesthetic and documented any changes. Performed airway and anesthesia risk assessments. Anesthesia Type Anesthesia Type: General History Source History Obtained from:: Patient and Chart Anesthesia Focused Assessment* Temperature: 99.0 F Pulse Rate: 74 Blood Pressure: 107/66 Respiratory Rate: 16 Pulse Ox: 98 Oxygen Delivery Method: Room Air Airway Assessment Mouth opens: >3 cm Mallampati Score: III Teeth Condition: Dentures Neck Range of motion (ROM): Full ROM Labs Anesthesia Preop lab: CBC WBC, (4.4-11.0) 8.5 K/mm3 10/28/19, 00:10 RBC, (4.6-6.2) 5.09 M/mm3 10/28/19, 00:10 Hgb, (13.0-16.5) 16.4 g/dL 10/28/19, 00:10 Hct, (40-54) 47.2 % 10/28/19, 00:10 Plt Count, (150-450) 201 K/mm3 10/28/19, 00:10 CHEMISTRY Potassium, (3.3-5.1) 4.0 mmol/L 01/01/25, 08:41 Sodium, (133-145) 137 mmol/L 01/01/25, 08:41 BUN, (4-19) 15 mg/dL 01/01/25, 08:41 Creatinine, (0.70-1.20) 1.22 mg/dL H 01/01/25, 08:41 Glucose, (70-99) 114 mg/dL H 01/01/25, 08:41 TSH, (0.358-3.74) 1.84 uIU/mL 08/09/23, 10:49 COAG Pre-Assessment Diagnosis/Proposed Procedure Planned Operative Procedure(s): (R) Excision,Right lower back Lipoma Anesthesia History 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 When Was Last Pacemaker Check QUESTION #4 FULL TEXT: You/Your Family Experience fever (hyperthermia) with Anesthesia Last Oral Intake Last Oral intake: Last Oral Intake NPO since 23:00 05/04/25 10:54 Meds taken in AM with sips of No 05/04/25 10:54 water? Meds patient instructed to take am of surgery PONV PONV - edge brusher: PONV - edge brusher Female No 04/25/25 11:18 HX of Motion Sickness No 04/25/25 11:18 HX of N/V After Surgery No 04/25/25 11:18 Non-Smoker Yes 04/25/25 11:18 Duration of Surgery greater No 04/25/25 11:18 than 60 minutes Number of Risk Factors 1 04/25/25 11:18 PONV Score Low Risk 04/25/25 11:18 Height & Weight Height & Weight: Anesthesia: Height & Weight Height 5 ft 7 in 05/04/25 10:54 Weight: 90 kg 05/04/25 10:54 Body Mass Index (BMI) 31.1 05/04/25 10:54 Respiratory Assessment Respiratory Assessment - edge brusher: Respiratory Tract Infection Hx - edge brusher Hx Respiratory Tract Infection No 04/25/25 11:18 STOP Sleep Apnea STOP Sleep Apnea - edge brusher: STOP Sleep Apnea - edge brusher Hx Hypertension No 04/25/25 11:18 Hx Sleep Apnea No 04/25/25 11:18 CPAP No 04/25/25 11:18 BIPAP Do you snore loudly (louder No 04/25/25 11:18 than talking or can be heard Do you often feel tired/ No 04/25/25 11:18 fatigued/ sleepy during daytime? Has anyone observed you stop No 04/25/25 11:18 breathing during sleep? STOP Results Negative 04/25/25 11:18 QUESTION #5 FULL TEXT : Do you snore loudly (louder than talking or can be heard through closeddoors)? 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 Specify any problems Hx of Preganancy in last 3 N/A 04/25/25 11:18 Months Nurse Filling Out Transfusion VCHRISTIN 04/25/25 11:18 & Questions: Date: 04/25/25 04/25/25 11:18 Time: 11:19 04/25/25 11:18 Patient unable to answer at this time (ie. confused, unrespo /Reproduction History /Reproductive History - edge brusher: /Reproductive Hx- edge brusher Hx Now No 04/25/25 11:18 Gestational Age (in weeks): EDC: Hx Hx Para Hx Section SAB No 04/25/25 11:18 Active Medications Active Medications: Current Medications Generic Name Dose Route Start Last Admin Trade Name Freq PRN Reason Stop Dose Admin Cefazolin Sodium 2 gm/ Sodium 110 mls @ 200 mls/hr 05/04/25 12:15 Chloride IV 05/04/25 12:47 INTRAOP ONE Lactated Ringer's 1,000 mls @ 15 mls/hr 05/04/25 10:45 05/04/25 11:02 IV 15 mls/hr .Q48H DARLEEN Administration PFSH Medical History History of stress test Wears glasses Wears dentures History of IBS History of edema Former smoker Acid reflux Home Medications ?Medication ?Instructions ?Recorded ?Last Taken ?Type omeprazole 20 mg capsule,delayed 20 mg PO DAILY 11/30/23 History release tamsulosin 0.4 mg capsule (Flomax) 0.4 mg PO DAILY 03/2711/30/23 History meloxicam 15 mg tablet 15 mg PO QDAY 04/14/25 Unkno wn History atorvastatin 20 mg tablet 20 mg PO DAILY 04/25/25 Unkn own History Allergy/AdvReac Type Severity Reaction Status Date / Time No Known Allergies Allergy Verified 05/04/25 10:53 Family History Brother Heart disease CVA (cerebral vascular accident) Surgical History Hx of colonoscopy History of cardiac catheterization (~2004) History of wisdom tooth extraction History of cholecystectomy (~2013) Social History Smoking Status: Former smoker alcohol intake: former substance use type: does not use Addt'l Information Additional Findings: > 4 METS Review of Systems (Anesthesia) ROS Narrative System reviewed and no additional complaints, except as documented. Physical Exam Const alert, oriented x3 and average body habitus Resp normal respiratory effort and normal air movement Auscultation: clear to auscultation bilaterally Cardio regular rate and regular rhythm Back/Spine normal ROM Neuro oriented x3 and moves all extremities 05/04/25 1115 MD> Date _ Narayan Johnson MD Cosigner Signature: Date CC: ~ Signed [facility]09-11-2025 Evaluation note* Diagnosis Onset Date Resolution Status Admit Date Lipoma of back acute April 14, 2025 2:00pm [facility] Work Phone: 1(913) 533-966209-11-2025 Evaluation note* Diagnosis Onset Date Resolution Status Admit Date Lipoma of back acute April 14, 2025 2:00pm Urine retention noneactive May 092024 11:06am [facility] Work Phone: 1(461) 316-138009-11-2025 Evaluation note* Diagnosis Onset Date Resolution Status Admit Date Lipoma of back acute April 14, 2025 2:00pm Urine retention noneactive May 092024 11:06am Lipoma of back acute May 182024 12:32pm Urinary retention acute May 18, 2025 12:32pm [facility] Work Phone: 1(901) 174-177304-29-2024 Procedure [facility]23 [facility] Medical Records Department [address] [place] [address] Anesthesia Postop Eval II 05/04/25 1426 MR#: [id number] Acct: [id number] Name: NARAYAN OHRAA Rep #:[id number] : 1960 64 From: Narayan Kaufman PCP: Dr. Saad Donaldson MD Status:RILEY Milligan DC Y Race: C Location: [facility] [place] Anesthesia Postop Eval I Sum Postop Eval Completion status Anesthesia document: Postop Eval 1 completed: Yes Anesthesia Postop Eval I Summary Anesthesia Postop Eval I Summary: Anesthesia Postop Eval I: Assessment Summary Airway patent Yes 05/04/25 12:20 [employer]ER[employer].CSIR Spontaneous unlabored Yes 05/04/25 12:20 VETERANS' COORDINATOR.CSIR respirations Mental status nausea No 05/04/25 12:20 VETERANS' COORDINATOR.CSIR Vomiting No 05/04/25 12:20 [employer]ETERANS' COORDINATOR.CSIR Anesthesia Postop Eval I: Fluid Summary Crystalloid volume administer 1,000 05/04/25 12:20 VETERANS' COORDINATOR.CSIR (ml) Colloids volume administered ( ml) Blood Product volume administered (ml) Total IV fluid infused 1,000 05/04/25 12:20 VETERANS' COORDINATOR.CSIR Anesthesia Postop Eval I: Summary Notes Anesthesia Complication No 05/04/25 12:20 VETERANS' COORDINATOR.CSIR Anesthesia Complication Comment: Post-operative progress note Anesthesia: Postop Eval II Evaluation Mental status: Awake and Calm Pain Level: 1 nausea: No Vomiting: No Complications Anesthesia Complication: No 05/04/25 1427 > Date _ Narayan Johnson MD Cosigner Signature: Date CC: ~ [facility]igned [facility] Author Nilda Rdz [facility] Note Date/Time May 04, 2025 12 :21pm [facility] Medical Records Department [address] [place] [address] Anesthesia Postop Eval I 05/04/25 1220 MR#: [id number] Acct: [id number] Name: NARAYAN OHARA Rep #:[id number] : 1960 64 From: Nilda Rdz CRNA PCP: Dr. Saad Donaldson MD Status:REG S DC Y Race: C Location: [place] [address] Anesthesia: Postop Eval I Current Vital Signs Temperature: 97.1 F Pulse Rate: 104 Blood Pressure: 160/84 Respiratory Rate: 20 Pulse Ox: 93 Assessment Airway patent: Yes Spontaneous unlabored respirations: Yes nausea: No Vomiting: No Anesthesia Complication: No Fluid Hydration Crystalloid volume administer (ml): 1,000 Total IV fluid infused: 1,000 Progress Note Anesthesia document: Postop Eval 1 completed: Yes 05/04/25 122 <Electronically signed by Nilda jimenez CRNA> Date _ Nilda Rdz VETERANS' COORDINATOR Cosigner Signature: Date CC: ~ Signed [facility] Work Phone: Consult note Author Narayan Johnson [facility] Note Date/Time May 04, 2025 2: 27pm [facility] Medical Records Department [address] [place] [address] Anesthesia Postop Eval II 05/04/25 1426 MR#: [id number] Acct: [id number] Name: NARAYAN OHARA Rep #:[id number] : 1960 64 From: Narayan Kaufman PCP: Dr. Saad Donaldson MD Status:DEP S DC Y Race: C Location: [facility] [place] Anesthesia Postop Eval I Sum Postop Eval Completion status Anesthesia document: Postop Eval 1 completed: Yes Anesthesia Postop Eval I Summary Anesthesia Postop Eval I Summary: Anesthesia Postop Eval I: Assessment Summary Airway patent Yes 05/04/25 12:20 VETERANS' COORDINATOR.CSIR Spontaneous unlabored Yes 05/04/25 12:20 VETERANS' COORDINATOR.CSIR respirations Mental status nausea No 05/04/25 12:20 VETERANS' COORDINATOR.CSIR Vomiting No 05/04/25 12:20 VETERANS' COORDINATOR.CSIR Anesthesia Postop Eval I: Fluid Summary Crystalloid volume administer 1,000 05/04/25 12:20 VETERANS' COORDINATOR.CSIR (ml) Colloids volume administered ( ml) Blood Product volume administered (ml) Total IV fluid infused 1,000 05/04/25 12:20 VETERANS' COORDINATOR.CSIR Anesthesia Postop Eval I: Summary Notes Anesthesia Complication No 05/04/25 12:20 VETERANS' COORDINATOR.CSIR Anesthesia Complication Comment: Post-operative progress note Anesthesia: Postop Eval II Evaluation Mental status: Awake and Calm Pain Level: 1 nausea: No Vomiting: No Complications Anesthesia Complication: No 05/04/25 1427 <Electronically signed by Narayan Johnson MD> Date _ Narayan Johnson MD Cosign Signature: Date CC: ~ Signed [facility] Work Phone: Discharge summary Author Javi Pérez [facility] Note Date/Time May 04, 2025 12 :24pm [facility] Medical Records Department [address] [place] [address] Instructions for Home/Discharge Instructions 05/04/25 1219 MR#: [id number] Acct: [id number] Name: NARAYAN OHARA Rep #:[id number] : 1960 64 From: Javi borges MD PCP: Dr. Saad Donaldson MD Status:REG S DC Discharge Instructions Diet Discharge Diet: Light diet - advance as tolerated Activity Discharge Activity: May Drive (when off narcotics) and May Shower Dressing / Incision Call your doctor if your incision/area has: Continuous Slow Oozing, Sudden Increased Bleeding, Increased Pain/ Swelling, Increased Redness, Foul Smelling Discharge and Swelling at the incision site Call your doctor if you observe: Fever of 101 or Higher Cleanse incision/area with: Soap & Water Follow Up Care Please Follow Up With: Javi Pérez MD When: Please call to schedule 2 week follow up appointment. [phone] Test Results: Test results from this visit will be discussed in further detail at your follow- up appointment, if applicable. Discharge Plan Admission Attending Provider: Javi Pérez Primary Care Provider: Saad Donaldson Instructions Print Language: Guamanian Discharge Orders/Prescriptions Prescriptions: New oxycodone 5 mg Tablet 5 - 10 mg PO Q4H PRN PRN (Reason: Pain Score 4-10) 5 Days Qty: 10 0RF No Action tamsulosin [Flomax] 0.4 mg capsule 0.4 mg PO DAILY omeprazole 20 mg capsule,delayed release(DR/EC) 20 mg PO DAILY meloxicam 15 mg tablet 15 mg PO QDAY atorvastatin 20 mg tablet 20 mg PO DAILY Referrals / Follow Up: Saad Donaldson MD [Primary Care Provider, Family Practice] Disposition Disposition (needs filled in before D/C Order can be placed): Home, Self Care 05/04/25 1224<Electronically signed by Javi Pérez MD>Javi Pérez MD CC: Dr. Saad Donaldson MD ~ Signed [facility] Work Phone: Evaluation noteNo assessment information available [facility] Work Phone: Evaluation note* Diagnosis Onset Date Resolution Status Constipation acute [facility] Work Phone: History and physical note Author Javi Pérez [facility] December 01, 2023 1:45pm Note Date/Time December 01, 2023 1:4 5pm [facility] Medical Records Department [address] [place] [address] History & Physical Exam 12/01/23 1345 MR#: [id number] Acct: [id number] Name: NARAYAN OHARA Rep #:[id number] : 1960 63 From: Javi borges MD PCP: Dr. Saad Donaldson MD Status:REG S DC Location: [place] [address] History and Physical Date of Admission: 12/01/23 Intake Vital Signs 10/26/2022:44 11/09/2412:24 Height 5 ft 7 in 5 ft 7 in Weight: 195 lb BMI 30.5 BP 130/80 H Blood Pressure Location Rt brachial Position Sitting Respiration 17 Pulse 62 Pulse Source Monitor Pulse Oximetry (%) 98 Oxygen Delivery Method room air Intake Visit Reasons: COLONOSCOPY SCREENING, IBS Chief Complaint: colonoscopy screening Is patient in pain?: No Allergies No Known Allergies Allergy (Verified 11/10/23 13:26) Medications omeprazole 20 mg capsule,delayed release 20 mg PO DAILY 11/10/23 [History Confirmed 11/10/23] rosuvastatin 5 mg tablet (Crestor) 5 mg PO DAILY 11/10/23 [History Confirmed 11/10/23] tamsulosin 0.4 mg capsule (Flomax) 0.4 mg PO DAILY 11/10/23 [History Confirmed 11/10/23] [facility] Medical History (Updated 11/10/23 @ 13:[address] Javi Pérez MD) Acid reflux Surgical History (Updated 11/10/23 @ 13:24 by Candis Fletcher) History of cholecystectomy Family History (Updated 11/10/23 @ 13:24 by Candis Fletcher) Brother Heart disease CVA (cerebral vascular accident) Social History (Updated 11/10/23 @ 13:24 by Candis Fletcher) Smoking Status: Current every day smoker alcohol intake: never substance use type: does not use HPI HPI HPI: Patient is a 63-year-old male here to discuss his constipation and here for colonoscopy. Patient reports his bowels have become worse and he has tried MiraLAX and fiber and several other medications to no avail. He is having largebowel movements when they do happen. The patient does not have any blood in hisstool. He reports his last colonoscopy was in 2016 and no polyps were removed. ROS General General: No weight change, appetite, fatigue, colon cancer, breast cancer or weakness HEENT HEENT: No difficulty swallowing, eye injury, eye surgery, swollen glands or hoarseness Endo Endocrine: No thyroid disease, diabetes mellitus, thyroid cancer, Hair loss, heat intolerance or cold intolerance Skin Skin: No rash or changing moles Musc Musculoskeletal: No back problems, arthritis, rheumatoid arthritis, gout or joint pain Cardio Cardiovascular: No murmur, pacemaker, heart disease, atrial fibrillation, high blood pressure, heart attack, heart stent, palpitations, shortness of breat withexertion or chest pain Psych Psychiatric: No depression, anxiety or hearing voices Resp Respiratory: No shortness of breath, No sleep apnea, No cough, No COPD, No asthma, No emphysema and No wheezing Gastro Gastrointestinal: No abdominal pain, No nausea or vomiting, Yes diarrhea, Yes constipation, No blood in stool, Yes acid reflux, No hemorrhoids, No ulcers, No gallbladder problem and No black,tarry stools Dago Hematologic: No blood thinners, No blood disorders, No bleeding, No anemia and No blood clots Neuro Neurologic: No system reviewed and no additional complaints, except as documented, No as per HPI, No abnormal gait, No abnormal hearing, No abnormal movements, No abnormal speech, No behavioral changes, No burning sensations, No confusion, No convulsions, No disequilibrium, No dizziness, No localized weakness, No frequent falls, No headache(s), No lack of coordination, No loss ofvision, No memory loss, No numbness, No other visual disturbances, No radicular pain, No restless legs, No sensory deficit, No syncope, No tingling, No tremor(s), No weakness and No other Exam Const General: cooperative Orientation: alert and oriented x3 HENMT Head: normal to inspection Neck Neck: normal visual inspection and full ROM Chest Chest palpation & inspection: normal inspection of the chest Resp Effort & Inspection: normal respiratory effort Auscultation: clear to auscultation bilaterally Cardio Rate: regular rate Rhythm: regular rhythm GI Inspection: non-distended Palpation: soft and nontender Skin General: no rashes or lesions noted Neuro General: patient alert and patient oriented x3 Extrem General: full ROM Psych Appearance: grossly normal Mental Status: mental status grossly normal Assessment and Plan Assessment and Plan (1) Constipation: Status: Acute Qualifiers: Constipation type: unspecified constipation type Qualified Code(s): K59.00 - Constipation, unspecified Plan: I will perform colonoscopy form to evaluate why he is feeling so backed up and constipated to ensure there is no stricture or mass. His last colonoscopy was 8years ago. I explained endoscopy in detail to the patient. I explained the risks including but not limited to stroke or heart attack with anesthesia, perforation of the GI tract, bleeding, infection. I explained that any of thesecould necessitate further emergency surgery. The patient understands and all questions were answered sufficiently. The patient wishes to proceed with procedure. Javi Pérez MD Pager: [facility] [address] [place] [address] [address] [place] [address] Office: I have examined the patient and the H&P has been reviewed. There are no clinicalchanges since date of exam. 12/01/23 1345 <Electronically signed by Javi Pérez MD> Cosigner Signature (if applicable): CC: Dr. Javi Pérez MD; Dr. Saad Donaldson MD~ Signed [facility] Work Phone: Progress note Author Ayala Jasso [facility] Note Date/Time May 18, 2025 1 :39pm [facility] [address] [place] [address] OFFICE VISIT Date of Service: 05/18/25 MR#: [id number] Acct: [id number] Name: NARAYAN OHARA Rep #: [id number] : 1960 Provider: NICOLETTE Jasso Age/Sex: 64/M Location: [facility] Status: Signed Intake Vital Signs 05/04/25 10:54 Height 5 ft 7 in Intake Visit Reasons: S/P EXCISION OF LIPOMA - Chief Complaint: excision of lipoma from right lower back Baby Formula Mixer Required: No Is patient in pain?: No Allergies No Known Allergies Allergy (Verified 05/18/25 12:43) Medications ?Medication ?Instructions ?Recorded ?Confirmed ?Type omeprazole 20 mg capsule,delayed 20 mg PO DAILY 05/18/25 History release tamsulosin 0.4 mg capsule (Flomax) 0.4 mg PO DAILY 03/2705/18/25 History meloxicam 15 mg tablet 15 mg PO QDAY 04/14/2505/18 History atorvastatin 20 mg tablet 20 mg PO DAILY 04/25/2505/04 History Have you fallen in the past year?: No Subjective Details: Patient is a 64 y/o M I am following s/p excision of subcutaneous mass right lower back by Dr. Pérez on 05/04/25. Patient tolerated the procedure well. Patient has followed up with our office multiple times due to post-procedure urinary retention. Patient has had 2 Rosario catheters placed. He currently has a Rosario catheter in and is scheduled to see Dr. Kwan tomorrow for evaluation. Patient denies any concerns with the right lower back incision. He denies any drainage or erythema. Pathology demonstrated: MICROSCOPIC DIAGNOSIS A. Soft tissue, right lower back, ?lipoma?, excision: - Mature adipose consistent with lipoma. Objective Details: Lower back, right- incision c/d/i. No erythema or infection noted. Coding Level of Care Code Global Post Op Diagnoses Lipoma of back D17.1 Urinary retention R33.9 [facility] Medical History (Updated 05/12/25 @ 14:28 by Candis Fletcher) History of stress test Wears glasses Wears dentures History of IBS History of edema Former smoker Acid reflux Surgical History (Updated 05/18/25 @ 12:44 by Nina Turner) S/P excision of lipoma Hx of colonoscopy History of cardiac catheterization (~2004) History of wisdom tooth extraction History of cholecystectomy (~2013) Family History Brother Heart disease CVA (cerebral vascular accident) Social History Smoking Status: Former smoker alcohol intake: former substance use type: does not use Assessment and Plan (No Qualifiers) Assessment and Plan (1) Lipoma of back: Status: Acute Plan: No restrictions at this time Incision has completely healed (2) Urinary retention: Status: Acute Plan: Follow-up with Dr. Kwan tomorrow for possible Rosario removal 05/18/25 2479 <Electronically signed by Ayala DE ANDA PA-C> Date _ Ayala DE ANDA PA-C Cosigner Signature: Date (if applicable) CC: Dr. Saad Donaldson MD ~ [facility] Work Phone: Reason for referral (narrative)No reason for referral information availableWFirelands [facility] Work Phone: Advance Directives No Advanced Directives Records Found Advance Directive Response Recorded Date/ Time Living Will No October 28, 2019 12:11am Power of Assembly Press Operator No October 27 12:11am Advance Directive Response Recorded Date/ Time Living Will No October 27, 2019 11:11pm Power of Assembly Press Operator No October 26 11:11pm Advance Directive Response Recorded Date/ Time Living Will No November 27, 2023 12:10pm Power of Assembly Press Operator No November 26 12:10pm Advance Directive Response Recorded Date/ Time Do you have a Healthcare Power of Assembly Press Operator? No April 25, 2025 11:18am Summary Purpose Family History No Family History Records Found Relationship Condition Age at Onset Recorded Date/T ivan brother Cardiac disease Unknown Cerebrovascular accident (CVA) Unknown Chief Complaint and Reason for Visit Chief Complaint SMOKER Chief Complaint SMOKER COLONOSCOPY SCREENING, IBS Reason for Visit Constipation Chief Complaint Admit Date Hyperlipidemia, unspecified October 30, 2024 9:38am Chief Complaint Admit Date LIPOMA LOWER BACK April 14, 2025 2:00pm Chief Complaint Admit Date LIPOMA LOWER BACK April 14, 2025 2:00pm Excision,Right lower back Lipoma May 04, 2025 10:29am Excision,Right lower back Lipoma May 04, 2025 11:24am Reason for Visit Admit Date Lipoma of back April 14, 2025 2:00pm Chief Complaint Admit Date LIPOMA LOWER BACK April 14, 2025 2:00pm Excision,Right lower back Lipoma May 04, 2025 10:29am Excision,Right lower back Lipoma May 04, 2025 11:24am Urinary retention May 09, 2025 11 :06am Reason for Visit Admit Date Lipoma of back April 14, 2025 2:00pm Urine retention May 09, 2025 11 :06am Chief Complaint Admit Date LIPOMA LOWER BACK April 14, 2025 2:00pm Excision,Right lower back Lipoma May 04, 2025 10:29am Excision,Right lower back Lipoma May 04, 2025 11:24am Urinary retention May 09, 2025 11 :06am urine retention/rosario May 12, 2025 3:10pm S/P EXCISION OF LIPOMA 05-04 12:32pm Reason for Visit Admit Date Lipoma of back April 14, 2025 2:00pm Urine retention May 09, 2025 11 :06am Lipoma of back May 18, 2025 1 2:32pm Urinary retention May 18, 2025 1 2:32pm Additional Source Comments Care Teams (unrecognized sec tion and content) Team Status: Active Member Role Status Dates Dr. Saad Donaldson MD Family Provider Active Dr. Saad Donaldson MD Primary Care Provider Active Team Status: Inactive Member Role Status Dates Dr. Saad Donaldson MD Primary Care Provider, Attending Provider Active Team Status: Inactive Member Role Status Dates Dr. Saad Donaldson MD Primary Care Provi allison, Attending Provider, Referring Provider Active Team Status: Inactive Member Role Status Dates Dr. Saad Donaldson MD Primary Care Provider, Referring Provider Active Dr. Javi Pérez MD Attending Provider Active Team Status: Active Member Role Status Dates Dr. Saad Donaldson MD Primary Care Provider, Referring Provider Active Dr. Javi Pérez MD Attending Provider, Other Provider Active Team Status: Inactive Member Role Status Dates Dr. Saad Donaldson MD Primary Care Provider Active Start: October 30, 2024 End: October 30, 2024 Dr. Saad Donaldson MD Attending Provider Active Start: October 30, 2024 End: October 30, 2024 Dr. Saad Donaldson MD Referring Provider Active Start: October 30, 2024 End: October 30, 2024 Team Status: Inactive Member Role Status Dates Dr. Saad Donaldson MD Primary Care Provider Active Start: January 01, 2025 End: January 01, 2025 Dr. Saad Donaldson MD Attending Provider Active Start: January 01, 2025 End: January 01, 2025 Dr. Saad Donaldson MD Referring Provider Active Start: January 01, 2025 End: January 01, 2025 Team Status: Active Member Role/Relationship Status Dates Dr. Saad Donaldson MD Primary Care Provider Active Team Status: Inactive Member Role/Relationship Status Dates Dr. Saad Donaldson MD Primary Care Provider Active Start: January 01, 2025 End: January 01, 2025 Dr. Saad Donaldson MD Attending Provider Active Start: January 01, 2025 End: January 01, 2025 Dr. Saad Donaldson MD Referring Provider Active Start: January 01, 2025 End: January 01, 2025 Team Status: Inactive Member Role/Relationship Status Dates Dr. Saad Donaldson MD Primary Care Provider Active Start: April 14, 2025 End: April 14, 2025 Dr. Saad Donaldson MD Referring Provider Active Start: April 14, 2025 End: April 14, 2025 Dr. Javi Pérez MD Attending Provider Active Start: April 14, 2025 End: April 14, 2025 Team Status: Active Member Role/Relationship Status Dates Dr. Saad Donaldson MD Primary care physician Active Team Status: Inactive Member Role/Relationship Status Dates Dr. Saad Donaldson MD Primary care physician Active Start: April 14, 2025 End: April 14, 2025 Dr. Saad Donaldson MD Referring Provider Active Start: April 14, 2025 End: April 14, 2025 Dr. Javi Pérez MD Attending physician Active Start: April 14, 2025 End: April 14, 2025 Team Status: Inactive Member Role/Relationship Status Dates Dr. Saad Donaldson MD Primary care physician Active Start: May 04, 2025 End: May 04, 2025 Dr. Javi Pérez MD Attending physician Active Start: May 04, 2025 End: May 04, 2025 Dr. Javi Pérez MD Referring Provider Active Start: May 04, 2025 End: May 04, 2025 Team Status: Active Member Role/Relationship Status Dates Dr. Saad Donaldson MD Primary care physician Active Start: May 04, 2025 Dr. Javi Pérez MD Attending physician Active Start: May 04, 2025 Dr. Javi Pérez MD Referring Provider Active Start: May 04, 2025 Dr. Javi Pérez MD Nurse Practitioner Active Start: May 04, 2025 Team Status: Inactive Member Role/Relationship Status Dates Dr. Saad Donaldson MD Primary care physician Active Start: May 09, 2025 End: May 09, 2025 Dr. Saad Donaldson MD Referring Provider Active Start: May 09, 2025 End: May 09, 2025 Dr. Javi Pérez MD Attending physician Active Start: May 09, 2025 End: May 09, 2025 Team Status: Active Member Role/Relationship Status Dates Dr. Saad Donaldson MD Primary care physician Active Start: May 09, 2025 Ayala DE ANDA PA-C Attending physician Active Start: May 09, 2025 Ayala DE ANDA PA-C Referring Provider Active Start: May 09, 2025 Team Status: Inactive Member Role/Relationship Status Dates Dr. Saad Donaldson MD Primary care physician Active Start: May 12, 2025 End: May 12, 2025 Dr. Saad Donaldson MD Referring Provider Active Start: May 12, 2025 End: May 12, 2025 Dr. Javi Pérez MD Attending physician Active Start: May 12, 2025 End: May 12, 2025 Team Status: Inactive Member Role/Relationship Status Dates Dr. Saad Donaldson MD Primary care physician Active Start: May 18, 2025 End: May 18, 2025 Dr. Saad Donaldson MD Referring Provider Active Start: May 18, 2025 End: May 18, 2025 Ayala DE ANDA PA-C Attending physician Active Start: May 18, 2025 End: May 18, 2025 Goals (unrecognized section and content) Goals may be documented in a n alternate sectionGoals may be documented in an alternate sectionGoals may be documented in an alternate sectionGoals may be documented in an alternate sectionGoals may be documented in an alternate sectionGoals may be documented in an alternate sectionGoals may be documented in an alternate section (unrecognized sect ion and content) No Status Records FoundNo Status Records Found INFORMATION SOURCE (unrecogn ized section and content) DATE CREATED AUTHOR 02/01/2023 [facility] DATE CREATED AUTHOR AUTHOR'S ORGANIZ ATION 06/02/2025 [facility] FOR RECORDS PERTAINING TO PATIENTS WHO ARE [...] BE BASED ON THE PRIMARY CLINICAL RECORDS. [employer] provides no warranty or guarantee of the accuracy or completeness of information in this document.
[2025-07-09 10:47] LABS: AST(SGOT) 26 U/L (<=37); Alanine Aminotransfer ALT/SGPT 34 U/L (<=46); Albumin, Serum 4.2 g/dL (3.4-4.8); Alkaline Phosphatase 60 U/L (40-129); Anion Gap 9 (5-15); BUN 19 mg/dL (4-19); BUN/Creat Ratio 14.2 RATIO (10-20); Calcium,Total 9.4 mg/dL (7.6-11.0); Carbon Dioxide 25.1 mmol/L (21.0-32.0); Chloride 106 mmol/L (98-108); Cholesterol 146 mg/dL (<=200); Globulin 2.9 g/dL (2.2-4.2); Glucose 109 mg/dL (70-99); Low Density Lipoprotein Calc. 80 mg/dL; Potassium 4.5 mmol/L (3.3-5.1); Triglycerides 99 mg/dL; Very Low Density Lipoprotein 20 mg/dL (5-40); cholesterol:hdl ratio screen 3.08
== END | disposition home or self-care (01) ==
LOC: LAB 09:54
PROVIDERS: PCP Family Medicine; Referring Provider Family Medicine; Visit Provider Family Medicine
DX: E78.5 Hyperlipidemia, unspecified (principal)
CPT/HCPCS: 36415; 80053; 80061